=== PATIENT | female | born 1990 | race Caucasian/White ===

== ENCOUNTER 2017-08-28 15:27 | Emergency (ER) | payer OTHER ==
[~2017-08-28] VITALS: Ht 160 cm; Wt 72.6 kg
[~2017-08-28 15:27] MED LIST: ACET325 PO; ACYC400 PO; AMOX500 PO; AZIT250 PO; AZIT500 PO; Augmentin 875-1 EACH PO; CEPH500 PO; CIPR500 PO; CIPRO500 MG PO; DIPATR PO; DIPH50 PO; DOXY100; Flagyl500 MG PO; HYDACE5 PO; HYDR1TAB94 PO; Hydrocodone-Ap1 EA23 PO; IBUP600 PO; MEDR150I; MUPI2TO TOP; NITR100CA PO; Norco 5-325 Ta1 EACH PO; ONDA4ODT MM; ONDA8ODT MM; OXYACE5T PO; OXYC5; PHENA200 PO; PREN-16 PO; PROM25 PO; PSEU120ER PO; Percocet 5-3251 EACH PO; Phentermine HCl15 MG PO; Prilosec20 MG PO; Pseudoephedrine30 MG PO; RXHYDGUAS PO; SULTRIDS PO; Ultram50 MG PO; Zofran Odt4 MG PO; Zofran Odt4 MG SL; Zofran Odt8 MG SL; [UNRECOGNIZED DRUG - REMARK]
[2017-08-28 15:54] LABS: Hematocrit 40.3 % (33.0-51.0); Hemoglobin 14.4 g/dL (11.5-16.0); Mean Corpuscular HGB 37.6 pg (26.0-34.0); Mean Corpuscular HGB Conc 35.7 g/dL (31.5-36.5); Mean Corpuscular Volume 105 fL (80-100); Mean Platelet Volume 10.2 fL (9.1-12.4); Platelet Count 296 K/mm3 (150-400); RDW Coefficient Variation 12.9 % (11.7-14.2); RDW Standard Deviation 49.7 fL (35.1-46.3); Red Blood Cell Count 3.83 M/mm3 (3.80-5.20); White Blood Cell Count 4.61 K/mm3 (4.00-11.30)
[2017-08-28 16:11] LABS: Anion Gap 9 mmol/L (6-16); Blood Urea Nitrogen 7 mg/dL (8-24); Bun/Creatinine Ratio 8.7 (12.0-20.0); CO2, Blood 23 mmol/L (21-32); Calcium, Blood 8.7 mg/dL (8.5-10.1); Chloride, Blood 109 mmol/L (98-108); Glomerular Filtration Rate >60 (60-); Glucose, Blood 101 mg/dL (70-99); Potassium, Blood 3.4 mmol/L (3.5-5.5); Sodium, Blood 141 mmol/L (136-145)
[2017-08-28] MEDS ORDERED: Prilosec Otc20 MG PO (16:20)
[2017-08-28] MEDS ORDERED: Norco 5-325 Ta1 EACH PO (16:42)
== END 2017-08-28 17:07 | disposition home or self-care (01) ==
LOC: ER 15:27
PROVIDERS: Emergency Medicine
DX: S06.0X9A Concussion with loss of consciousness of unspecified duration, initial encounter (principal); S16.1XXA Strain of muscle, fascia and tendon at neck level, initial encounter; S29.012A Strain of muscle and tendon of back wall of thorax, initial encounter; S39.012A Strain of muscle, fascia and tendon of lower back, initial encounter; S60.222A Contusion of left hand, initial encounter; V49.9XXA Car occupant (driver) (passenger) injured in unspecified traffic accident, initial encounter
CPT/HCPCS: 70450; 72125; 72128; 72131; 73130; 80048; 85027; J1885; J2405; J3010

== ENCOUNTER → 2017-09-02 | Outpatient (CLI) | payer OTHER ==
[~2017-09-02] MED LIST changes: +Prilosec Otc20 MG PO
== END ==
LOC: LAB SHORT 15:30 → LAB 15:30
DX: N39.0 Urinary tract infection, site not specified (principal)
CPT/HCPCS: 87086

== ENCOUNTER 2020-06-16 12:32 | Inpatient (IN) | payer OTHER ==
[~2020-06-16] VITALS: Ht 162.6 cm; Wt 98.0 kg
[2020-06-16 13:39] LABS: BASOPHILS ABSOLUTE AUTO 0.04 K/mm3 (0.00-0.23); BASOPHILS PERCENT AUTO 0 % (0-2); EOSINOPHILS ABSOLUTE AUTO 0.02 K/mm3 (0.00-0.68); EOSINOPHILS PERCENT AUTO 0 % (0-6); Hematocrit 22.5 % (33.0-51.0); IMMATURE GRAN ABSOLUTE AUTO 0.13 K/mm3 (0.00-0.10); IMMATURE GRAN PERCENT AUTO 1 % (0-1); LYMPHOCYTES ABSOLUTE AUTO 1.05 K/mm3 (0.84-5.20); LYMPHOCYTES PERCENT AUTO 9 % (21-46); MONOCYTES ABSOLUTE AUTO 0.79 K/mm3 (0.16-1.47); MONOCYTES PERCENT AUTO 6 % (4-13); Mean Corpuscular HGB 43.5 pg (26.0-34.0); Mean Corpuscular HGB Conc 35.6 g/dL (31.5-36.5); Mean Corpuscular Volume 122 fL (80-100); Mean Platelet Volume 9.6 fL (9.1-12.4); NEUTROPHILS ABSOLUTE AUTO 10.22 K/mm3 (1.96-9.15); NEUTROPHILS PERCENT AUTO 83 % (41-73); NRBC ABSOLUTE 0.02 K/mm3 (0.00-0.02); NRBC Auto 0.2 /100 WBC (0.0-0.2); Platelet Count 199 K/mm3 (150-400); RDW Coefficient Variation 19.3 % (11.7-14.2); RDW Standard Deviation 86.7 fL (35.1-46.3); Red Blood Cell Count 1.84 M/mm3 (3.80-5.20); White Blood Cell Count 12.25 K/mm3 (4.00-11.30)
[2020-06-16 13:50] LABS: Alanine Aminotransfer (ALT/SGP 43 U/L (12-78); Albumin, Blood 2.3 g/dL (3.4-5.0); Albumin/Globulin Ratio 0.6 (0.8-1.8); Alk Phos 238 U/L (50-136); Anion Gap 10 mmol/L (6-16); Aspartate Aminotrans (AST/SGOT 175 U/L (12-37); Blood Urea Nitrogen 13 mg/dL (8-24); CO2, Blood 39 mmol/L (21-32); Calcium, Blood 8.1 mg/dL (8.5-10.1); Chloride, Blood 80 mmol/L (98-108); Creatinine, Blood 0.59 mg/dL (0.40-1.00); Ethanol (Alcohol), Blood, Med <3 mg/dL; Globulin, Blood 3.8 g/dL (2.2-4.0); Glomerular Filtration Rate >60 (60-); Glucose, Blood 125 mg/dL (70-99); Potassium, Blood 2.5 mmol/L (3.5-5.5); Sodium, Blood 129 mmol/L (136-145); Total Protein, Blood 6.1 g/dL (6.4-8.2)
[2020-06-16 14:01] LABS: International Normalized Ratio 2.17; Prothrombin Time Results 22.2 Sec (9.7-11.5)
[2020-06-16 14:11] LABS: Acetaminophen, Random <2.0 ug/mL (10.0-30.0)
[2020-06-16 16:58] LABS: BASOPHILS ABSOLUTE AUTO 0.02 K/mm3 (0.00-0.23); BASOPHILS PERCENT AUTO 0 % (0-2); EOSINOPHILS ABSOLUTE AUTO 0.01 K/mm3 (0.00-0.68); EOSINOPHILS PERCENT AUTO 0 % (0-6); Hematocrit 18.5 % (33.0-51.0); Hemoglobin 6.2 g/dL (11.5-16.0); IMMATURE GRAN ABSOLUTE AUTO 0.06 K/mm3 (0.00-0.10); IMMATURE GRAN PERCENT AUTO 1 % (0-1); LYMPHOCYTES ABSOLUTE AUTO 0.76 K/mm3 (0.84-5.20); LYMPHOCYTES PERCENT AUTO 8 % (21-46); MONOCYTES ABSOLUTE AUTO 0.63 K/mm3 (0.16-1.47); MONOCYTES PERCENT AUTO 7 % (4-13); Mean Corpuscular HGB 42.2 pg (26.0-34.0); Mean Corpuscular HGB Conc 33.5 g/dL (31.5-36.5); Mean Corpuscular Volume 126 fL (80-100); Mean Platelet Volume 9.8 fL (9.1-12.4); NEUTROPHILS ABSOLUTE AUTO 7.75 K/mm3 (1.96-9.15); NEUTROPHILS PERCENT AUTO 84 % (41-73); NRBC ABSOLUTE 0.03 K/mm3 (0.00-0.02); NRBC Auto 0.3 /100 WBC (0.0-0.2); Platelet Count 153 K/mm3 (150-400); RDW Coefficient Variation 19.9 % (11.7-14.2); RDW Standard Deviation 90.8 fL (35.1-46.3); Red Blood Cell Count 1.47 M/mm3 (3.80-5.20); White Blood Cell Count 9.23 K/mm3 (4.00-11.30)
[2020-06-16] MEDS ORDERED: OMEP20ER PO (18:35)
--- NOTE | 2020-06-16 18:55 | NUR ---
PT ARRIVES TO ICU BED 8 VIA STRETCHER, SHE HAS 6 LINES INFUSING AT THIS TIME. BLOOD @125ML/NS @125ML/HR PROTONIX @ 10ML/HR MAGNESIUM @ 25ML/HR K+ @ 50ML/HR SANDOSTATIN @ 50MCG/HR, HER EYES ARE JAUNDICES, SKIN IS SLIGHTLY JAUNDICES, ABDOMEN IS ROUND,DISTENDED AND TENDER TO PALPATION, IV SITES WNL, 18G EACH A/C AND 20G IN RIGHT WRIST. PT ANSWERING QUESTIONS APPROPRIATELY AND DENIES ANY N/V AT THIS TIME. MOUTH RINSED AND TEETH BRUSHED PER PATIENT REQUEST FOR BLOOD IN MOUTH. NO ACTIVE SIGNS OF BLEEDING AT THIS MOMENT. PT IS PLEASANT AND COOPERATIVE.
--- NOTE | 2020-06-16 19:15 | NUR ---
ASSUMED CARE OF PT, BEDSIDE REPORT RECEIVED. PT IS RESTING QUIETLY RECLINING IN BED, DENIES CURRENT N/V, DENIES CP/PRESSURE, DENIES SOB/DYSPNEA, DENIES NUMBNESS/TINGLING. GTTS VERIFIED WITH OFFGOING RN, 1ST UNIT PRBCS TRANSFUSING AT 175 ML/HR AT THIS TIME, PLAN FOR CHEM 8 AND CBC 30 MINUTES AFTER TRANSFUSION COMPLETE AND THEN TO TRANSFUSE 2 MORE UNITS PRBCS. LABS AND VITAL SIGNS REVIEWED WITH OFFGOING RN.
[2020-06-16 20:34] LABS: BASOPHILS ABSOLUTE AUTO 0.01 K/mm3 (0.00-0.23); BASOPHILS PERCENT AUTO 0 % (0-2); EOSINOPHILS ABSOLUTE AUTO 0.01 K/mm3 (0.00-0.68); EOSINOPHILS PERCENT AUTO 0 % (0-6); Hemoglobin 6.6 g/dL (11.5-16.0); IMMATURE GRAN ABSOLUTE AUTO 0.04 K/mm3 (0.00-0.10); IMMATURE GRAN PERCENT AUTO 1 % (0-1); LYMPHOCYTES ABSOLUTE AUTO 0.91 K/mm3 (0.84-5.20); LYMPHOCYTES PERCENT AUTO 11 % (21-46); MONOCYTES ABSOLUTE AUTO 0.64 K/mm3 (0.16-1.47); MONOCYTES PERCENT AUTO 7 % (4-13); Mean Platelet Volume 9.7 fL (9.1-12.4); NEUTROPHILS ABSOLUTE AUTO 7.05 K/mm3 (1.96-9.15); NEUTROPHILS PERCENT AUTO 81 % (41-73); Platelet Count 139 K/mm3 (150-400); White Blood Cell Count 8.66 K/mm3 (4.00-11.30)
[2020-06-16 20:49] LABS: Anion Gap 7 mmol/L (6-16); Blood Urea Nitrogen 15 mg/dL (8-24); Bun/Creatinine Ratio 22.3 (12.0-20.0); CO2, Blood 35 mmol/L (21-32); Calcium, Blood 6.8 mg/dL (8.5-10.1); Chloride, Blood 91 mmol/L (98-108); Creatinine, Blood 0.67 mg/dL (0.40-1.00); Glomerular Filtration Rate >60 (60-); Glucose, Blood 97 mg/dL (70-99); Potassium, Blood 3.6 mmol/L (3.5-5.5); Sodium, Blood 133 mmol/L (136-145)
[2020-06-16 20:57] LABS: Hematocrit 19.2 % (33.0-51.0); Mean Corpuscular HGB Conc 34.4 g/dL (31.5-36.5); Mean Corpuscular Volume 116 fL (80-100); Red Blood Cell Count 1.65 M/mm3 (3.80-5.20)
[2020-06-17 01:16] LABS: BASOPHILS ABSOLUTE AUTO 0.02 K/mm3 (0.00-0.23); BASOPHILS PERCENT AUTO 0 % (0-2); EOSINOPHILS ABSOLUTE AUTO 0.03 K/mm3 (0.00-0.68); EOSINOPHILS PERCENT AUTO 0 % (0-6); Hemoglobin 8.3 g/dL (11.5-16.0); IMMATURE GRAN ABSOLUTE AUTO 0.09 K/mm3 (0.00-0.10); IMMATURE GRAN PERCENT AUTO 1 % (0-1); LYMPHOCYTES ABSOLUTE AUTO 1.33 K/mm3 (0.84-5.20); LYMPHOCYTES PERCENT AUTO 14 % (21-46); MONOCYTES ABSOLUTE AUTO 0.59 K/mm3 (0.16-1.47); MONOCYTES PERCENT AUTO 6 % (4-13); Mean Platelet Volume 9.3 fL (9.1-12.4); NEUTROPHILS ABSOLUTE AUTO 7.49 K/mm3 (1.96-9.15); NEUTROPHILS PERCENT AUTO 79 % (41-73); NRBC ABSOLUTE 0.02 K/mm3 (0.00-0.02); NRBC Auto 0.2 /100 WBC (0.0-0.2); Platelet Count 143 K/mm3 (150-400); White Blood Cell Count 9.55 K/mm3 (4.00-11.30)
[2020-06-17 01:17] LABS: Hematocrit 23.9 % (33.0-51.0); Mean Corpuscular HGB 36.9 pg (26.0-34.0); Mean Corpuscular HGB Conc 34.7 g/dL (31.5-36.5); Mean Corpuscular Volume 106 fL (80-100); Red Blood Cell Count 2.25 M/mm3 (3.80-5.20)
[2020-06-17 03:25] LABS: Influenza A, PCR NEGATIVE (NEGATIVE); Influenza B, PCR NEGATIVE (NEGATIVE); Resp Syncytial Virus, PCR NEGATIVE (NEGATIVE); SARS-Cov-2 (COVID-19) PCR, MMC NEGATIVE (NEGATIVE)
[2020-06-17 05:16] LABS: BASOPHILS ABSOLUTE AUTO 0.02 K/mm3 (0.00-0.23); BASOPHILS PERCENT AUTO 0 % (0-2); EOSINOPHILS ABSOLUTE AUTO 0.09 K/mm3 (0.00-0.68); EOSINOPHILS PERCENT AUTO 1 % (0-6); IMMATURE GRAN ABSOLUTE AUTO 0.05 K/mm3 (0.00-0.10); IMMATURE GRAN PERCENT AUTO 1 % (0-1); LYMPHOCYTES PERCENT AUTO 16 % (21-46); MONOCYTES ABSOLUTE AUTO 0.64 K/mm3 (0.16-1.47); MONOCYTES PERCENT AUTO 7 % (4-13); NEUTROPHILS ABSOLUTE AUTO 6.74 K/mm3 (1.96-9.15); NEUTROPHILS PERCENT AUTO 75 % (41-73); NRBC ABSOLUTE 0.02 K/mm3 (0.00-0.02); NRBC Auto 0.2 /100 WBC (0.0-0.2); Platelet Count 135 K/mm3 (150-400); White Blood Cell Count 8.94 K/mm3 (4.00-11.30)
[2020-06-17 05:19] LABS: Mean Corpuscular HGB 37.2 pg (26.0-34.0); Mean Corpuscular HGB Conc 34.8 g/dL (31.5-36.5); Mean Corpuscular Volume 107 fL (80-100); Red Blood Cell Count 2.15 M/mm3 (3.80-5.20)
[2020-06-17 05:33] LABS: International Normalized Ratio 2.14; Prothrombin Time Results 21.9 Sec (9.7-11.5)
[2020-06-17 05:45] LABS: Alanine Aminotransfer (ALT/SGP 32 U/L (12-78); Albumin, Blood 1.7 g/dL (3.4-5.0); Albumin/Globulin Ratio 0.6 (0.8-1.8); Alk Phos 157 U/L (50-136); Anion Gap 6 mmol/L (6-16); Aspartate Aminotrans (AST/SGOT 128 U/L (12-37); Bilirubin, Total 19.3 mg/dL (0.1-1.0); Blood Urea Nitrogen 17 mg/dL (8-24); CO2, Blood 35 mmol/L (21-32); Calcium, Blood 6.6 mg/dL (8.5-10.1); Chloride, Blood 94 mmol/L (98-108); Creatinine, Blood 0.77 mg/dL (0.40-1.00); Globulin, Blood 2.9 g/dL (2.2-4.0); Glomerular Filtration Rate >60 (60-); Glucose, Blood 94 mg/dL (70-99); Potassium, Blood 3.1 mmol/L (3.5-5.5); Sodium, Blood 135 mmol/L (136-145); Total Protein, Blood 4.6 g/dL (6.4-8.2)
--- NOTE | 2020-06-17 05:46 | NUR ---
PT RESTS QUIETLY THROUGHOUT SHIFT, ADMITS TO ABD CRAMPING AT TIMES HOWEVER STATES THAT SHE FEELS MUCH IMPROVED FROM ARRIVAL TO ER. BM X 3 DARK BLACK/MAROON, MEDIUM, LOOSE BM WITH COFFEE GROUND APPEARANCE PRESENT HOWEVER NO CLOTS, PRESSURES IMPROVED FROM HS FOLLOWING TRANSFUSIONS, PT DENIES NAUSEA THROUGHOUT SHIFT. SATS ARE LOW 90S WITH OXYGEN VIA NASAL CANNULA AT 2 L/MIN OF THIS AM, RATE 20-30 THROUGHOUT NOC. PT WAS ABLE TO STAND AT BEDSIDE TO TRANSFER TO BEDSIDE COMMODE, DENIED DIZZINESS/VERTIGO AT TIME OF TRANSFER AND STATES THAT SHE CONTINUES TO FEEL MUCH IMPROVED. PT DID URINATE WHEN UP TO [facility] HOWEVER THE URINE WAS CONTAMINATED WITH BM AND UNABLE TO SEND SPECIMEN, WILL ATTEMPT WITH NEXT VOID.
--- NOTE | 2020-06-17 08:40 | NUR ---
ASSESSMENT- PT ASLEEP, AWAKENS EASILY TO NAME. ALERT, ORIENTED, COOPERATIVE. DENIES ANY PAIN RIGHT NOW. STATES FEELS MUCH BETTER, NO DIZZINESS, FEELS MORE ENERGETIC. COLOR JAUNDICED. SKIN WARM, DRY. NS AT 125 CC/HR, K REPLACEMENT INFUSING. PROTONIX GTT AT 10 CC/HR, SANDOSTATIN AT 50 MCG/HR. 3 PIV INTACT. LUNGS CLEAR, NO SOB. ABDOMEN DISTENDED, BOWEL SOUNDS PRESENT. NO N/V. SINUS TACH. BP STABLE. NO S/S BLEEDING. ABLE TO SIT UP FOR AM CARE.
--- NOTE | 2020-06-17 11:45 | NUR ---
DR. HERNANDES HERE-UPDATED. PT HAS BEEN SLEEPING WITHOUT COMPLAINTS, VSS.
--- NOTE | 2020-06-17 12:25 | NUR ---
PT UP TO VOID-SMALL AMOUNT ICTERIC URINE. ABLE TO TRANSFER WITHOUT PROBLEMS. UPDATE TO DR. HERNANDES-INCREASED IVF TO 125 CC/HR
[2020-06-17 12:56] LABS: U Amphetamine Screen Not Detected; U Barbituate Screen Not Detected; U Benzodiazapine Screen Not Detected; U Buprenorphine Screen Not Detected; U Cannabinoids Screen Not Detected; U Cocaine Screen Not Detected; U Methadone Screen Not Detected; U Methamphetamine Screen Not Detected; U Opiates Screen Not Detected; U Oxycodone Screen Not Detected; U Phencyclidine Screen Not Detected; U Propoxyphene Screen Not Detected
--- NOTE | 2020-06-17 14:29 | NUR ---
UP TO VOID-ONLY VOIDED 25 CC MEASURED BUT URINE NOW YELLOW AND CLEAR. NOTIFIED DR. HERNANDES-CONTINUE IVF AT 125 CC/HR, MONITOR. BLADDER SCAN DONE-ABOUT 100 CC IN BLADDER. DENIES DISCOMFORT, ABDOMEN IS TENDER, DISTENDED WITH BOWEL SOUNDS
[2020-06-17 15:36] LABS: Source, Urine Voided
[2020-06-17 15:38] LABS: Appearance, Urine Turbid (Clear); Blood, Urine 2+ (Neg); Color, Urine Brown (P-Yellow); Glucose Qualitative, Urine Neg (Neg); Ketones, Urine Neg (Neg); Leukocyte Esterase, Urine Neg (Neg); Nitrite, Urine Neg (Neg); Protein, Urine 2+ (Neg); Urobilinogen, Urine 2+ (Normal); pH, Urine 6.5 (5.0-8.0)
[2020-06-17 15:40] LABS: Bilirubin, Urine 3+ (Neg)
[2020-06-17 15:46] LABS: Amorphous Light (0-Heavy); Bacteria Rare /hpf; Oval Fat Bodies Few /lpf; Red Blood Cells, Urine 0-2 /hpf (0-2); Squamous Epithelial Cells Few /hpf (Few); White Blood Cells, Urine 0-2 /hpf (0-5)
--- NOTE | 2020-06-17 16:05 | NUR ---
BEDSIDE SCOPE DONE, PT TOLERATED WELL. SEE REPORT. VS STABLE, NEEDED TO INCREASE OXYGEN TO 3 L/MIN. AWAKE, ALERT, NO NAUSEA, DENIES PAIN. DR. AWAN REPORTED MURMER HEARD. LR 525 CC INFUSED FOR PROCEDURE.
--- NOTE | 2020-06-17 16:22 | NUR ---
06/17/20 1622 SOL GALEAS History, Chart, Medications and Allergies reviewed before start of procedure. 3-LEAD EKG REVIEWED WITH PHYSICIAN PRIOR TO START OF PROCEDURE. O2 VIA N/C INTACT THROUGHOUT SEDATION/PROCEDURE. MONITOR INTACT WITH CONTINUOUS PULSE OXIMETRY AND INTERMITTENT BP. MAC WITH DR. FREED.
[2020-06-17 16:58] LABS: CPK Creatine Kinase 54 U/L (26-193)
[2020-06-17 17:11] LABS: Lactate Dehydrogenase (Ld),Bld 399 U/L (100-240)
--- NOTE | 2020-06-17 17:16 | NUR ---
BLADDER SCAN FOR 325 CC, PT C/O BEING UNABLE TO VOID, C/O PRESSURE SENSATION. GANN PLACED BUT ONLY 5 CC ICTERIC URINE OBTAINED. SPECIMEN SENT. NOTIFIED DR. HERNANDES OF MURMER AND LOW UO 60 CC FOR SHIFT. HAS HAD TWO SMALL DIARRHEA STOOLS. ORDERS FOR ONE LITER BOLUS. BP STABLE. HEARTRATE SINUS TACH 100'S AT REST, UP TO 110'S WHEN UP OUT OF BED. NO S/S BLEEDING. C/O HEMORRHOIDS-LOTION APPLIED WITH RELIEF.
--- NOTE | 2020-06-17 17:56 | NUR ---
ABLE TO TAKE JUICE WITHOUT ANY N/V BUT DID C/O ABDOMINAL CRAMPING. SMALL LOOSE STOOL YELLOW/BROWN. IV FLUID BOLUS INFUSING. ACETYLCYSTEINE INFUSING. BP STABLE. CONTINUE TO MONITOR
--- NOTE | 2020-06-17 19:22 | NUR ---
PT C/O BACK AND ABDOMINAL DISCOMFORT, STATES FEELS ABDOMEN IS LARGER, STILL SOFT, NO N/V. URINE OUTPUT IMPROVING. REPOSITIONED WITH SOME IMPROVEMENT
--- NOTE | 2020-06-17 19:48 | NUR ---
ASSUMED CARE OF PT, BEDSIDE REPORT RECEIVED. PT RESTING QUIETLY, RECLINING IN BED, STATES THAT SHE DOES NOT HAVE PAIN HOWEVER SHE DOES HAVE ABD DISCOMFORT, AND STATES THAT IT'S MORE THAT SHE'S FEELING BLOATED SINCE PROCEDURE "LIKE I'M " SHE DENIES N/V, DENIES CP/PRESSURE, DENIES SOB/DYSPNEA, GTTS ARE VERIFIED WITH OFFGOING RN. PT DOES VERBALIZE FRUSTRATION WITH FEELING LIKE SHE IS TIED DOWN BY MONITORING CORDS AND LINES, IV LINES, AND GANN CATHETER WELL ONGOING ILLNESS. THIS RN LISTENED TO PT'S FRUSTRATIONS AND REASSURED HER THAT HER FEELINGS ARE VERY NORMAL, ASSISTED PT WITH ARRANGEMENT OF LINES AND CORDS TO MAXIMIZE IND MOVEMENT, ENCOURAGED PT TO CALL FOR ASSIST WITH MOVEMENT NEEDED IN BETWEEN PURPOSEFUL ROUNDS.
[2020-06-18 04:02] LABS: Hematocrit 21.9 % (33.0-51.0); Hemoglobin 7.6 g/dL (11.5-16.0); Mean Corpuscular HGB 37.4 pg (26.0-34.0); Mean Corpuscular HGB Conc 34.7 g/dL (31.5-36.5); Mean Corpuscular Volume 108 fL (80-100); Mean Platelet Volume 9.7 fL (9.1-12.4); Platelet Count 110 K/mm3 (150-400); Red Blood Cell Count 2.03 M/mm3 (3.80-5.20); White Blood Cell Count 8.79 K/mm3 (4.00-11.30)
[2020-06-18 04:09] LABS: International Normalized Ratio 2.25
[2020-06-18 04:24] LABS: Alanine Aminotransfer (ALT/SGP 31 U/L (12-78); Albumin, Blood 1.6 g/dL (3.4-5.0); Albumin/Globulin Ratio 0.6 (0.8-1.8); Alk Phos 131 U/L (50-136); Anion Gap 9 mmol/L (6-16); Aspartate Aminotrans (AST/SGOT 107 U/L (12-37); Bilirubin, Total 20.9 mg/dL (0.1-1.0); Blood Urea Nitrogen 15 mg/dL (8-24); CO2, Blood 28 mmol/L (21-32); Calcium, Blood 6.2 mg/dL (8.5-10.1); Chloride, Blood 95 mmol/L (98-108); Creatinine, Blood 0.71 mg/dL (0.40-1.00); Globulin, Blood 2.9 g/dL (2.2-4.0); Glomerular Filtration Rate >60 (60-); Glucose, Blood 153 mg/dL (70-99); Magnesium, Blood 1.6 mg/dL (1.6-2.4); Phosphorus, Blood 1.4 mg/dL (2.5-4.9); Potassium, Blood 2.8 mmol/L (3.5-5.5); Sodium, Blood 132 mmol/L (136-145); Total Protein, Blood 4.5 g/dL (6.4-8.2)
--- NOTE | 2020-06-18 05:05 | NUR ---
PT RESTS QUIETLY THROUGHOUT SHIFT, CONT TO EXPRESS FRUSTRATION WITH MONITORING AND IV LINES, SHE STATES THAT SHE JUST MISSES HER CHILDREN. URINE OUTPUT IS IMPROVED THIS SHIFT. BP MAINTAINS STABLE THROUGHOUT SHIFT. SHALLOW RESPIRATIONS CONTINUE THIS AM, WILL CONT TO ENCOURAGE IS USE, LUNGS REMAIN CLEAR WITH DIM BASES BILAT HOWEVER OXYGEN REQUIREMENTS DID INCREASE FROM 2 L/MIN TO 4 L/MIN VIA NASAL CANNULA, PT CONT TO DENY SOB/DYSPNEA. ABD REMAINS DISTENDED WITH TENDERNESS OVER RIGHT UPPER QUADRANT WITH PALPATION, OTHERWISE SOFT. GANN REMAINS IN PLACE. BOWEL MOVEMENT EARLY THIS SHIFT WAS BROWN IN COLOR, SMALL AMOUNT.
[2020-06-18 06:10] LABS: HBSAG SCREEN Negative (Negative); HEP A AB, IGM Negative (Negative); HEP B CORE AB, IGM Negative (Negative); HEP C VIRUS AB <0.1 (0.0-0.9)
--- NOTE | 2020-06-18 08:45 | NUR ---
ASSESSMENT- PT ASLEEP, AWAKENS EASILY TO NAME. ALERT, COOPERATIVE. STATES "DON'T FEEL GOOD TODAY", DENIES PAIN BUT STATES TIRED, UNABLE TO SLEEP, C/O MONITOR AND CORDS. EXPLAINED PLAN OF CARE, REASSURANCE GIVEN. SINUS RHYTHM, BP STABLE. LUNGS CLEAR, DECREASED TO 2 L/MIN NC WITH CONTINUOUS SATURATIONS MONITORED. ABDOMEN LARGE, SOFT, NONTENDER. STATES FEELS ABDOMEN IS VERY LARGE, ANASARCA PRESENT. UO VIA GANN-IMPROVED FROM YESTERDAY. IV NS AT 125 CC/HR, PROTONIX GTT, ACETYLCYSTELEINE 3RD BAG INFUSING AND KPHOS REPLACEMENT. PIV X 3 INTACT. ABLE TO SIT UP IN BED AND TURN FOR REPOSITIONING.
--- NOTE | 2020-06-18 09:05 | NUR ---
PT SCHEDULED FOR MRI. UPDATE TO DR. MOORE-ICU STATUS, MEDS, VS. OK TO HAVE MRI WITH IV'S OFF.
--- NOTE | 2020-06-18 09:51 | NUR ---
PT IN MRI, SATURATION MONITOR WITH HEART RATE ON. ABLE TO FOLLOW DIRECTIONS. DIFFICULTY WITH ANXIETY, BREATH HOLDING FOR TEST. REASSURANCE GIVEN.
--- NOTE | 2020-06-18 10:38 | NUR ---
PT RETURN TO ROOM, UP TO BEDSIDE COMMODE WITH STANDBY ASSIST. VERY TIRED TODAY. AM CARE DONE. VSS. SOME NAUSEA AFTER TAKING SIPS JUICE
--- NOTE | 2020-06-18 11:06 | NUR ---
UP TO BEDSIDE COMMODE, STATES FEELS VERY TIRED. EMESIS OF 175 CC BLOOD. BP, HR STABLE. NOTIFIED DR. MOORE-WILL BE HERE
--- NOTE | 2020-06-18 11:43 | NUR ---
DR. MOORE AT BEDSIDE, ASSESSED PT. PT TEARFUL, STATES ANXIOUS, SUPPORT GIVEN, EXPLAINED PLAN OF CARE. STATES NAUSEA RESOLVED AFTER EMESIS. C/O LOWER BACK PAIN, IMPROVED WITH REPOSITIONING.
[2020-06-18 11:48] LABS: Hemoglobin 7.9 g/dL (11.5-16.0)
[2020-06-18 11:50] LABS: Hematocrit 23.8 % (33.0-51.0)
--- NOTE | 2020-06-18 13:51 | NUR ---
NO S/S OF FURTHER BLEEDING. UP TO BEDSIDE COMMODE WITH STANDBY ASSIST. SINUS TACH. BP STABLE. NPO.
[2020-06-18 15:33] LABS: Hemoglobin 7.2 g/dL (11.5-16.0)
--- NOTE | 2020-06-18 15:56 | NUR ---
VSS. IN BETTER SPIRITS, STATES WAS ABLE TO SLEEP FOR ABOUT AN HOUR AND THAT HELPED WITH LOWER BACK DISCOMFORT-STATE PAIN GONE NOW. AT BEDSIDE. DR. BLACKWOOD HERE-DISCUSSED PLAN WITH PT AND PT'S . LABS REPEATED. NO FURTHER N/V. TAKING JUST SMALL SIPS H20
--- NOTE | 2020-06-18 16:30 | NUR ---
DR. MOORE HERE-UPDATED WITH LABS. NS TO BE D/C
--- NOTE | 2020-06-18 17:29 | NUR ---
PT SLEEPING NOW. SINUS RHYTHM, HEARTRATE IMPROVED. PIV INTACT. NO S/S BLEEDING. REMAINS JAUNDICED. IV TKO
--- NOTE | 2020-06-18 18:54 | NUR ---
PT UP TO BEDSIDE COMMODE, NO DIZZINESS, NO COMPLAINTS. INCONTINENT OF MAROON STOOL 150 CC. PERICARE DONE. H/H DUE-ORDERED EARLY. NO N/V.
[2020-06-18 19:16] LABS: Hemoglobin 7.4 g/dL (11.5-16.0)
[2020-06-18 19:18] LABS: Hematocrit 21.7 % (33.0-51.0)
--- NOTE | 2020-06-18 19:30 | NUR ---
ASSUMED CARE BEDSIDE REPORT RECEIVED FROM FREDDY Torres RN; PT A&O X 4; ANSWERING APPROPRIATELY; VSS; NSR NOTED ON MONITOR; DENIES CHEST PAIN; O2 SATS >93 ON 4L NC; PT STATES SHE IS FATIGUED AND HOPING TO GET SLEEP TONIGHT, REQUESTING MINIMAL DISTRUPTIONS; CURRENTLY RESTING IN BED W/ TV ON; NO DISTRESS NOTED; CALL LIGHT IN REACH; BED IN LOWEST POSITION.
--- NOTE | 2020-06-18 20:10 | NUR ---
SPOKE W/ CHRISTINA THOMPSON @ 1999 TO NOTIFY HER OF HGB OF 7.4; NO NEW ORDERS GIVEN
[2020-06-18 23:41] LABS: Hematocrit 20.2 % (33.0-51.0)
--- NOTE | 2020-06-18 23:43 | NUR ---
PT ALERT AFTER LAB DRAW; C/O NAUSEA; SCHEDULED REGLAN ADMINISTERED; PT UP TO BSC W/ MOD ASSIST; HAD MEDIUM DK BM; PT BACK TO BED W/ NO ISSUE
--- NOTE | 2020-06-19 00:03 | NUR ---
UPDATE LAB DRAW SHOWS HGB 7.0; NOTIFIED, HE STATES TO CONTINUE TO MONITOR IF PT BECOMES HYPOTENSIVE TO CALL BACK; WAIT FOR AM LAB DRAW TO COMPARE; PT CURRENTLY RESTING W/ NO DISTRESS NOTED.
--- NOTE | 2020-06-19 02:27 | NUR ---
UPDATE NOTIFIED OF LOW URINE OUTPUT OF 100ML THIS SHIFT THUS FAR; NEW ORDER GIVEN FOR NS @ 125 ML/HR; PT ENCOURAGED TO SIP WATER / ICE CHIPS, STATES SHE IS AFRAID SHE WILL BECOME NAUSEATED IF SHE DRINKS; SMALL SIPS ENCOURAGED; URINE IS DK. TEA COLORED
[2020-06-19 03:38] LABS: BASOPHILS ABSOLUTE AUTO 0.03 K/mm3 (0.00-0.23); BASOPHILS PERCENT AUTO 0 % (0-2); EOSINOPHILS ABSOLUTE AUTO 0.08 K/mm3 (0.00-0.68); EOSINOPHILS PERCENT AUTO 1 % (0-6); Hematocrit 20.1 % (33.0-51.0); Hemoglobin 6.9 g/dL (11.5-16.0); IMMATURE GRAN ABSOLUTE AUTO 0.09 K/mm3 (0.00-0.10); IMMATURE GRAN PERCENT AUTO 1 % (0-1); LYMPHOCYTES ABSOLUTE AUTO 1.13 K/mm3 (0.84-5.20); LYMPHOCYTES PERCENT AUTO 15 % (21-46); MONOCYTES ABSOLUTE AUTO 0.56 K/mm3 (0.16-1.47); MONOCYTES PERCENT AUTO 7 % (4-13); Mean Corpuscular HGB 37.3 pg (26.0-34.0); Mean Corpuscular HGB Conc 34.3 g/dL (31.5-36.5); Mean Corpuscular Volume 109 fL (80-100); Mean Platelet Volume 9.8 fL (9.1-12.4); NEUTROPHILS ABSOLUTE AUTO 5.66 K/mm3 (1.96-9.15); NEUTROPHILS PERCENT AUTO 75 % (41-73); NRBC ABSOLUTE 0.02 K/mm3 (0.00-0.02); NRBC Auto 0.3 /100 WBC (0.0-0.2); Platelet Count 125 K/mm3 (150-400); RDW Coefficient Variation 29.2 % (11.7-14.2); RDW Standard Deviation 101.7 fL (35.1-46.3); Red Blood Cell Count 1.85 M/mm3 (3.80-5.20); White Blood Cell Count 7.55 K/mm3 (4.00-11.30)
[2020-06-19 03:39] LABS: Base Excess Venous 7.9 mmol/L; Bicarbonate Venous 31.2 mmol/L (24.0-30.0); PCO2 Venous 36.6 mmHg (38-42); PO2 Venous 167 mmHg (38-42); pH Blood Venous 7.53 (7.34-7.37)
[2020-06-19 03:53] LABS: International Normalized Ratio 1.99; Prothrombin Time Results 20.5 Sec (9.7-11.5)
[2020-06-19 04:04] LABS: Alanine Aminotransfer (ALT/SGP 26 U/L (12-78); Albumin, Blood 1.6 g/dL (3.4-5.0); Albumin/Globulin Ratio 0.6 (0.8-1.8); Alk Phos 126 U/L (50-136); Anion Gap 6 mmol/L (6-16); Aspartate Aminotrans (AST/SGOT 114 U/L (12-37); Bilirubin, Total 22.1 mg/dL (0.1-1.0); Blood Urea Nitrogen 14 mg/dL (8-24); Bun/Creatinine Ratio 17.6 (12.0-20.0); CO2, Blood 30 mmol/L (21-32); Calcium, Blood 6.6 mg/dL (8.5-10.1); Chloride, Blood 98 mmol/L (98-108); Globulin, Blood 2.8 g/dL (2.2-4.0); Glomerular Filtration Rate >60 (60-); Glucose, Blood 89 mg/dL (70-99); Potassium, Blood 2.9 mmol/L (3.5-5.5); Sodium, Blood 134 mmol/L (136-145); Total Protein, Blood 4.4 g/dL (6.4-8.2)
--- NOTE | 2020-06-19 04:55 | NUR ---
UPDATE NOTIFIED OF AM LAB VALUES; HGB 6.9, K+2.9, N+134 AND PH 7.53; NEW ORDERS GIVEN, REFER TO EMAR; PT CURRENTLY RESTING
--- NOTE | 2020-06-19 05:55 | NUR ---
SHIFT SUMMARY PT A&O X 4; VSS; DENIES CHEST PAIN; 6 BEAT RUN OF VTACH THIS AM, PT ASSYMPTOMATIC; O2 SATS >93 ON 3L NC; PRBC INFUSING TO L AC; NS & POTASSIUM INFUSING ON R AC; PT EDUCATED ON HGB OF 6.9 AND NEED FOR TRANSFUSION, PT AGREED; GANN PATENT & DRAINING DK. TEA COLORED URINE LOW OUTPUT NOTED, DISCUSSED W/HOSPITALIST AND PREPRESS OPERATOR THIS SHIFT; PT SLEPT ON AND OFF T/O SHIFT; SBA TO BSC, PT HAD SEVERAL SM TO MED STEFANO NICHOLSON BM THIS SHIFT; CALL LIGHT IN REACH; BED IN LOWEST POSITION; WILL CONTINUE TO MONITOR CLOSELY UNTIL HAND OFF TO DAY SHIFT RN.
--- NOTE | 2020-06-19 08:25 | NUR ---
ASSESSMENT- PT AWAKE, ALERT, COOPERATIVE. STATES FEELS BETTER TODAY, SLEPT SOME LAST NIGHT. DENIES ANY PAIN OR N/V. ABDOMEN DISTENDED BUT SOFT. TAKING SIPS WATER. SINUS RHYTHM, HEARTRATE UP TO 100-110'S WITH ACTIVITY. UP TO BEDSIDE COMMODE. NO DIZZINESS OR COMPLAINTS. NS AT 125 CC/HR, BLOOD INFUSING WITHOUT ANY S/S REACTION. 3 PIV INTACT. POTASSIUM REPLACEMENT INFUSING. LUNGS CLEAR, VERY DIMINISHED BASES. OXYGEN VIA NASAL CANNULA. COLOR ICTERIC. UO LOW VIA GANN. AM CARE DONE
[2020-06-19 10:11] LABS: Hematocrit 24.9 % (33.0-51.0); Hemoglobin 8.7 g/dL (11.5-16.0)
--- NOTE | 2020-06-19 10:46 | NUR ---
DR. MOORE HERE-ASSESSED PT, UPDATED. RECEIVED ONE UNIT PACKED CELLS TODAY-CLARIFIED ORDER. VSS. AWAITING SENDOUT LABS. VITAMIN K TO BE GIVEN.
[2020-06-19 13:13] LABS: CMV QUANT DNA PCR (PLASMA) Negative (Negative)
--- NOTE | 2020-06-19 16:00 | NUR ---
CARE ASSUMED FROM SIA HAYES. PT PLEASANT, ENGAGING. PT CONTINUES WITH LARGE, SWOLLEN BELLY. STATES UNCOMFORTABLE, TENDER TO PALPATION. FACE STILL SWOLLEN, JAUNDICE CONTINUES FROM HEAD TO TOE, LEGS WITH GOOD CIRCULATION, GOOD PULSES. STATES SHE FEELS TIRED, SCARED ABOUT HER PROCEDURE TOMORROW.
--- NOTE | 2020-06-19 16:12 | NUR ---
REPORT TO AQUILES STOVALL. PLANS FOR LIVER BIOPSY IN A.M. PER ARIES PHOENIX.
[2020-06-19 16:32] LABS: Hematocrit 23.1 % (33.0-51.0); Hemoglobin 8.1 g/dL (11.5-16.0)
--- NOTE | 2020-06-19 18:31 | NUR ---
JANIS HAD FELT A BIT HUNGRY, DRANK SOME OF HER PEA SOUP,PEACH SAUCE AND SOME MILK, GOT UP TO THE BSC, WAS INCONTINENT OF SOME YELLOW LIQUID, HAD AN ADDITIONAL 50ML IN THE BSC THEN AFTER RETURNING TO BED FELT VERY NAUSEOUS. I GAVE HER SOME ZOFRAN PER JUL. STATES IT IS HELPING.
[2020-06-19 21:08] LABS: BASOPHILS ABSOLUTE AUTO 0.06 K/mm3 (0.00-0.23); BASOPHILS PERCENT AUTO 0 % (0-2); EOSINOPHILS ABSOLUTE AUTO 0.26 K/mm3 (0.00-0.68); EOSINOPHILS PERCENT AUTO 1 % (0-6); IMMATURE GRAN ABSOLUTE AUTO 0.84 K/mm3 (0.00-0.10); IMMATURE GRAN PERCENT AUTO 4 % (0-1); LYMPHOCYTES ABSOLUTE AUTO 3.33 K/mm3 (0.84-5.20); LYMPHOCYTES PERCENT AUTO 17 % (21-46); MONOCYTES PERCENT AUTO 8 % (4-13); Mean Corpuscular HGB 36.1 pg (26.0-34.0); Mean Corpuscular HGB Conc 33.5 g/dL (31.5-36.5); Mean Corpuscular Volume 108 fL (80-100); Mean Platelet Volume 9.6 fL (9.1-12.4); NEUTROPHILS ABSOLUTE AUTO 13.22 K/mm3 (1.96-9.15); NEUTROPHILS PERCENT AUTO 69 % (41-73); NRBC ABSOLUTE 0.06 K/mm3 (0.00-0.02); NRBC Auto 0.3 /100 WBC (0.0-0.2); Platelet Count 224 K/mm3 (150-400); RDW Coefficient Variation 30.1 % (11.7-14.2); Red Blood Cell Count 1.66 M/mm3 (3.80-5.20); White Blood Cell Count 19.31 K/mm3 (4.00-11.30)
[2020-06-19 21:14] LABS: Hematocrit 17.9 % (33.0-51.0)
--- NOTE | 2020-06-19 22:54 | NUR ---
BLEED / UPDATE / SCOPE PT A&O X4 UPON CARE ASSUMPTION @ APPROX 1900. VSS. SPO2 > 92% ON 2L NC. MONITOR SHOWING ST, HR 100-110's. PT REPORT OF MILD NAUSEA & ABD TENDERNESS. AT APPROX 2009 PT W/ 900 MLS LIQUID DARK MAROON EMESIS W/ CLOTS MEASURED, AND SOME UNMEASURED AMOUNT ON GOWN. PT LAYING IN BED W/ REPORT OF "I DON'T FEEL SO GOOD. I FEEL LIGHT HEADED. I FEEL LIKE I'M GOING TO PASS OUT." BP LOW, FRONT END SOFTWARE DEVELOPER LEANA TO BEDSIDE W/ ORDER FOR NS BOLUS. BOLUS INITIATED W/ NO IMPROVEMENT IN BP PT ALSO CONTINUED TO HAVE FURTHER LIQUID DARK MAROON EMESIS. FRONT END SOFTWARE DEVELOPER W/ INSTRUCTION TO INITIATE 2ND BOLUS NS IN 2ND IV SITE & TRANSFUSE 2 UNITS PRBC's. PT THEN W/ APPROX 250 MLS DARK MAROON LIQUID PER RECTUM WELL. FRONT END SOFTWARE DEVELOPER LEANA W/ NOTIFICATION TO MD BLACK ON PT STATUS. MD GALLEGOS TO PT BEDSIDE FOR PT ASSESSMENT & PLAN FOR INTUBATION. PT W/ CONTINUED BLEEDING. 2 ADDITIONAL UNITS PRBC's ORDERED & GIVEN TO PT VIA FAST FLOW INFUSION. PT INTUBATED @ APPROX 2145. MD BLACK TO PT BEDSIDE FOR SCOPE. THIS RN GAVE REPORT TO ICU NURSE ASSUMING CARE OF PT POST INTUBATION/SCOPE.
--- NOTE | 2020-06-19 23:39 | NUR ---
06/19/20 2918 Neftaly Rahman History, Chart, Medications and Allergies reviewed before start of procedure.MONITOR INTACT WITH CONTINUOUS PULSE OXIMETRY AND INTERMITTENT BP.3-LEAD EKG REVIEWED WITH PHYSICIAN PRIOR TO START OF PROCEDURE.See Anesthesia record.
[2020-06-19 23:40] LABS: Alanine Aminotransfer (ALT/SGP 21 U/L (12-78); Albumin, Blood 2.1 g/dL (3.4-5.0); Albumin/Globulin Ratio 1.2 (0.8-1.8); Alk Phos 69 U/L (50-136); Anion Gap 10 mmol/L (6-16); Aspartate Aminotrans (AST/SGOT 51 U/L (12-37); Bilirubin, Total 13.7 mg/dL (0.1-1.0); Blood Urea Nitrogen 15 mg/dL (8-24); Bun/Creatinine Ratio 15.5 (12.0-20.0); CO2, Blood 23 mmol/L (21-32); Chloride, Blood 105 mmol/L (98-108); Creatinine, Blood 0.97 mg/dL (0.40-1.00); Globulin, Blood 1.8 g/dL (2.2-4.0); Glomerular Filtration Rate >60 (60-); Glucose, Blood 160 mg/dL (70-99); Magnesium, Blood 1.3 mg/dL (1.6-2.4); Phosphorus, Blood 3.3 mg/dL (2.5-4.9); Sodium, Blood 138 mmol/L (136-145); Total Protein, Blood 3.9 g/dL (6.4-8.2)
[2020-06-19 23:49] LABS: Mean Platelet Volume 9.6 fL (9.1-12.4); Platelet Count 152 K/mm3 (150-400)
[2020-06-19 23:51] LABS: Mean Corpuscular HGB 31.2 pg (26.0-34.0); Mean Corpuscular HGB Conc 33.7 g/dL (31.5-36.5); Mean Platelet Volume 9.5 fL (9.1-12.4); NRBC ABSOLUTE 0.11 K/mm3 (0.00-0.02); NRBC Auto 0.6 /100 WBC (0.0-0.2); Platelet Count 133 K/mm3 (150-400); RDW Coefficient Variation 17.6 % (11.7-14.2); RDW Standard Deviation 42.5 fL (35.1-46.3); Red Blood Cell Count 1.86 M/mm3 (3.80-5.20); White Blood Cell Count 18.77 K/mm3 (4.00-11.30)
[2020-06-19 23:56] LABS: Mean Corpuscular Volume 93 fL (80-100)
[2020-06-19 23:57] LABS: Hematocrit 17.2 % (33.0-51.0); Hemoglobin 5.8 g/dL (11.5-16.0)
[2020-06-19 23:58] LABS: Hematocrit 16.9 % (33.0-51.0); Hemoglobin 5.8 g/dL (11.5-16.0)
[2020-06-20] LABS: D-Dimer, Quantitative 3.08 mg/L FEU (0.00-0.52); International Normalized Ratio 1.48; Prothrombin Time Results 15.5 Sec (9.7-11.5)
--- NOTE | 2020-06-20 00:05 | NUR ---
PROPOFOL WASTE PROPOFOL BOTTLE AND SYRINGE WITH PROPOFOL FOUND IN ROOM AFTER EGD PROCEDURE. 150MG PROPOFOL (15CC TOTAL) WASTED AT THIS TIME WITH AXEL KUMARI RN.
[2020-06-20 00:12] LABS: PCO2 Arterial 37.6 mmHg (35-45); PO2 Arterial 69.8 mmHg (80-100)
[2020-06-20 00:17] LABS: BAND PERCENT MAN 5 % (0-8); BASOPHILS PERCENT MAN 0 % (0-2); EOSINOPHILS ABSOLUTE MAN 0.37 K/mm3 (0.00-0.68); EOSINOPHILS PERCENT MAN 2 % (0-6); LYMPHOCYTES ABSOLUTE MAN 2.25 K/mm3 (0.84-5.20); LYMPHOCYTES PERCENT MAN 12 % (21-46); METAMYELOCYTE ABSOLUTE MAN 0.18 K/mm3 (0.00-0.00); METAMYELOCYTE PERCENT MAN 1 % (0-0); MONOCYTES ABSOLUTE MAN 0.93 K/mm3 (0.16-1.47); MONOCYTES PERCENT MAN 5 % (4-13); NEUTROPHILS ABSOLUTE MAN 15.01 K/mm3 (1.96-9.15); SEG NEUTROPHILS PERCENT MAN 75 % (41-73); TOTAL CELLS COUNTED 100
--- NOTE | 2020-06-20 00:35 | NUR ---
CHANGE IN CONDITION ASSUMED CARE OF PATIENT AT 2230. EGD BEING PERFORMED AT BEDSIDE. BLOOD PRODUCTS TRANSFUSING CHARTED. PATIENT INTUBATED 7.5 SIZE ETT 20 CM AT THE TEETH. VENT SETTINGS AC 16, VT 380, PEEP 5, FIO2 45%. SATS ABOVE 95%. PATIENT CONTINUES TO BLEED ORALLY AND RECTALLY, TISH RED BLOOD. WAKING UP ON 70MCG OF PROPOFOL, SHAKING HEAD NO AND TEARFUL. CONTINUING TO MEDICATE FOR COMFORT AND VERBALLY REASSURING PATIENT AND EDUCATING REGARDING CONDITION.
[2020-06-20 03:40] LABS: Hematocrit 23.7 % (33.0-51.0); Hemoglobin 8.5 g/dL (11.5-16.0); Mean Corpuscular HGB 31.6 pg (26.0-34.0); Mean Corpuscular HGB Conc 35.9 g/dL (31.5-36.5); Mean Platelet Volume 9.4 fL (9.1-12.4); NRBC ABSOLUTE 0.03 K/mm3 (0.00-0.02); NRBC Auto 0.6 /100 WBC (0.0-0.2); Platelet Count 63 K/mm3 (150-400); RDW Coefficient Variation 14.3 % (11.7-14.2); RDW Standard Deviation 43.4 fL (35.1-46.3); Red Blood Cell Count 2.69 M/mm3 (3.80-5.20); White Blood Cell Count 4.81 K/mm3 (4.00-11.30)
[2020-06-20 03:43] LABS: Mean Corpuscular Volume 88 fL (80-100)
[2020-06-20 03:52] LABS: International Normalized Ratio 1.66; Prothrombin Time Results 17.3 Sec (9.7-11.5)
--- NOTE | 2020-06-20 04:00 | NUR ---
REASSESSMENT NO ACUTE CHANGES FROM PREVIOUS ASSESSMENT. VENT SETTINGS REMAIN UNCHANGED. LABS AND URINE OUTPUT REVIEWED WITH DR. MCFADDEN, POTASSIUM ORDERED. WILL GIVE LASIX AFTER POTASSIUM INFUSION IS COMPLETE. VITALS STABLE. WILL CONTINUE TO MONITOR.
[2020-06-20 04:12] LABS: BASOPHILS ABSOLUTE MAN 0.04 K/mm3 (0.00-0.23); BASOPHILS PERCENT MAN 1 % (0-2); EOSINOPHILS PERCENT MAN 0 % (0-6); LYMPHOCYTES ABSOLUTE MAN 0.91 K/mm3 (0.84-5.20); LYMPHOCYTES PERCENT MAN 19 % (21-46); METAMYELOCYTE ABSOLUTE MAN 0.09 K/mm3 (0.00-0.00); METAMYELOCYTE PERCENT MAN 2 % (0-0); MONOCYTES ABSOLUTE MAN 0.14 K/mm3 (0.16-1.47); MONOCYTES PERCENT MAN 3 % (4-13); SEG NEUTROPHILS PERCENT MAN 75 % (41-73); TOTAL CELLS COUNTED 100
[2020-06-20 04:15] LABS: Alanine Aminotransfer (ALT/SGP 19 U/L (12-78); Albumin, Blood 1.9 g/dL (3.4-5.0); Albumin/Globulin Ratio 1.2 (0.8-1.8); Alk Phos 59 U/L (50-136); Anion Gap 8 mmol/L (6-16); Aspartate Aminotrans (AST/SGOT 56 U/L (12-37); Bilirubin, Total 17.7 mg/dL (0.1-1.0); Blood Urea Nitrogen 15 mg/dL (8-24); Bun/Creatinine Ratio 14.4 (12.0-20.0); CO2, Blood 25 mmol/L (21-32); Calcium, Blood 5.8 mg/dL (8.5-10.1); Chloride, Blood 106 mmol/L (98-108); Creatinine, Blood 1.04 mg/dL (0.40-1.00); Globulin, Blood 1.6 g/dL (2.2-4.0); Glomerular Filtration Rate >60 (60-); Glucose, Blood 111 mg/dL (70-99); Potassium, Blood 2.7 mmol/L (3.5-5.5); Sodium, Blood 139 mmol/L (136-145); Total Protein, Blood 3.5 g/dL (6.4-8.2)
--- NOTE | 2020-06-20 06:20 | NUR ---
SHIFT SUMMARY PATIENT WITH ACUTE EVENTS OF BLEEDING, REQUIRING INTUBATION FOR AIRWAY MANAGEMENT, AND AN EGD WITH INTERVENTIONS WAS PERFORMED AT BEDSIDE. MULTIPLE UNITS OF BLOOD PRODUCTS WERE GIVEN. PATIENT CURRENTLY REMAINS UNTIBATED VENT SETTINGS AC 16, VT 380, PEEP 5, FIO2 35%, SATS REMAINS ABOVE 95%. PATIENT AWAKENS EASILY, TEARFUL AND ANXIOUS WHEN AWAKE. PROPOFOL TITREATED FOR SEDATION AND COMFORT. LABS REVIEWED WITH DR. MCFADDEN. AND TREATED APPROPRAITE. WILL CONTINUE TO MONITOR ADN REPORT TO ONCOMING RN.
--- NOTE | 2020-06-20 07:15 | NUR ---
BEGINNING OF SHIFT Assumed care of pt at 0700. Bedside report received from Clara STOVALL. Pt sedated with propofol at 80 mcg/kg/min. Pt also recently received fentanyl due to persistent agitation. Per offgoing RN, Dr Obregon aware of high propofol rate. BP low, which is new after receiving fentayl per offgoing RN. Plan to titrate propofol down as pt tolerates. Neosynephrine available for BP support. Pt has 7.5 cm ETT, 20 cm ATT. Ventilator settings AC 14/380/5/35%. SpO2 90% or greater. Lungs clear with diminished bases. At this time, pt has productive cough with a small amount of clear but yellow-tinted thin secretions. Pt has hernandez catheter with a small amount of dark brown urine in tubing but none in collection bag. Plan to give IV lasix when potassium is done, if pt's BP tolerates. SR per monitor. Pt does not have OG tube due to esophageal bleed with recent intervention. Pt in bilat wrist restraints to prevent self-extubation.
[2020-06-20 08:09] LABS: HBV IU/ML HBV DNA not detected IU/mL (.); HEPATITIS C QUANTITATION HCV Not Detected IU/mL (.)
[2020-06-20 09:33] LABS: Hematocrit 23.9 % (33.0-51.0); Hemoglobin 8.6 g/dL (11.5-16.0)
--- NOTE | 2020-06-20 10:30 | NUR ---
Pt awoke with propofol at 60 mcg/kg/min. Mild agitation, hitting hand gently against side rail. Tracks this RN's movement across room. Nods "yes" when asked if she is in pain.
--- NOTE | 2020-06-20 11:00 | NUR ---
PLAN OF CARE DISCUSSED WITH DR MCFADDEN Notified provider that furosemide was given and there was no increase in urine output. Notified provider about difficulty with sedation and that pt was briefly on neosynephrine. Discussed potassium replacement with provider. Plan for PICC line placement.
--- NOTE | 2020-06-20 12:00 | NUR ---
DR ROMERO IN TO SEE PATIENT Provider states no additional endoscopy plans.
[2020-06-20 15:17] LABS: Hematocrit 26.4 % (33.0-51.0); Hemoglobin 9.4 g/dL (11.5-16.0)
[2020-06-20 15:31] LABS: International Normalized Ratio 1.74
--- NOTE | 2020-06-20 16:00 | NUR ---
Discussed [address] Obregon. Plan to give more IV potassium. Provider aware of increased PT/INR. Plan to notify Dr Valladares and inquire if he wants blood products given.
--- NOTE | 2020-06-20 17:00 | NUR ---
Pt has not yet gone to optical laboratory manager. Provider aware of PT/INR and platelet count. Provider does not want FFP or platelets administered pre procedure.
--- NOTE | 2020-06-20 17:58 | NUR ---
SUMMARY At this time, pt is sedated with 60 mcg/kg/min propofol. Pt is awake, pulling on restraints and moving legs to edge of bed if she does not get IV push ativan/fentanyl. At this time, pt opens eyes to verbal stimlus but appears comfortable and closes eyes after a few seconds. 7.5 cm ETT remains 20 cm ATT. Ventilator settings AC 16/380/5/35%. SpO2 90% or greater. SR per monitor. Requiring 120 mcg/min neosynephrine to maintain adequate BP- Dr Obregon aware. 53 mL of coffee-colored, yellow-staining urine output to hernandez catheter. Rectal tube placed for management of dark watery stool. 400 mL of bowel output since tube was placed. New PICC line to [id number] with 5 cm exposed. Dressing C/D/I. Plans for pt to go to chemical lab technician for liver biopsy. Will continue to closely monitor until care handoff and bedside report with oncoming RN.
[2020-06-20 21:24] LABS: Hematocrit 27.7 % (33.0-51.0); Hemoglobin 9.8 g/dL (11.5-16.0)
[2020-06-21 02:58] LABS: Hematocrit 28.2 % (33.0-51.0); Mean Corpuscular HGB 31.5 pg (26.0-34.0); Mean Corpuscular HGB Conc 35.5 g/dL (31.5-36.5); Mean Corpuscular Volume 89 fL (80-100); Mean Platelet Volume 9.2 fL (9.1-12.4); NRBC ABSOLUTE 0.03 K/mm3 (0.00-0.02); NRBC Auto 0.2 /100 WBC (0.0-0.2); Platelet Count 153 K/mm3 (150-400); RDW Coefficient Variation 18.8 % (11.7-14.2); RDW Standard Deviation 48.5 fL (35.1-46.3); Red Blood Cell Count 3.17 M/mm3 (3.80-5.20); White Blood Cell Count 16.05 K/mm3 (4.00-11.30)
[2020-06-21 03:13] LABS: International Normalized Ratio 1.7; Prothrombin Time Results 17.7 Sec (9.7-11.5)
[2020-06-21 03:16] LABS: Albumin, Blood 1.9 g/dL (3.4-5.0); Albumin/Globulin Ratio 0.9 (0.8-1.8); BAND PERCENT MAN 7 % (0-8); BASOPHILS PERCENT MAN 0 % (0-2); Bilirubin, Total 17.9 mg/dL (0.1-1.0); Bun/Creatinine Ratio 10.2 (12.0-20.0); Calcium, Blood 7.4 mg/dL (8.5-10.1); Creatinine, Blood 1.57 mg/dL (0.40-1.00); EOSINOPHILS ABSOLUTE MAN 0.16 K/mm3 (0.00-0.68); EOSINOPHILS PERCENT MAN 1 % (0-6); Globulin, Blood 2.2 g/dL (2.2-4.0); LYMPHOCYTES ABSOLUTE MAN 1.44 K/mm3 (0.84-5.20); LYMPHOCYTES PERCENT MAN 9 % (21-46); METAMYELOCYTE ABSOLUTE MAN 0.48 K/mm3 (0.00-0.00); METAMYELOCYTE PERCENT MAN 3 % (0-0); MONOCYTES PERCENT MAN 10 % (4-13); MYELOCYTE ABSOLUTE MAN 0.32 K/mm3 (0.00-0.00); MYELOCYTE PERCENT MAN 2 % (0-0); Magnesium, Blood 1.2 mg/dL (1.6-2.4); NEUTROPHILS ABSOLUTE MAN 12.03 K/mm3 (1.96-9.15); Phosphorus, Blood 3.3 mg/dL (2.5-4.9); Potassium, Blood 3.4 mmol/L (3.5-5.5); SEG NEUTROPHILS PERCENT MAN 68 % (41-73); TOTAL CELLS COUNTED 100; Total Protein, Blood 4.1 g/dL (6.4-8.2)
[2020-06-21 06:08] LABS: HSV-1 DNA Negative (Negative); HSV-2 DNA Negative (Negative)
--- NOTE | 2020-06-21 07:15 | NUR ---
Assumed care of pt at 0700. Bedside report recevied from Rna STOVALL. Pt sedated with propofol at 65 mcg/kg/min. Responsive to painful stimulus. Pt appers comfortable at this time. Phenylephrine at 200 mcg/min. BP stable. SR per monitor. Pt has two dressed venous sites - right IJ and right femoral. Dressings C/D/I. Scant dried drainage to each site. No hematoma. Banks catheter draining coffee-colored urine. Urine output improved in comparison to previous day shift. Rectal tube draining brown liquid.
--- NOTE | 2020-06-21 07:21 | NUR ---
SHIFT SUMMARY PATIENT STARTED OFF THE FLOOR FROM 18:55 - 20:40, MONITORED BY MYSELF AND BACK TENDER PERSONAL, NO ABNORMAL VITALS TO NOTE. PT. TOLERATED PROCEDURE QUITE WELL, DID HAVE TO INCREASE PROPOFOL WHILE LAYING FLAT. AFTER RETURNING TO UNIT HAD RATHER UNEVENTFUL NIGHT, MADE SURE TO TURN FREQUENTLY . ELECTROLYTE REPLACEMENT ORDERED AND HANGING. ASSESSMENT IS CHARTED. VSS. WILL CONTINUE TO MONITOR.
--- NOTE | 2020-06-21 08:18 | NUR ---
Dr Lyles placed call to unit. Discussed pt's blood pressure. Discussed quality of rectal output and absence of vomiting. Provider states he will be doing an endoscopy around [id number] and would like for pt to remain intubated until after this time.
--- NOTE | 2020-06-21 11:13 | NUR ---
in icu 8 preparing room and patient for endo procedure with dr garcia
--- NOTE | 2020-06-21 11:45 | NUR ---
Fentanyl and ativan given as pt is agitated and currently being prepared for in-room EGD to assess Sia-Hyde tear. High peak pressures on ventilator and RR 36.
--- NOTE | 2020-06-21 11:58 | NUR ---
EGD COMPLETE Provider states to continue protonix drip. Provider states still no NG/OG tube permitted.
--- NOTE | 2020-06-21 12:01 | NUR ---
06/21/20 1201 Jv Burr IN ICU 8 FOR PROCEDURE PATIENT ON PROPAFOL GTT MONITORED BY COMMERCIAL DEVELOPMENT MANAGER DURING PROCEDURE.Bite Block Placed History, Chart, Medications and Allergies reviewed before start of procedure. MONITOR INTACT WITH CONTINUOUS PULSE OXIMETRY AND INTERMITTENT BP. O2 VIA N/C INTACT THROUGHOUT SEDATION/PROCEDURE. PATIENT INTUBATED THROUGHOUT PROCEDURE NO ISSUES
--- NOTE | 2020-06-21 13:00 | NUR ---
Having difficulty ventilating patient. High peak pressures and SpO2 low 80s with previous setting. 4 mg IV push versed given per VO from Dr Wagner to assess if sedation is causing this problem. This did not work. Stat chest xray obtained. Per orders from Dr Lyles and Dr Wagner, OG tube inserted to help decompress stomach as ventilation issues began after EGD. OG tube inserted by chargeback analyst w/o difficulty. Placement verified with ausculation of air and return of gastric contents. Placed to LIS. Drainage is clear with yellow-staining.
[2020-06-21 13:10] LABS: Hematocrit 28.6 % (33.0-51.0)
[2020-06-21 13:33] LABS: Creatinine, Blood 1.6 mg/dL (0.40-1.00); Potassium, Blood 3.9 mmol/L (3.5-5.5)
[2020-06-21 17:46] LABS: Hematocrit 23.6 % (33.0-51.0); Hemoglobin 8.4 g/dL (11.5-16.0)
--- NOTE | 2020-06-21 18:45 | NUR ---
Summary At this time, pt is sedated with propofol at 50 mcg/kg/min. Versed at 1 mg/hr. Levophed at 6 mcg/min. Vasopressin on. Protonix drip and vasopressin drip per orders. BP stable. SR per monitor. Ventilator settings AC 16/380/12/50%. SpO2 90% or greater. OG tube in place- low intermittent suction with Bile-colored drainage. Pt had bloody secretions suctioned from mouth at time of last reposition, Dr Wagner aware. Will continue to monitor H&H. Improved urine output compared with previous day shift. Excellent urine output after lasix given. Output per rectal tube is yellow/brown and watery. Will continue to closely monitor until care handoff and bedside report with oncoming RN.
[2020-06-21 20:52] LABS: Hematocrit 22.1 % (33.0-51.0)
[2020-06-22 00:47] LABS: Hematocrit 21.4 % (33.0-51.0); Hemoglobin 7.5 g/dL (11.5-16.0)
[2020-06-22 04:57] LABS: BASOPHILS ABSOLUTE AUTO 0.03 K/mm3 (0.00-0.23); BASOPHILS PERCENT AUTO 1 % (0-2); EOSINOPHILS ABSOLUTE AUTO 0.04 K/mm3 (0.00-0.68); EOSINOPHILS PERCENT AUTO 1 % (0-6); Hematocrit 21.9 % (33.0-51.0); Hemoglobin 7.7 g/dL (11.5-16.0); Mean Corpuscular HGB 32.4 pg (26.0-34.0); Mean Corpuscular HGB Conc 35.2 g/dL (31.5-36.5); Mean Corpuscular Volume 92 fL (80-100); Mean Platelet Volume 9.6 fL (9.1-12.4); Platelet Count 98 K/mm3 (150-400); RDW Coefficient Variation 19.9 % (11.7-14.2); RDW Standard Deviation 52.5 fL (35.1-46.3); Red Blood Cell Count 2.38 M/mm3 (3.80-5.20); White Blood Cell Count 5.46 K/mm3 (4.00-11.30)
[2020-06-22 05:06] LABS: IMMATURE GRAN PERCENT AUTO 2 % (0-1); LYMPHOCYTES PERCENT AUTO 24 % (21-46); MONOCYTES ABSOLUTE AUTO 0.46 K/mm3 (0.16-1.47); MONOCYTES PERCENT AUTO 8 % (4-13); NEUTROPHILS ABSOLUTE AUTO 3.53 K/mm3 (1.96-9.15); NEUTROPHILS PERCENT AUTO 65 % (41-73)
[2020-06-22 05:13] LABS: International Normalized Ratio 1.76; Prothrombin Time Results 18.2 Sec (9.7-11.5)
[2020-06-22 05:15] LABS: Albumin, Blood 2.5 g/dL (3.4-5.0); Anion Gap 11 mmol/L (6-16); Blood Urea Nitrogen 16 mg/dL (8-24); Bun/Creatinine Ratio 10.1 (12.0-20.0); CO2, Blood 18 mmol/L (21-32); Calcium, Blood 7.6 mg/dL (8.5-10.1); Chloride, Blood 111 mmol/L (98-108); Creatinine, Blood 1.59 mg/dL (0.40-1.00); Glomerular Filtration Rate 40 (60-); Glucose, Blood 108 mg/dL (70-99); Phosphorus, Blood 4.4 mg/dL (2.5-4.9); Potassium, Blood 3.6 mmol/L (3.5-5.5); Sodium, Blood 140 mmol/L (136-145)
--- NOTE | 2020-06-22 05:57 | NUR ---
SHIFT SUMMARY PATIENT SLEPT WELL THRU NIGHT. FOR SPONTANEOUS BREATHING TRIAL PLACED PROPOFOL ON STAND-BY, IS STILL OFF AT THIS TIME. NO ACUTE CHANGES OVERNIGHT. ASSESSMENT IS CHARTED. VSS. WILL CONTINUE TO MONITOR.
--- NOTE | 2020-06-22 07:15 | NUR ---
Assumed care of pt at 0700. Bedside report received from Ran STOVALL. At time of report, propofol was off and versed was at 1 mg/hr. Pt began to awake, moving all extremities. Pt began coughing and fighting vent. This RN asked "Can you open your eyes?" and pt nodded head to indicate no. She also did this when asked to recording studio set up worker this RN's fingers. Propofol restarted at 50 mcg/kg/min. Versed increased to 2 mg/hr. Ventilator settings AC 14/380/12/40%. SpO2 90% or greater. Moderate amount of clear secretions suctioned from ETT. OG tube to LIS with bile drainage. Rectal tube in place with clear, yellow output. Levophed at 6 mcg/min. Vasopressin off.
[2020-06-22 09:28] LABS: Hematocrit 22.9 % (33.0-51.0); Hemoglobin 7.7 g/dL (11.5-16.0)
--- NOTE | 2020-06-22 12:05 | NUR ---
Telphone given to pt's spouse, Jones. States he is unsure if he will be able to visit today.
[2020-06-22 16:34] LABS: Hematocrit 20.6 % (33.0-51.0)
--- NOTE | 2020-06-22 16:39 | NUR ---
FUROSEMIDE DRIP Dr Wagner ordered furosemide drip for patient with order to titrate for urine output greater than 125 mL per hour, maximum rate of 80 mg/hr. Provider stated he did not want a bolus dose of furosemide prior to starting drip. This RN reported hourly urine output and titration to Dr Wagner. At 1546, furosemide drip turned off per order from Dr Wagner due to failure to achieve goal urine output (maximum output achieved was 40 mL in an hour). Drip remains on JUL as provider plans to try furosemide drip again tomorrow.
[2020-06-22 16:50] LABS: Bun/Creatinine Ratio 9.6 (12.0-20.0); Calcium, Blood 8.1 mg/dL (8.5-10.1); Creatinine, Blood 1.67 mg/dL (0.40-1.00); Potassium, Blood 3.4 mmol/L (3.5-5.5)
--- NOTE | 2020-06-22 17:30 | NUR ---
Discussed lab results with provider. Provider to enter orders. Plan to transfuse 1 unit PRBCs. No signs of bleeding from OG tube or rectal tube. Provider states to recheck potassium in AM, no replacement at this time.
--- NOTE | 2020-06-22 18:34 | NUR ---
SUMMARY Pt is receiving propofol at 40 mcg/kg/min and versed at 2 mg/hr. Vasopressin discontinued. Levophed off. Midodrine as ordered per OG tube. OG tube clamped immediately following med administration. SR per monitor. BP stable. Ventilator settings AC 16/380/8/30%. SpO2 90% or greater. Furosemide drip off. Will continue to closely monitor until care handoff and bedside report with oncoming RN.
[2020-06-23 00:44] LABS: Hematocrit 22.7 % (33.0-51.0); Hemoglobin 7.7 g/dL (11.5-16.0)
--- NOTE | 2020-06-23 06:17 | NUR ---
SHIFT SUMMARY PATIENT SLEPT WELL THROOUGH NIGHT. HAVE DECREASED PROPOFOL TO 10 MCG/KG/HR, DOES OCASSIONALLY HAVE MOMENTS WHERE SHE WILL LIGHTLY SHUFFLE HIPS IN BED. HAS HAD 900 ML OUTPUT VIA OG TUBE. DID HAVE A SCANT BLEED FROM A HEMORRHOID DURING BED BATH, AM AWAITING LAB RESULTS AT THIS TIME. ASSESSMENT IS CHARTED. VSS. WILL CONTINUE TO MONITOR.
[2020-06-23 06:21] LABS: BASOPHILS ABSOLUTE AUTO 0.04 K/mm3 (0.00-0.23); BASOPHILS PERCENT AUTO 1 % (0-2); EOSINOPHILS ABSOLUTE AUTO 0.04 K/mm3 (0.00-0.68); EOSINOPHILS PERCENT AUTO 1 % (0-6); Hematocrit 23.7 % (33.0-51.0); Hemoglobin 8.2 g/dL (11.5-16.0); IMMATURE GRAN ABSOLUTE AUTO 0.07 K/mm3 (0.00-0.10); IMMATURE GRAN PERCENT AUTO 1 % (0-1); LYMPHOCYTES ABSOLUTE AUTO 0.78 K/mm3 (0.84-5.20); LYMPHOCYTES PERCENT AUTO 13 % (21-46); MONOCYTES ABSOLUTE AUTO 0.47 K/mm3 (0.16-1.47); MONOCYTES PERCENT AUTO 8 % (4-13); Mean Corpuscular HGB Conc 34.6 g/dL (31.5-36.5); Mean Corpuscular Volume 93 fL (80-100); Mean Platelet Volume 9.4 fL (9.1-12.4); NEUTROPHILS ABSOLUTE AUTO 4.48 K/mm3 (1.96-9.15); NEUTROPHILS PERCENT AUTO 76 % (41-73); Platelet Count 111 K/mm3 (150-400); RDW Coefficient Variation 19.8 % (11.7-14.2); RDW Standard Deviation 51.3 fL (35.1-46.3); Red Blood Cell Count 2.56 M/mm3 (3.80-5.20); White Blood Cell Count 5.88 K/mm3 (4.00-11.30)
[2020-06-23 06:33] LABS: International Normalized Ratio 1.81; Prothrombin Time Results 18.7 Sec (9.7-11.5)
[2020-06-23 06:34] LABS: Albumin, Blood 3.1 g/dL (3.4-5.0); Anion Gap 11 mmol/L (6-16); Blood Urea Nitrogen 16 mg/dL (8-24); Bun/Creatinine Ratio 9.5 (12.0-20.0); CO2, Blood 19 mmol/L (21-32); Calcium, Blood 8.1 mg/dL (8.5-10.1); Chloride, Blood 111 mmol/L (98-108); Creatinine, Blood 1.69 mg/dL (0.40-1.00); Glomerular Filtration Rate 37 (60-); Glucose, Blood 84 mg/dL (70-99); Phosphorus, Blood 4.6 mg/dL (2.5-4.9); Potassium, Blood 3.3 mmol/L (3.5-5.5); Sodium, Blood 141 mmol/L (136-145)
--- NOTE | 2020-06-23 08:30 | NUR ---
ASSESSMENT- PT SEDATED WITH PROPOFOL AT 10 MCG/KG/MIN AND VERSED GTT AT 2 MG/MIN. NO RESPONSE TO VERBAL OR PAINFUL STIMULUS. PERRL, SCLERAL EDEMA PRESENT, EYES ICTERIC AND TISSUE RED. ORALLY INTUBATED, TUBE SECURE, TOLERATING VENT SETTINGS. LUNGS CLEAR, DIMINISHED BILATERALLY, ESPECIALLY RIGHT LOWER BASE. APICAL REGULAR, NSR. BP STABLE 90-100'S. OGT TO LIS WITH YELLOW CLEAR DRAINAGE, 400 CC ALREADY SINCE 0600. ABDOMEN LARGE BUT SOFT. UO LOW VIA GANN, ICTERIC COLOR. ANASARCA PRESENT 3+. RECTAL TUBE WITH CLEAR BROWN DRAINAGE. LEFT ARM PICC LINE WITH NS TKO, PROTONIX GTT, SANDOSTATIN AT 50 MCG/HR. POTASSIUM 3.3, REPLACEMENT STARTED. RAC IV INTACT. BILATERAL WRIST RESTRAINTS FOR PREVENTION OF SELF-EXTUBATION. REPOSITIONED.
--- NOTE | 2020-06-23 08:59 | NUR ---
DR. BARTON HERE-UPDATED AND ASSESSED PT. ORDERS FOR CPAP TRIAL. VERSED OFF, PROPOFOL ON HOLD
--- NOTE | 2020-06-23 10:27 | NUR ---
REPOSITIONED. TOLERATING CPAP, TIDAL VOLUMES 250-275. REMAINS SEDATED-VERSED AND PROPOFOL OFF.
[2020-06-23 12:05] LABS: Hematocrit 24.4 % (33.0-51.0); Hemoglobin 8.2 g/dL (11.5-16.0)
--- NOTE | 2020-06-23 12:13 | NUR ---
REMAINS SEDATED, ABLE TO MOVE HEAD. TOLERATING PRESSURE SUPPORT. REPOSITIONED. K REPLACEMENT INFUSING. LABS SENT
--- NOTE | 2020-06-23 14:30 | NUR ---
VSS. REPOSITIONED. PT'S BROTHER HERE-UPDATED. PT'S CALLED-UPDATED.
--- NOTE | 2020-06-23 16:10 | NUR ---
SEE ASSESSMENT. MOVING HEAD, UNCOMFORTABLE, COUGHING. PROPOFOL RESTARTED.
--- NOTE | 2020-06-23 18:00 | NUR ---
DR. BARTON HERE-UPDATED. UO LOW, CONTINUE TO MONITOR. NSR. SBP 90-100'S. LABS DRAWN. LINES INTACT. NS TKO. PROPOFOL AT 10 MCG/KG/MIN FOR SEDATION. TIDAL VOLUMES 250-300'S. PROTONIX AND SANDOSTATIN GTTS.
[2020-06-23 18:11] LABS: Hematocrit 24.2 % (33.0-51.0); Hemoglobin 8.2 g/dL (11.5-16.0)
[2020-06-23 18:38] LABS: Albumin, Blood 2.9 g/dL (3.4-5.0); Anion Gap 9 mmol/L (6-16); Blood Urea Nitrogen 17 mg/dL (8-24); Bun/Creatinine Ratio 10.1 (12.0-20.0); CO2, Blood 17 mmol/L (21-32); Calcium, Blood 8.1 mg/dL (8.5-10.1); Chloride, Blood 113 mmol/L (98-108); Creatinine, Blood 1.68 mg/dL (0.40-1.00); Glomerular Filtration Rate 38 (60-); Glucose, Blood 85 mg/dL (70-99); Phosphorus, Blood 4.6 mg/dL (2.5-4.9); Potassium, Blood 3.6 mmol/L (3.5-5.5); Sodium, Blood 139 mmol/L (136-145)
--- NOTE | 2020-06-23 18:52 | NUR ---
H/H STABLE. NO S/S BLEEDING.
[2020-06-24 00:30] LABS: Hematocrit 23.8 % (33.0-51.0); Hemoglobin 8.2 g/dL (11.5-16.0)
[2020-06-24 06:34] LABS: BASOPHILS ABSOLUTE AUTO 0.05 K/mm3 (0.00-0.23); BASOPHILS PERCENT AUTO 1 % (0-2); EOSINOPHILS ABSOLUTE AUTO 0.04 K/mm3 (0.00-0.68); EOSINOPHILS PERCENT AUTO 1 % (0-6); Hematocrit 23.9 % (33.0-51.0); Hemoglobin 8.4 g/dL (11.5-16.0); IMMATURE GRAN ABSOLUTE AUTO 0.04 K/mm3 (0.00-0.10); IMMATURE GRAN PERCENT AUTO 1 % (0-1); LYMPHOCYTES ABSOLUTE AUTO 0.63 K/mm3 (0.84-5.20); LYMPHOCYTES PERCENT AUTO 10 % (21-46); MONOCYTES ABSOLUTE AUTO 0.56 K/mm3 (0.16-1.47); MONOCYTES PERCENT AUTO 9 % (4-13); Mean Corpuscular HGB 32.6 pg (26.0-34.0); Mean Corpuscular HGB Conc 35.1 g/dL (31.5-36.5); Mean Corpuscular Volume 93 fL (80-100); Mean Platelet Volume 9.6 fL (9.1-12.4); NEUTROPHILS ABSOLUTE AUTO 4.84 K/mm3 (1.96-9.15); NEUTROPHILS PERCENT AUTO 79 % (41-73); Platelet Count 127 K/mm3 (150-400); RDW Coefficient Variation 20.7 % (11.7-14.2); RDW Standard Deviation 50.4 fL (35.1-46.3); Red Blood Cell Count 2.58 M/mm3 (3.80-5.20); White Blood Cell Count 6.16 K/mm3 (4.00-11.30)
[2020-06-24 06:39] LABS: Albumin, Blood 2.7 g/dL (3.4-5.0); Anion Gap 12 mmol/L (6-16); Blood Urea Nitrogen 17 mg/dL (8-24); Bun/Creatinine Ratio 11.4 (12.0-20.0); CO2, Blood 19 mmol/L (21-32); Calcium, Blood 8.4 mg/dL (8.5-10.1); Chloride, Blood 112 mmol/L (98-108); Creatinine, Blood 1.49 mg/dL (0.40-1.00); Glomerular Filtration Rate 43 (60-); Glucose, Blood 82 mg/dL (70-99); Phosphorus, Blood 4.1 mg/dL (2.5-4.9); Potassium, Blood 3.4 mmol/L (3.5-5.5); Sodium, Blood 143 mmol/L (136-145)
--- NOTE | 2020-06-24 06:47 | NUR ---
SHIFT SUMMARY PT. SLEPT WELL THROUGH NIGHT. PERFORMED SPONTANEOUS BREATHING TRIAL THIS AM, PT. TOLERATED FOR AN HOUR. WHILE SEDATION WAS OFF, PT. NOT FOLLOWING DIRECTIONS, HOWEVER GRIMACING, WITHDRAWING EXTREMETIES, SEEMINGLY ATTEMPTING TO REACH AT ETT. NO ACUTE CHANGES OVERNIGHT. ASSESSMENT IS CHARTED. VSS. WILL CONTINUE TO MONITOR.
[2020-06-24 06:54] LABS: International Normalized Ratio 1.96; Prothrombin Time Results 20.2 Sec (9.7-11.5)
--- NOTE | 2020-06-24 08:15 | NUR ---
ASSESSMENT- PT RESTLESS IN BED, PROPOFOLAT 10 MCG/KG/MIN INCREASED TO 20 WITH IMPROVEMENT. HARTMAN WEAKLY. NO RESPONSE TO COMMANDS. PERRL. ICTERIC. ORALLY INTUBATED, TOLERATING VENT SETTINGS. LUNGS CLEAR, DIMINISHED BASES, BRONCHIAL SOUNDS LEFT BASE. APICAL REGULAR, SBP 90-100'S. ABDOMEN DISTENDED, FIRM, LARGE, ABSENT BOWEL SOUNDS. OGT WITH LARGE AMOUNT CLEAR YELLOW DRAINAGE TO LIS. UO LOW VIA GANN. ANASARCA. RECTAL TUBE INTACT WITH SCANT CLEAR BROWN DRAINAGE. NO S/S BLEEDING. LEFT ARM PICC DI WITH NS TKO, POTASSIUM REPLACEMENT STARTED, PROTONIX GTT AT 10 CC/HR AND SANDOSTATIN AT 50 MCG/HR. RIGHT AC PIV INTACT. BILATERAL WRIST RESTRAINTS FOR SAFETY. REPOSITIONED
--- NOTE | 2020-06-24 10:44 | NUR ---
PT'S CALLED-UPDATED. DR. LACEY AND DR. JOHNSON HERE-SEE ORDERS. UPDATED WITH OGT DRAINAGE, LOW UO. PLANS FOR CLINIMIX
[2020-06-24 12:19] LABS: Hematocrit 24.6 % (33.0-51.0); Hemoglobin 8.2 g/dL (11.5-16.0)
--- NOTE | 2020-06-24 12:25 | NUR ---
PROPOFOL OFF. SEE ASSESSMENT. PLANS FOR WEAN TRIAL WHEN PT AWAKE AND ABLE TO FOLLOW DIRECTIONS.
[2020-06-24 12:46] LABS: Albumin, Blood 2.6 g/dL (3.4-5.0); Albumin/Globulin Ratio 1.4 (0.8-1.8); Bilirubin, Direct 14.5 mg/dL (0.0-0.3); Bilirubin, Indirect 4.5 mg/dL (0.1-0.7); Globulin, Blood 1.9 g/dL (2.2-4.0); Total Protein, Blood 4.5 g/dL (6.4-8.2)
--- NOTE | 2020-06-24 14:21 | NUR ---
VALUABLES- PT'S HERE-UPDATED, QUESTIONS ANSWERED. GIVEN [place]ED[place] RING.
--- NOTE | 2020-06-24 15:05 | NUR ---
PT'S HERE-SPOKE WITH DR. JOHNSON ON PHONE. DENIES FUTHER QUESTIONS
[2020-06-24 18:13] LABS: Hemoglobin 8.5 g/dL (11.5-16.0)
--- NOTE | 2020-06-24 18:34 | NUR ---
PT REMAINS SEDATED, NO RESPONSE TO VERBAL COMMANDS. DOES MOVE TO NOXIOUS STIMULUS-SUCTIONING. DOES GRIMACE, MOVES HEAD. TOLERATING CPAP WITH TIDAL VOLUMES 250-325. BP STABLE. OGT STILL WITH LARGE AMOUNT OUTPUT. DID GIVE MIDIDRINE PER ORDERS AND TUBE CLAMPLED FOR HOUR AFTER. UO STABLE. REMAINS EDEMATOUS. ABDOMEN LARGE, FIRM, ABSENT BOWEL SOUNDS. LAB SENT. NO S/S BLEEDING. PICC INTACT.
[2020-06-25 04:15] LABS: PCO2 Arterial 27.5 mmHg (35-45); PO2 Arterial 88.2 mmHg (80-100); pH Blood Arterial 7.42 (7.35-7.45)
[2020-06-25 04:31] LABS: BASOPHILS ABSOLUTE AUTO 0.04 K/mm3 (0.00-0.23); BASOPHILS PERCENT AUTO 1 % (0-2); EOSINOPHILS ABSOLUTE AUTO 0.06 K/mm3 (0.00-0.68); EOSINOPHILS PERCENT AUTO 1 % (0-6); Hematocrit 23.3 % (33.0-51.0); IMMATURE GRAN ABSOLUTE AUTO 0.09 K/mm3 (0.00-0.10); IMMATURE GRAN PERCENT AUTO 1 % (0-1); LYMPHOCYTES ABSOLUTE AUTO 0.72 K/mm3 (0.84-5.20); LYMPHOCYTES PERCENT AUTO 10 % (21-46); MONOCYTES ABSOLUTE AUTO 0.57 K/mm3 (0.16-1.47); MONOCYTES PERCENT AUTO 8 % (4-13); Mean Corpuscular HGB 32.1 pg (26.0-34.0); Mean Corpuscular HGB Conc 34.3 g/dL (31.5-36.5); Mean Corpuscular Volume 94 fL (80-100); Mean Platelet Volume 9.2 fL (9.1-12.4); NEUTROPHILS ABSOLUTE AUTO 5.89 K/mm3 (1.96-9.15); NEUTROPHILS PERCENT AUTO 80 % (41-73); Platelet Count 120 K/mm3 (150-400); RDW Coefficient Variation 21.4 % (11.7-14.2); RDW Standard Deviation 53.4 fL (35.1-46.3); Red Blood Cell Count 2.49 M/mm3 (3.80-5.20); White Blood Cell Count 7.37 K/mm3 (4.00-11.30)
[2020-06-25 05:00] LABS: Alanine Aminotransfer (ALT/SGP 17 U/L (12-78); Albumin, Blood 2.5 g/dL (3.4-5.0); Albumin/Globulin Ratio 1.2 (0.8-1.8); Alk Phos 63 U/L (50-136); Anion Gap 11 mmol/L (6-16); Aspartate Aminotrans (AST/SGOT 59 U/L (12-37); Bilirubin, Total 21.7 mg/dL (0.1-1.0); Blood Urea Nitrogen 21 mg/dL (8-24); Bun/Creatinine Ratio 17.8 (12.0-20.0); CO2, Blood 19 mmol/L (21-32); Calcium, Blood 8.5 mg/dL (8.5-10.1); Chloride, Blood 113 mmol/L (98-108); Creatinine, Blood 1.18 mg/dL (0.40-1.00); Glomerular Filtration Rate 57 (60-); Glucose, Blood 121 mg/dL (70-99); Magnesium, Blood 1.7 mg/dL (1.6-2.4); Phosphorus, Blood 3.1 mg/dL (2.5-4.9); Potassium, Blood 3.7 mmol/L (3.5-5.5); Sodium, Blood 143 mmol/L (136-145); Total Protein, Blood 4.5 g/dL (6.4-8.2); Triglycerides 232 mg/dL (30-140)
--- NOTE | 2020-06-25 06:41 | NUR ---
SHIFT SUMMARY PATIENT SLEPT WELL THROUGH NIGHT. EVENTUALLY TURNED PROPOFOL BACK ON FOR VENTILATOR TOLERANCE, WAS COUGHING/GAGGING ON ETT, HR UP IN 120s, BETTER ON 10 OF PROPOFOL. HAD LOTS MORE STOOL THAN PREVIOUS NIGHTS. ASSESSMENT IS CHARTED. VSS. WILL CONTINUE TO MONITOR.
--- NOTE | 2020-06-25 11:56 | NUR ---
AM NOTE... ASSUMED CARE OF PT AT 0715. PT IS INTUBATED AND SEDATED. PT IS ON THE VENT WITH PRESSURE SUPPORT OF 10/8 AND 45%, PT'S O2 SATS >95%. RR 14-18 EVEN AND UNLABORED. L/S COARSE T/O, PT'S ET TUBE IS 7.5 AND 19.0 AT THE TEETH. PT IS IN NSR IN THE 70'S-90'S. BP STABLE WITH MAPS>65. PT HAS ANASCARA, 2+ PITTING EDEMA TO HER BLE AND 2+ TO HER BUE. PT'S SKIN IS VERY JAUNDICED WELL HER SCLERA. PT WAS ON PROPOFOL AT 10MCG, THIS WAS PUT ON STANDBY AT 0818 BY THIS RN. PT WAS GRIMACING AND TURNING HER HEAD WITH ORAL CARE AND REPOSITIONING BUT NOT FOLLOWING COMMANDS. BT PRESENT BUT VERY HYPOACTIVE, ABD HAS SEVERE DISTENTION IS FIRM TO PALP. RECTAL TUBE IS PATENT AND DRAINING CLEAR [place] BROWN LIQUID STOOLS TO GRAVITY. PT HAS OG TUBE IN PLACE THAT IS RUNNING TO SUCTION AND IS DRAINING COPIOUS AMOUNTS OF CLEAR YELLOW/GREENISH BILE LIKE LIQUID. PT'S GANN IS PATENT AND DRAINING DARK BROWN URINE TO GRAVITY. ET SUCTION THIS AM HAD MODERATE AMOUNTS OF BRIGHT YELLOW SECRETIONS, RT REPORTED THIS FINDING WELL. THIS WAS REPORTED TO DR. LACEY. PER DR. LACEY THE ET TUBE NEEDED TO GO DOWN, RT WAS IN THE ROOM AND MOVED THE ET TUBE FROM 19.0 TO 24.0 AT THE TEETH. CHEST XRAY CONFIRMED GOOD PLACEMENT PER DR. LACEY, PT'S SATS >90% ON PREVIOUS SETTINGS OF PS: 10/8 AND 45%. PT'S CALLED AND WAS UPDATED ON PT'S CURRENT CONDITION AND THE PLAN OF CARE. WILL CONTINUE TO MONITOR.
[2020-06-25 13:09] LABS: ANA DIRECT Negative (Negative); ANTIMYELOPEROXIDASE (MPO) ABS <9.0 U/mL (0.0-9.0); ANTIPROTEINASE 3 (PR-3) ABS <3.5 U/mL (0.0-3.5); ATYPICAL PANCA <1:20 titer (Neg:<1:20); CYTOPLASMIC (C-ANCA) <1:20 titer (Neg:<1:20); PERINUCLEAR (P-ANCA) <1:20 titer (Neg:<1:20)
[2020-06-25 15:49] LABS: Automated BF RBC Count 0.006 M/mm3 (0-0); Automated BF WBC Count 0.058 K/mm3 (0-999); Body Fluid WBC Count 58 /mm3 (0-999); RBC Count, Body Fluid 6000 /mm3 (0-0)
[2020-06-25 16:13] LABS: Appearance, Body Fluid Hazy (Clear); Color, Body Fluid Amber (None-Yellow); Total Cell Count, Body Fluid 100
[2020-06-25 17:33] LABS: Albumin, Body Fluid 0.8 g/dL; Glucose, Body Fluid 116 mg/dL; Lactate Dehydrogenase, Body Fl 55 U/L; Protein, Body Fluid 1.3 g/dL
--- NOTE | 2020-06-25 18:39 | NUR ---
SHIFT SUMMARY... NO ACUTE NEGATIVE CHANGES NOTED THIS SHIFT. PT'S VS HAVE BEEN STABLE T/O SHIFT. PT CONTINUES TO BE SEDATED AND INTUBATED ON PRESSURE SUPPORT WITH NO CHANGES TO THE SETTINGS. PT HAD A PERACENTISIS TODAY THAT TOOK OFF 1.6L OF DARK BROWN FLUID THAT WAS SENT TO THE LAB. PT'S ET TUBE WAS DEFLATED AND REPOSITIONED BY RT JERRI PER DR. LACEY'S ORDERS, PT TOLERATED THIS WELL. PT'S RECTAL TUBE CONTINUES TO BE PATENT AND DRAIN CLEAR BROWN LIQUID STOOLS TO GRAVITY. GANN CONTINUES TO DRAIN DARK BROWN URINE TO GRAVITY. PT'S OG TUBE CONTINUES TO RUN TO SUCTION PER ORDERS, THERE WAS 2100MLS OF GASTRIC FLUID REMOVED VIA THE OG TUBE THIS SHIFT. PICC LINE DRESSING WAS CHANGED D/T BLOOD COMING FROM THE INSERTION SITE. THE PT HAS NOT BEEN ON PROPOFOL SINCE 0818 THIS AM, PT STILL DOES NOT FOLLOW COMMANDS OR DIRECTIONS, SHE IS STARTING TO PULL MORE AGAINST HER RESTRAINTS AND FLUTTER HER EYELIDS AND PULL AWAY FROM PAIN. PT'S HAS BEEN UPDATED SEVERAL TIMES T/O THIS SHIFT, HE CONTINUES TO ASK "IS SHE AWAKE YET?" HE WAS EDUCATED ON HER CONDITION AND POSSIBLE REASONS FOR HER NOT BEING FULLY AWAKE AT THIS TIME. PT THEN CALLED THE MOTOR INSPECTION MECHANIC DEMANDING THAT SHE BE TRANSFERRED UP TO [facility]. THIS TRANSFER WAS ATTEMPTED BY DR. LACEY BUT THE TRANSFER WAS NOT ACCEPTED BY [facility]. PT'S WAS NOTIFIED OF THIS. HE VERBALIZED HIS UNDERSTANDING PER DR. LACEY. CALL LIGHT IN REACH WILL CONTINUE TO MONITOR UNTIL REPORT IS GIVEN TO ONCOMING RN.
--- NOTE | 2020-06-25 20:00 | NUR ---
ASSUMED CARE OF PT AT 1915. REPORT RECEIVED AT BEDSIDE. PT PRESENTS IN BED. INTUBATED - PS 10, FIO2 40%, PEEP 8. PT DOES NOT RESPOND TO ANY COMMANDS AT THIS TIME. EYELIDS FLUTTER AT TIMES. WHEN OPENING HER EYELIDS TO CHECK PUPILS, PT DOES NOT PURPOSEFULY TRACK. EYES PERRLA. WILL REVIEW CHART AND PLAN OF CARE FOR THIS PT.
--- NOTE | 2020-06-25 21:56 | NUR ---
PT'S '' HUGO CALLS TO CHECK ON PT. UPDATE GIVEN. HE QUESTIONS IF PT IS AWAKE YET. TEACHING DONE WITH ON ASSESSMENT. ANSWERED ALL QUESTIONS FOR HIM. HE DOES STATE HE IS HAVING DIFFICULTIES WITH HIS BEING SICK AND BEING INTUBATED. ALLOWED FOR HIM TO EXPRESS HIS FEELINGS AND FRUSTRATIONS. VALIDATED THOSE WHERE APPROPRIATE. PT HAS HAD COMPLETE BEDBATH DONE THIS EVENING. WAS ABLE TO SUCTION MODERATE AMOUNT OF CLEAR/YELLOW TINTED SECRETIONS ESPECIALLY WITH TURNS. PERCY/DARK URINE OUTPUT FROM GANN, DARK/BROWN LIQUID STOOL PER DIGNISHIELD. YELLOW CLEAR GASTRIC FLUID PER OGT SUCTIONING. HOLLOW SOUNDS RETURNED FROM ABDOMINAL PERCUSSION ASSESSMENT ALL FOUR QUADRANTS. WILL CONTINUE TO MONITOR PT.
[2020-06-26 04:52] LABS: International Normalized Ratio 1.93; Prothrombin Time Results 19.9 Sec (9.7-11.5)
[2020-06-26 05:22] LABS: BASOPHILS ABSOLUTE AUTO 0.06 K/mm3 (0.00-0.23); BASOPHILS PERCENT AUTO 1 % (0-2); EOSINOPHILS PERCENT AUTO 1 % (0-6); Hematocrit 22.3 % (33.0-51.0); Hemoglobin 7.6 g/dL (11.5-16.0); IMMATURE GRAN ABSOLUTE AUTO 0.09 K/mm3 (0.00-0.10); IMMATURE GRAN PERCENT AUTO 1 % (0-1); LYMPHOCYTES PERCENT AUTO 12 % (21-46); MONOCYTES ABSOLUTE AUTO 0.63 K/mm3 (0.16-1.47); MONOCYTES PERCENT AUTO 7 % (4-13); Mean Corpuscular HGB 32.3 pg (26.0-34.0); Mean Corpuscular HGB Conc 34.1 g/dL (31.5-36.5); Mean Corpuscular Volume 95 fL (80-100); NEUTROPHILS ABSOLUTE AUTO 6.74 K/mm3 (1.96-9.15); NEUTROPHILS PERCENT AUTO 78 % (41-73); Platelet Count 143 K/mm3 (150-400); RDW Coefficient Variation 21.7 % (11.7-14.2); RDW Standard Deviation 59.4 fL (35.1-46.3); Red Blood Cell Count 2.35 M/mm3 (3.80-5.20); White Blood Cell Count 8.62 K/mm3 (4.00-11.30)
--- NOTE | 2020-06-26 05:44 | NUR ---
PT CONTINUES TO HAVE LARGE AMOUNT OF WATERY OUTPUT PER OGT SUCTIONING. 900 ML OUTPUT FROM DIGNISHIELD. PT REMAINS ON PRESSURE SUPPORT. DOES NOT FOLLOW COMMANDS. NO SEDATION. TOLERATES Q 2 HOUR TURNS. HAS MAINTAINED > 90 PERCENT SATURATIONS. WILL CONTINUE TO MONITOR PT, AND WILL REPORT OFF TO ONCOMING RN.
[2020-06-26 06:06] LABS: Alanine Aminotransfer (ALT/SGP 18 U/L (12-78); Albumin, Blood 2.5 g/dL (3.4-5.0); Albumin/Globulin Ratio 1.2 (0.8-1.8); Alk Phos 59 U/L (50-136); Anion Gap 7 mmol/L (6-16); Aspartate Aminotrans (AST/SGOT 50 U/L (12-37); Bilirubin, Total 23.3 mg/dL (0.1-1.0); Blood Urea Nitrogen 26 mg/dL (8-24); Bun/Creatinine Ratio 29.3 (12.0-20.0); CO2, Blood 21 mmol/L (21-32); Calcium, Blood 8.7 mg/dL (8.5-10.1); Chloride, Blood 112 mmol/L (98-108); Creatinine, Blood 0.89 mg/dL (0.40-1.00); Globulin, Blood 2.1 g/dL (2.2-4.0); Glomerular Filtration Rate >60 (60-); Glucose, Blood 103 mg/dL (70-99); Magnesium, Blood 1.8 mg/dL (1.6-2.4); Phosphorus, Blood 2.5 mg/dL (2.5-4.9); Potassium, Blood 4.2 mmol/L (3.5-5.5); Sodium, Blood 140 mmol/L (136-145); Total Protein, Blood 4.6 g/dL (6.4-8.2)
--- NOTE | 2020-06-26 10:58 | NUR ---
AM NOTE... ASSUMED CARE OF PT AT 0715, PT IS INTUBATED AND OFF SEDATION SINCE YESTERDAY AT 0818. PT IS STILL NOT RESPONDING WITH PURPOSEFUL MOVEMENTS, BUT SHE WILL PULL AWAY WITH ORAL CARE, SHE STILL WILL NOT FOLLOW DIRECTIONS. PT'S VS HAVE BEEN STABLE BP IMPROVED FROM YESTERDAY, THE MIDODRENE WAS D/C'D BY DR. LACEY THIS AM FOR SBP >120'S. PT HAS BEEN IS SR/ST 80'S-110'S. PT HAS 2+ PITTING EDEMA TO HER BUE, BLE AND GENERALIZED. PT HAD PARACENTISIS YESTERDAY THAT DRAINED 1.6L OF DARK BROWN FLUID, FLUID SENT TO THE LAB FOR REVIEW. GANN IS PATENT AND DRAINING DARK BROWN URINE, RECTAL TUBE IN PLACE AND PATENT DRAINING [place] BROWN CLEAR LIQUID STOOLS TO GRAVITY, RECTAL TUBE CARE WAS DONE THIS AM. PT'S CALLED AND UPDATED ON PT'S CONDITION AND PLAN OF CARE. WILL CONTINUE TO MONITOR.
--- NOTE | 2020-06-26 14:44 | NUR ---
PT UPDATE... PT CONTINUES TO BECOME MORE AGITATED AND HAS BEEN CRYING MORE, SHE HAS ALSO BEEN KICKING HER LEGS AND ATTEMPTING TO PULL THE ET TUBE OUT MORE FRANTICALLY. PT'S HR HAS ALSO INCREASED FROM THE 90'S-110'S TO 120'S-130'S. DR. LACEY WAS NOTIFIED AND PER DR. LACEY'S VERBAL ORDER PROPOFOL WAS STARTED AGAIN. PT'S WAS CALLED AND UPDATED. WILL CONTINUE TO MONITOR.
--- NOTE | 2020-06-26 15:19 | NUR ---
PT UPDATE... AT 1410 PT WAS PUT BACK ON PROPOFOL DUE TO AGITATION. AT 1505 DR. LACEY WAS AT THE BEDSIDE TO ASSESS THE PT. AND RT MIAN DECIDED THAT IT WOULD BE BEST TO PUT THE PT BACK ON AC MODE ON THE VENT. PT'S VENT SETTINGS WERE THEN CHANGED TO AC: 16/380/PEEP8/45%. PT'S PROPOFOL WAS INCREASED TO 30MCG/KG. WILL CONTINUE TO MONITOR.
--- NOTE | 2020-06-26 18:20 | NUR ---
SHIFT SUMMARY.... NO ACUTE NEGATIVE CHANGES NOTED SINCE PREVIOUS NOTES. PT'S VS HAVE BEEN STABLE. PT'S RECTAL TUBE BAG WAS CHANGED OUT, PT'S GANN IS PATENT AND DRAINED 425MLS OF BROWN URINE TO GRAVITY. PT'S OG TUBE HAS BEEN OFF SUCTION SINCE APROX 0930 THIS AM PT HAS BEEN TOLERATING THIS WELL. WILL CONTINUE TO MONITOR UNTIL REPORT IS GIVEN TO ONCOMING RN.
--- NOTE | 2020-06-26 20:00 | NUR ---
ASSUMED CARE OF PT AT 1915. REPORT RECEIVED AT BEDSIDE. PT PRESENTS IN BED. VENTED - SETTING CHECKED AND VERIFIED. AC 16, Tv 380, FIO2 45% PEEP 8. PT TOLERATING THIS WELL WITH INCREASE OF PROPOFOL TO 35 MCG'S/KG/MIN. MAINTAINS > 90 PERCENT SATURATIONS. WILL REVIEW CHART AND PLAN OF CARE FOR THIS PT.
--- NOTE | 2020-06-26 23:23 | NUR ---
PT'S CALLS THIS EVENING FOR UPDATE. THIS DONE FOR HIM. ALLOWED FOR QUESTIONS. PT HAS BEEN TOLERATING Q 2 HOUR TURNS IN BED. HAVE SUCTIONED PT PER ETT WITH RETURN OF LIGHT YELLOW SECRETIONS. PT MAINTAINS > 90 PERCENT SATURATIONS WITH CURRENT VENT SETTINGS. WILL CONTINUE TO MONITOR. OF NOTE: EMR SYSTEM WILL BE DOWN AT APPROX 2345 THIS NIGHT. WILL NEED TO REFER TO DOWNTIME [facility] ICU CHARTING FOR CONTINUED.
[2020-06-27 05:15] LABS: BASOPHILS ABSOLUTE AUTO 0.03 K/mm3 (0.00-0.23); BASOPHILS PERCENT AUTO 0 % (0-2); EOSINOPHILS ABSOLUTE AUTO 0.03 K/mm3 (0.00-0.68); EOSINOPHILS PERCENT AUTO 0 % (0-6); Hematocrit 21.6 % (33.0-51.0); Hemoglobin 7.3 g/dL (11.5-16.0); IMMATURE GRAN ABSOLUTE AUTO 0.07 K/mm3 (0.00-0.10); IMMATURE GRAN PERCENT AUTO 1 % (0-1); LYMPHOCYTES PERCENT AUTO 9 % (21-46); MONOCYTES ABSOLUTE AUTO 0.46 K/mm3 (0.16-1.47); MONOCYTES PERCENT AUTO 5 % (4-13); Mean Corpuscular HGB 32.3 pg (26.0-34.0); Mean Corpuscular HGB Conc 33.8 g/dL (31.5-36.5); Mean Corpuscular Volume 96 fL (80-100); Mean Platelet Volume 10.1 fL (9.1-12.4); NEUTROPHILS ABSOLUTE AUTO 7.75 K/mm3 (1.96-9.15); NEUTROPHILS PERCENT AUTO 85 % (41-73); Platelet Count 149 K/mm3 (150-400); RDW Coefficient Variation 22.2 % (11.7-14.2); Red Blood Cell Count 2.26 M/mm3 (3.80-5.20); White Blood Cell Count 9.14 K/mm3 (4.00-11.30)
[2020-06-27 05:47] LABS: International Normalized Ratio 1.7; Prothrombin Time Results 17.7 Sec (9.7-11.5)
[2020-06-27 06:03] LABS: Alanine Aminotransfer (ALT/SGP 26 U/L (12-78); Albumin, Blood 2.4 g/dL (3.4-5.0); Albumin/Globulin Ratio 0.9 (0.8-1.8); Alk Phos 61 U/L (50-136); Anion Gap 9 mmol/L (6-16); Aspartate Aminotrans (AST/SGOT 72 U/L (12-37); Bilirubin, Total 21.2 mg/dL (0.1-1.0); Blood Urea Nitrogen 32 mg/dL (8-24); Bun/Creatinine Ratio 43.1 (12.0-20.0); CO2, Blood 19 mmol/L (21-32); Calcium, Blood 8.7 mg/dL (8.5-10.1); Chloride, Blood 111 mmol/L (98-108); Creatinine, Blood 0.74 mg/dL (0.40-1.00); Globulin, Blood 2.7 g/dL (2.2-4.0); Glomerular Filtration Rate >60 (60-); Glucose, Blood 117 mg/dL (70-99); Magnesium, Blood 1.8 mg/dL (1.6-2.4); Phosphorus, Blood 2.2 mg/dL (2.5-4.9); Potassium, Blood 4.4 mmol/L (3.5-5.5); Sodium, Blood 139 mmol/L (136-145); Total Protein, Blood 5.1 g/dL (6.4-8.2)
--- NOTE | 2020-06-27 07:30 | NUR ---
PT RECEIVED FROM SIA LLANOS. PT ON VENTILATOR A/C 16/380/8/45%. SANDOSTATIN INF @50ML/HR, CLINIMIX @75ML/HR. PROPOFOL @40 MCG/KG/. ETT NOTED TO BE AT 21 @ THE TEETH, WILL ALERT . COLOR REMAINS JAUNDICED, EYES WATERING AND SWOLLEN, ABDOMEN SWOLLEN, ARMS AND LEGS SWOLLEN, EDEMATOUS. GANN DRAINING DARK RETURN, RECTAL TUBE DRAINING DARK RETURN. IV'S IN KRZYSZTOF, PICC. PT NOT RESPONDING TO VERBAL CUES AT THIS TIME.
--- NOTE | 2020-06-27 09:00 | NUR ---
PROPOFOL PLACED ON STANDBY PER 'S INSTRUCTIONS, ALSO INSTRUCTED TO ADVANCE ETT 3CM. PT TEARFUL, COUGHING, YELLOW THICK RETURN. PAS IN PLACE.
--- NOTE | 2020-06-27 11:10 | NUR ---
PT'S RESPIRATORY RATE INCREASING AND VERY TEARFUL, ANSWERING SOME QUESTIONS, FOLLOWING SOME COMMANDS, MEDICATED WITH 0.5MG ATIVAN PER . PT RELAXES SOME, SATS DROPPING TO HIGH 80'S. ENCOURAGED TO DEEP BREATHE, SATS IMPROVE.
--- NOTE | 2020-06-27 13:58 | NUR ---
PT UP IN RECLINER CHAIR, MOVED WITH R/T/RN/PCT VIA LIFT. SATS [id number] TO HI 90'S.
--- NOTE | 2020-06-27 14:32 | NUR ---
PT WITH RESPIRATORY RATE IN THE HI 30'S/SATS DROPPING TO THE 80'S, 25MCG OF FENTANYL GIVEN FOR COMFORT.
--- NOTE | 2020-06-27 18:34 | NUR ---
JANIS HAS HAD HER PROPOFOL OFF SINCE 0900. SHE HAS BEEN TACHYPNIC, TACHYCARDIC AND COUGHING THE ENTIRE SHIFT. SHE DROPS HER SATS TO THE LOW 80'S WITH COUGHING. SHE RECOVERS WITH SUCTIONING AND ADDITIONAL OXYGEN. SHE OPENS HER EYES OCCAISIONALLY, SHE WIGGLED HER TOES AND SQUEEZED MY HAND ONCE DURING THIS SHIFT, SHE HAS SHOOK HER HEAD "NO" WHEN ASKED TO OPEN HER EYES AND LOOK AT ME. SHE WAS UP IN THE RECLINER FOR ABOUT HALF THE DAY. SHE TOLERATED WELL. HER GANN HAD GOOD OUTPUT-500ML, HER RECTAL TUBE HAD 100ML COUNTED, AND WAS INCONT OF LIQUID AROUND HER RECTAL TUBE X3. HER EXTREMITIES CONTINUE TO BE EDEMATOUS WITH HER THIGH ON THE RIGHT SIDE WEEPING FROM THE SKIN. SCD'S IN PLACE WHILE IN BED, NOT ON WHILE IN THE CHAIR. HER ABDOMEN CONTINUES TO BE DISTENDED, HER MEDICATION GIVE VIA OG SEEN PASS AT THE RECTUM. OG CLAMPED. ,DR.GOSMAN DAVIDSON ALL IN TO SEE PATIENT TODAY. SHE WAS MEDICATED WITH 0.5MG ATIVAN EARLY IN THE SHIFT, SHE WAS MEDICATED WITH 25MCG OF FENTANYL IN THE AFTERNOON. SHE SEEMED TO RESPOND QUICKLY AND DROP HER SATS. HAS ASKED THAT I GIVE HER NO MORE SEDATION/SEDATIVES. VERBALLY ENCOURAGING HER AND TRYING TO GET HER MOTIVATED TO GET BETTER. WILL REPORT OFF TO NEXT SHIFT.
--- NOTE | 2020-06-27 20:00 | NUR ---
ASSUMED CARE OF PT AT 1915. REPORT RECEIVED AT BEDSIDE. PT PRESENTS IN BED. INTUBATED. AC 16, Tv 380, FIO2 40 % PEEP 8.0 PT NOTED TO BE VERY TACHYPNEIC WITH RR IN 40'S. OXYGEN SATURATION MID TO LOWER 80 PERCENTS. INCREASED FIO2 TO 70 PERCENT WHICH BRINGS SATURATION 90-92% DISCUSSED THIS WITH RESPIRATORY THERAPY. CALL MADE TO DR LCAEY TO DISCUSS PLAN OF CARE. UPDATE GIVEN. DR LACEY SAYS TO RESTART PT ON PROPFOL FOR THE NIGHT. DURING THIS TIME, PT WOULD SQUEEZE FINGERS WHEN ASKED. DOES NOT OPEN HER EYES. WILL SLOW RESPIRATORY RATE WHEN PROMPTED MOMENTARILY. WILL REVIEW CHART AND PLAN OF CARE FOR THIS PT.
--- NOTE | 2020-06-27 22:52 | NUR ---
PT CURRENTLY ON PROPOFOL AT 30 MCG'S/KG/MIN. PT ABLE TO CALM. RESPIRATORY RATE 20-30. HAVE BEEN ABLE TO TITRATE OXYGEN BACK TO 60 PERCENT. PT MAINTAINS > 92 PERCENT SATURATIONS. CHANGED OUT DIGNISHIELD SECONDARY TO LEAKAGE. WILL CONTINUE TO MONITOR PT.
--- NOTE | 2020-06-28 03:40 | NUR ---
PT NOTED TO BE VERY AGITATED/ANXIOUS THIS NIGHT. HAVE NEEDED TO INCREASE PROPOFOL TO 45 MCG'S/KG/MIN. PT FREQUENTLY MOVING ABOUT IN BED. HAS ONLY SMALL AMOUNT OF SECRETIONS RETURNED FROM ETT. MAINTAINING > 90 PERCENT SATURATIONS WITH FIO2 AT 60%. DIGNISHIELD CHECKED FOR PATENCY SECONDARY TO MINIMAL OUTPUT AFTER HAVING BEING CHANGED. GOOD RETURN FROM IRRIGATION. HAVE MEDICATED PT WITH 25 MCG FENTANYL WITH SOME NOTED IMPROVEMENT. WILL CONTINUE TO MONITOR PT.
--- NOTE | 2020-06-28 06:01 | NUR ---
PT HAS HAD A RESTLESS NIGHT. HAS REQUIRED PROPOFOL TO 45 MCG/KG/MIN TO PROVIDE ADEQUATE VENT TOLERANCE. PRIOR TO INCREASE OF PROPOFOL, PT WAS MOVING HER LEGS OFTEN AND MOVING HERSELF DOWN IN BED. WAS NOT REDIRECTABLE. DID CHECK PATENCY OF DIGNISHIELD WHICH PROVED PATENT, LOW SUCTION TO OGT WITH MINIMAL OUTPUT. MEDICATED WITH 25 MCG FENTANYL WITH SLIGHT IMPROVEMENT AT THE TIME. PT HAS HAD SEDATION VACATION EARLIER. HAS HAD DECREASE RESPIRATORY SECRETIONS SUCTIONED PER ETT. VERY JAUNDICED IN APPEARANCE. WILL CONTINUE TO MONITOR PT, AND WILL REPORT OFF TO ONCOMING RN.
--- NOTE | 2020-06-28 07:30 | NUR ---
PT RECEIVED FROM SIA LLANOS. SHELBI,RT IN ROOM WITH PATIENT SUCTIONING. PT'S ETT RETURN IS THIN YELLOWISH SECRETIONS, PT RESTLESS, LEGS ALL OVER THE BED, REPOSITIONED. VENTILATOR 16/380/8/60% PT SEEMS FRUSTRATED, UNCOMFORTABLE. SHE CONTINUES WITH JAUNDICE, EDEMA IN ALL EXTREMITIES AND HER FACE. GANN DRAINING DARK YELLOW/DIGNISHIELD WITH LIQUID GREEN/YELLOW RETURN. NG TUBE TO LIS WITH GREEN/YELLOW RETURN IN TUBING, HYPOACTIVE BOWEL SOUNDS . PICC TO KRZYSZTOF WITH CLINIMIX @ 75ML/HR OCTREOTIDE @25MCG/HR PROPOFOL @ 45 MCG/KG.
--- NOTE | 2020-06-28 09:00 | NUR ---
PT CONTINUES TO BE EXTREMELY RESTLESS/UNSETTLED. MEDICATED WITH 50MCG FENTANYL PER MAR. SEEMS TO HELP HER SETTLE DOWN.
[2020-06-28 10:16] LABS: International Normalized Ratio 1.86; Prothrombin Time Results 19.2 Sec (9.7-11.5)
[2020-06-28 10:17] LABS: Albumin, Blood 2.1 g/dL (3.4-5.0); Albumin/Globulin Ratio 0.8 (0.8-1.8); Bilirubin, Direct 12.7 mg/dL (0.0-0.3); Bilirubin, Indirect 3.3 mg/dL (0.1-0.7); Globulin, Blood 2.7 g/dL (2.2-4.0); Total Protein, Blood 4.8 g/dL (6.4-8.2)
--- NOTE | 2020-06-28 11:30 | NUR ---
PT BECOMING AGITATED AND RESTLESS AGAIN, MEDICATED WITH FENTANYL 25 MCG PER MAR, WITH GOOD RESULTS.
--- NOTE | 2020-06-28 15:13 | NUR ---
JANIS IS QUIETLY RESTING AT THIS TIME.
--- NOTE | 2020-06-28 18:41 | NUR ---
JANIS HAS BEEN RESTLESS AND AGITATED TODAY. SHE IS ON THE VENTILATOR, 16/380/5/40%. SHE HAS TOLERATED THIS WELL. HER PROPOFOL IS AT 40MCG/KG, HER CLINIMIX @ 75ML/HR. THE OCREOTIDE HAS BEEN DC'D. LUNGS REMAIN COARSE T/O, ABDOMEN SOFT, NG TO LIS, DIGNISHIELD WITH IMPROVED OUTPUT, GANN TO GRAVITY WITH GOOD RESPONSE TO LASIX. ALL EXTREMITIES REMAIN EDEMATOUS, RESTRAINTS REMAIN ON FOR SAFETY, SCD'S IN USE DURING THE DAY, WHEN SHE GETS EXTREMELY RESTLESS SHE BEGINS HITTING THE BED, FENTANYL 50MCG HAS BEEN GIVEN THROUGHOUT THE SHIFT PER JUL FOR COMFORT. AWARE AND IN AGREEMENT. WILL REPORT OFF TO NEXT SHIFT.
--- NOTE | 2020-06-28 19:00 | NUR ---
ASSUMED CARE ASSUMED CARE OF PATIENT. REMAINS INTUBATED- AC 16, TV 380, PEEP 5, FIO2 40%. RR 20-22. SEDATED WITH PROPOFOL AT 40MCG/KG/MIN. OPENS EYES AND MOVES ALL EXTREMITIES SPONTANEOUSLY, BUT DOES NOT TRACK WITH EYES OR FOLLOW COMMANDS. BILATERAL SOFT WRIST RESTRAINTS IN PLACE. PERIODS OF AGITATION/RESTLESSNESS. MONITOR SHOWS NSR, RATE 70s. BP STABLE. OF TO LIS WITH SMALL AMOUNT YELLOWISH DRAINAGE. ABD DISTENDED, FIRM. SKIN/SCLERAE JAUNDICED. GANN PATENT AND DRAINING DARK YELLOW URINE. SCDs TO BLEs. CLINIMIX INFUSING PER ORDER. SEE SHIFT ASSESSMENT FOR FULL ASSESSMENT.
[2020-06-29 05:20] LABS: BASOPHILS ABSOLUTE AUTO 0.02 K/mm3 (0.00-0.23); BASOPHILS PERCENT AUTO 0 % (0-2); EOSINOPHILS ABSOLUTE AUTO 0.03 K/mm3 (0.00-0.68); EOSINOPHILS PERCENT AUTO 0 % (0-6); Hematocrit 20.3 % (33.0-51.0); Hemoglobin 6.8 g/dL (11.5-16.0); IMMATURE GRAN ABSOLUTE AUTO 0.09 K/mm3 (0.00-0.10); IMMATURE GRAN PERCENT AUTO 1 % (0-1); LYMPHOCYTES ABSOLUTE AUTO 0.51 K/mm3 (0.84-5.20); LYMPHOCYTES PERCENT AUTO 6 % (21-46); MONOCYTES ABSOLUTE AUTO 0.42 K/mm3 (0.16-1.47); MONOCYTES PERCENT AUTO 5 % (4-13); Mean Corpuscular HGB 32.5 pg (26.0-34.0); Mean Corpuscular HGB Conc 33.5 g/dL (31.5-36.5); Mean Corpuscular Volume 97 fL (80-100); Mean Platelet Volume 10.6 fL (9.1-12.4); NEUTROPHILS ABSOLUTE AUTO 6.89 K/mm3 (1.96-9.15); NEUTROPHILS PERCENT AUTO 87 % (41-73); Platelet Count 147 K/mm3 (150-400); RDW Coefficient Variation 22.6 % (11.7-14.2); RDW Standard Deviation 73.7 fL (35.1-46.3); Red Blood Cell Count 2.09 M/mm3 (3.80-5.20); White Blood Cell Count 7.96 K/mm3 (4.00-11.30)
[2020-06-29 05:42] LABS: Alanine Aminotransfer (ALT/SGP 73 U/L (12-78); Albumin, Blood 2.3 g/dL (3.4-5.0); Albumin/Globulin Ratio 0.7 (0.8-1.8); Alk Phos 60 U/L (50-136); Anion Gap 7 mmol/L (6-16); Aspartate Aminotrans (AST/SGOT 107 U/L (12-37); Bilirubin, Total 15.1 mg/dL (0.1-1.0); Blood Urea Nitrogen 34 mg/dL (8-24); Bun/Creatinine Ratio 52.5 (12.0-20.0); CO2, Blood 21 mmol/L (21-32); Calcium, Blood 8.7 mg/dL (8.5-10.1); Chloride, Blood 111 mmol/L (98-108); Creatinine, Blood 0.65 mg/dL (0.40-1.00); Globulin, Blood 3.1 g/dL (2.2-4.0); Glomerular Filtration Rate >60 (60-); Glucose, Blood 127 mg/dL (70-99); Potassium, Blood 4.2 mmol/L (3.5-5.5); Sodium, Blood 139 mmol/L (136-145); Total Protein, Blood 5.4 g/dL (6.4-8.2)
--- NOTE | 2020-06-29 06:42 | NUR ---
SHIFT SUMMARY NO ACUTE CHANGES DURING NOC. REMAINS INTUBATED. FIO2 NOW 35%. REMAINS SEDATED WITH PROPOFOL BETWEEN 40-55MCG/KG/MIN- NOW AT 40MCG/KG/MIN. CONTINUES TO MOVE ALL EXTREMITIES SPONTANEOUSLY, BUT NOT FOLLOWING COMMANDS. ALSO MEDICATED WITH FENTANYL 50MCG IV X 4 DOSES AND ATIVAN 1MG IV X 2 DOSES FOR VENTILATOR TOLERANCE/SEDATION ADJUNCT. VSS. MONITOR SHOWS SB-SR, RATE 50s-70s. AFEBRILE. OG TO LIS WITH APPROXIMATELY 150CC DRAINAGE. GANN PATENT AND DRAINING TO GRAVITY. CALL FROM DURING SHIFT- UPDATE GIVEN. CLINIMIX CONTINUES AT 75CC/HR PER ORDER. WILL REPORT TO ONCOMING RN WHEN AVAILABLE.
--- NOTE | 2020-06-29 07:30 | NUR ---
PT ON VENTILATOR, RECEIVED FROM SIA WALTON. RESTING AT THIS TIME. PROPOFOL AT 40MCG/KG CPN @75ML/HR GANN DRAINING PERCY URINE, DIGNISHIELD DRAINING TO GRAVITY. LUNGS COARSE T/O, OG TUBE TO LIS WITH YELLOW RETURN. ABDOMEN DISTENDED, BUT SOFT, NON TENDER, OPENS EYES TO VOICE, HITS BED, MAKES CRYING FACE, ENCOURAGED TO REST.
--- NOTE | 2020-06-29 09:00 | NUR ---
PROPOFOL DOWN TO 20MCG/KG/MIN PER . PT TO SPONTANEOUS. OXYGEN AT 35%
--- NOTE | 2020-06-29 10:35 | NUR ---
1027 PT EXTUBATED BY JERRIRT IN ROOM. PT TEARFUL, CONGESTED BUT TOLERATING WELL. OXYGEN VIA HUMIDIFIER @ 3L/NC.
--- NOTE | 2020-06-29 12:00 | NUR ---
JANIS HAS BEEN AGITATED SINCE EXTUBATION, CRYING OUT TO GO HOME. SHE IS ORIENTED TO PERSON, PLACE, SITUATION, CONFUSED ON TIMING OF THINGS, ENCOURAGED.
--- NOTE | 2020-06-29 15:50 | NUR ---
JANIS'S BROTHER HERE FOR A VISIT, SENT BY . JANIS HAS CALLED HER A COUPLE OF TIMES, TEARFUL, CRYING, UPSET. HE HAS EXPRESSED THAT HE HAS A BAD COLD AND CAN'T COME IN, ALSO TAKING CARE OF THEIR BUSINESS. JANIS PULLING AT HER CORDS AND TUBES, WANTING TO LEAVE. ENCOURAGED.
--- NOTE | 2020-06-29 17:23 | NUR ---
JANIS HAS BEEN INTERMITTENLY AGITATED/CRYING/COOPERATIVE ALL DAY. SHE HAS TAKEN OFF HER OXYGEN CANNULA, HER ECG LEADS, THROWING HER LEGS OUT OF THE BED, TAKING OFF HER BLOOD PRESSURE CUFF, SEEING PEOPLE IN THE CORNER, THEN APPROPRIATE. SHE IS RECEIVING A UNIT OF PRBC'S RIGHT NOW. BROTHER AT THE BEDSIDE.
--- NOTE | 2020-06-29 18:51 | NUR ---
JANIS NOW SLEEPS, AFTER THE 0.5MG ATIVAN FOLLOWED BY THE FENTANYL 50MCG.
--- NOTE | 2020-06-29 20:55 | NUR ---
SHIFT ASSESSMENT ASSUMED CARE OF PT @ 1900, REPORT FROM SIA KWAN. PT ALERT AND ORIENTED TO PERSON AND PLACE, NOT SURE OF DATE AND TIME. WHEN AWAKE, PT CRYING, PULLING AT BP CUFF AND ECG LEADS, REQUESTING TO GO HOME. STATES "I AM STRONG ENOUGH TO LEAVE", BUT WHEN ASKED TO LIFT LEGS, PT VERY WEAK AND CANNOT KEEP LEGS ELEVATED OFF OF THE BED. THIS NURSE INFORMED PT OF THE NEED TO WORK WITH PHYSICAL THERAPY AND INFORMED THIS PROCESS TO GO HOME WILL BE GRADUAL. PT CONTINUED TO BE DISTRESSED, PULLING OFF GOWN AND REQUESTING HER CAR KEYS. AFTER PROVIDING PT WITH CELL PHONE AND ASSISTING TO A MORE COMFORTABLE POSITION, PT MEDICATED WITH PRN ATIVAN AND FENTANYL. SKIN JAUNDICED THROUGHOUT. CLINIMIX GTT INFUSING AT PRESCRIBED RATE. WILL CONTINUE TO MONITOR. GANN CATH PATENT, DRAINING DARK URINE. RECTAL TUBE DRAINING BROWN, LOOSE STOOL. SCD'S TO BL EXTREMITIES.
--- NOTE | 2020-06-29 22:02 | NUR ---
UPDATE PT CONTINUED TO BE AGGRAVATED, PULLING AT CORDS, REMOVING ECG LEADS, OXYGEN, AND PULSE OXIMETRY. ATTEMPTING TO GET OUT OF BED, PT NOT REDIRECTABLE. DR SELF CONSULTED, PRECEDEX GTT ORDERED AND INITIATED @ 0.4MCG/KG/HR. PT NOW RESTING, VSS, CALL LIGHT WITHIN REACH. WILL CONTINUE TO MONITOR.
[2020-06-30 03:37] LABS: Mean Corpuscular HGB 32.9 pg (26.0-34.0); Mean Corpuscular HGB Conc 33.3 g/dL (31.5-36.5); Mean Corpuscular Volume 99 fL (80-100); Mean Platelet Volume 10.5 fL (9.1-12.4); Platelet Count 130 K/mm3 (150-400); RDW Coefficient Variation 21.8 % (11.7-14.2); RDW Standard Deviation 72.8 fL (35.1-46.3); Red Blood Cell Count 2.13 M/mm3 (3.80-5.20); White Blood Cell Count 7.61 K/mm3 (4.00-11.30)
--- NOTE | 2020-06-30 06:21 | NUR ---
SHIFT SUMMARY PT REMAINS ON PRECEDEX, SEE FLOW SHEET FOR TITRATION. WHILE PT IS AWAKE SHE IS EMOTIONAL AND ADAMANT ABOUT FINDING HER KEYS AND GOING HOME. PT IS DIFFICULT TO CONSOLE, REQUIRES ADJUNCT DOSING OF ATIVAN AND FENTANYL WHEN IN THIS STATE. NO SIGNIFICANT CHANGES FROM PREVIOUS NOTE. WILL CONTINUE TO MONITOR.
[2020-06-30 06:28] LABS: BASOPHILS ABSOLUTE AUTO 0.01 K/mm3 (0.00-0.23); BASOPHILS PERCENT AUTO 0 % (0-2); EOSINOPHILS ABSOLUTE AUTO 0.09 K/mm3 (0.00-0.68); EOSINOPHILS PERCENT AUTO 1 % (0-6); Hematocrit 22.8 % (33.0-51.0); Hemoglobin 7.8 g/dL (11.5-16.0); IMMATURE GRAN ABSOLUTE AUTO 0.17 K/mm3 (0.00-0.10); IMMATURE GRAN PERCENT AUTO 2 % (0-1); LYMPHOCYTES ABSOLUTE AUTO 0.63 K/mm3 (0.84-5.20); LYMPHOCYTES PERCENT AUTO 9 % (21-46); MONOCYTES ABSOLUTE AUTO 0.34 K/mm3 (0.16-1.47); MONOCYTES PERCENT AUTO 5 % (4-13); Mean Corpuscular HGB 32.6 pg (26.0-34.0); Mean Corpuscular HGB Conc 34.2 g/dL (31.5-36.5); Mean Corpuscular Volume 95 fL (80-100); Mean Platelet Volume 10.2 fL (9.1-12.4); NEUTROPHILS ABSOLUTE AUTO 6.09 K/mm3 (1.96-9.15); NEUTROPHILS PERCENT AUTO 83 % (41-73); Platelet Count 147 K/mm3 (150-400); RDW Coefficient Variation 21.4 % (11.7-14.2); RDW Standard Deviation 68.5 fL (35.1-46.3); Red Blood Cell Count 2.39 M/mm3 (3.80-5.20); White Blood Cell Count 7.33 K/mm3 (4.00-11.30)
[2020-06-30 07:08] LABS: Ferritin, Serum 459 ng/mL (8-252); Iron Serum 106 ug/dL (50-170); Total Iron Binding Capacity 101 ug/dL (250-450)
[2020-06-30 07:11] LABS: Albumin, Blood 2.2 g/dL (3.4-5.0); Anion Gap 8 mmol/L (6-16); Blood Urea Nitrogen 32 mg/dL (8-24); Bun/Creatinine Ratio 54.1 (12.0-20.0); CO2, Blood 22 mmol/L (21-32); Calcium, Blood 8.6 mg/dL (8.5-10.1); Chloride, Blood 111 mmol/L (98-108); Creatinine, Blood 0.59 mg/dL (0.40-1.00); Glomerular Filtration Rate >60 (60-); Glucose, Blood 101 mg/dL (70-99); Phosphorus, Blood 3.1 mg/dL (2.5-4.9); Sodium, Blood 141 mmol/L (136-145)
[2020-06-30 07:12] LABS: Potassium, Blood 3.7 mmol/L (3.5-5.5)
--- NOTE | 2020-06-30 12:18 | NUR ---
REASSESSMENT PT HAS BEEN RESTING IN BED T/O THE MORNING. PT IS VERY DROWSY WHEN AWAKE, MUMBLES AND SPEAKS SOFTLY SO SHE IS DIFFICULT TO UNDERSTAND. TITRATED PRECEDEX DOWN THROUGHOUT THE MORNING, BUT PT REMAINS VERY DROWSY. DR. DAILEY ORDERED BLOOD GAS, WAITING FOR RESULTS. LUNGS WERE CLEAR THIS MORNING, BUT HAVE BECOME COARSE. TRYING TO GET PT TO WAKE UP AND COUGH MORE, BUT ONCE AGAIN, DIFICULT TO AWAKEN. SPO2 REMAINS ABOVE 95% ON THE 4L/NC, BUT RR IS 30 AND PT'S BREATHING APPEARS LABORED. SR, BP STABLE. VOIDING PERCY COLORED URINE. LIQUID STOOL IN RECTAL TUBE. SPOKE WITH PT'S FRIEND HUGO AND PROVIDED UPDATE. CONTINUE TO MONITOR.
[2020-06-30 12:22] LABS: PCO2 Arterial 34.6 mmHg (35-45); PO2 Arterial 102 mmHg (80-100)
--- NOTE | 2020-06-30 18:03 | NUR ---
SHIFT SUMMARY PT WAS ON AND OFF SEDATION TODAY. WHEN PRECEDEX IS TURNED DOWN PT WAKES UP, TRIES TO TALK BUT HAS TO BE REMINDED FREQUENTLY TO SPEAK LOUDER AND CLEAR TO BE UNDERSTOOD. PT FREQUENTLY CRIES WHEN SHE IS AWAKE, WANTING TO GO HOME, OR A SHOWER OR A T-SHIRT. HELPED PT CALL HER AND PT TOLD HIM THAT THE DOCTOR HAD APPROVED HER TO GO HOME FOR THE NIGHT AND COME BACK IN THE MORNING (CLARIFIED WITH THAT THIS WAS NOT TRUE). WHEN PT WAS MOST ALERT ATTEMPTED TO GIVE HER SIPS OF WATER BY TEASPOON AND PT HAD SIGNIFICANT COUGHING RIGHT AWAY. INFORMED DR. DAILEY OF THIS AND ORDER FOR DOBHOFF RECEIVED. DOBHOFF PLACED WITHOUT DIFFICULTY TO THE 70CM EVERTON. DR. DAILEY VERIFIED PLACEMENT ON XRAY. PT'S BREATHING CONTINUES WITH RATE RIGHT AROUND 30, STILL APPEARS A LITTLE LABORED. LUNGS ARE COARSE, BUT DO CLEAR IF PT IS ABLE TO GET A STRONG COUGH OUT. SR, BP STABLE. RECTAL TUBE AND GANN STILL IN PLACE AND DRAINING. PT'S GIVEN MULTIPLE UPDATES THROUGHOUT THE DAY. CONTINUING TO MONITOR.
--- NOTE | 2020-06-30 20:15 | NUR ---
SHIFT ASSESSMENT ASSUMED CARE OF PT @ 1900, REPORT RECV'D FROM SIA SRINIVASAN. PT ON PRECEDEX @ 0.2MCG'S UPON INITIAL ASSESSMENT. PT IN BED ATTEMPTING TO TALK ON HER PHONE, OTHER VOICES OVERHEARD ON THE OTHER LINE, PT HUSBANDS CALLED SHORTLY AFTER AND REQUESTED WE KEEP HER PHONE OUT OF HER REACH AT THIS TIME DUE TO PT CALLING HIS BOSS AND RANDOM OTHER CONTACTS. PT MORE ALERT TODAY, KNOWS WHERE SHE IS AND YEAR BUT STILL BELIEVES DR. MOORE IS SENDING HER HOME IN THE AM. THIS NURSE ATTEMPTED TO EXPLAIN THE SITUATION, BUT PT ARGUMENTATIVE YET MORE REDIRECTABLE TODAY, ABLE TO ASSIST WITH HER OWN ORAL CARE. COUGHING UP THICK YELLOW SPUTUM. RT IN ROOM TEACHING PT HOW TO USE FLUTTER VALVE AND IS. LS COARSE T/O, FINE CRACKLES UPPER LEFT LOBE. ON 4LPM O2 VIA NC c SATS >90%. CLINIMIX INFUSING. RECTAL TUBE AND GANN CATH PATENT, DRAINING TO GRAVITY. WILL CONTINUE TO MONITOR.
--- NOTE | 2020-07-01 05:53 | NUR ---
SHIFT SUMMARY PT REMAINS ON PRECEDEX, SEE FLOWSHEET FOR TITRATION. PT CONTINUES TO HAVE INTERMITTENT BOUTS OF CLARITY FOLLOWED BY EMOTIONAL OUTBURSTS, CRYING OUT TO GO HOME, REQUESTING HER SHOES AND KEYS. DURING CLEAR MOMENTS PT IS CALM AND COOPERATIVE, PERFORMING HER OWN ORAL CARE WITH SUCTION SWAB, USING FLUTTER VALVE WITH COACHING. DURING THE OUTBURSTS, PT IS VERY EMOTIONAL AND SPONTANEOUS. AT 0610 PT PULLED HER DOBHOFF AND WILL NOT ALLOW THIS NURSE TO INSERT NEW ONE IN. I EXPLAINED TO PT THE NECESSITY OF THE DOBHOFF FOR ADMINISTERING MEDICATIONS, AND HOW THIS WILL HELP HER GET WELL, HOWEVER PT CONTINUED TO REFUSE AND STATED "I WILL TALK TO THE DR THIS MORNING". NO CHANGES IN OXYGEN REQUIREMS. GANN CATH REMAINS PATENT, RECTAL TUBE IN PLACE DRAINING TO GRAVITY. WILL CONTINUE TO MONITOR.
--- NOTE | 2020-07-01 07:30 | NUR ---
ASSUMED CARE: PT RESTING IN BED, TALKING TO STAFF. TEARFUL STATES THERE IS SOMETHING WET UNDER HER. NIGHT RN AND DAY RN INSPECTED WITH NO FINDINGS. PT APPEARS VERY JAUNDICE, PRECEDEX GTT AT 0.7 AT THIS TIME. CLINIMIX RUNNING WELL. PT PULLED DOBHOFF AT END OF COMPUTER SECURITY COORDINATOR AND REFUSED REPLACEMENT. WILL EVALUATE FURTHER. GANN AND RECTAL TUBES IN PLACE. NO ACUTE NEEDS OR CONCERNS AT THIS TIME.
[2020-07-01 08:05] LABS: BASOPHILS ABSOLUTE AUTO 0.01 K/mm3 (0.00-0.23); BASOPHILS PERCENT AUTO 0 % (0-2); EOSINOPHILS ABSOLUTE AUTO 0.04 K/mm3 (0.00-0.68); EOSINOPHILS PERCENT AUTO 1 % (0-6); Hematocrit 20.2 % (33.0-51.0); Hemoglobin 6.8 g/dL (11.5-16.0); IMMATURE GRAN ABSOLUTE AUTO 0.11 K/mm3 (0.00-0.10); IMMATURE GRAN PERCENT AUTO 1 % (0-1); LYMPHOCYTES ABSOLUTE AUTO 0.49 K/mm3 (0.84-5.20); LYMPHOCYTES PERCENT AUTO 6 % (21-46); MONOCYTES ABSOLUTE AUTO 0.36 K/mm3 (0.16-1.47); MONOCYTES PERCENT AUTO 5 % (4-13); Mean Corpuscular HGB 33.3 pg (26.0-34.0); Mean Corpuscular HGB Conc 33.7 g/dL (31.5-36.5); Mean Corpuscular Volume 99 fL (80-100); NEUTROPHILS ABSOLUTE AUTO 6.76 K/mm3 (1.96-9.15); NEUTROPHILS PERCENT AUTO 87 % (41-73); Platelet Count 125 K/mm3 (150-400); RDW Coefficient Variation 22.4 % (11.7-14.2); RDW Standard Deviation 75.2 fL (35.1-46.3); Red Blood Cell Count 2.04 M/mm3 (3.80-5.20); White Blood Cell Count 7.77 K/mm3 (4.00-11.30)
--- NOTE | 2020-07-01 08:30 | NUR ---
PT CONTINUES TO STATE SHE FEELS WET AND THAT SHE IS "SITTING IN PEE." RN PLACED HAND UNDER PT'S BOTTOM TO FEEL BEDDING WITH NO WETNESS NOTED. PT STATED "IT SMELLS," RN REORIENTED PT THAT RECTAL TUBE IS IN PLACE. PT ASKED IF IT COULD BE REMOVED AND REMINDED PT THAT RECTAL TUBE AND GANN ARE THERE UNTIL PT IS ABLE TO GET UP TO BSC. PT BECAME TEARFUL AND CRYING WHEN ARGUING WITH STAFF. STATES SHE HAS BEEN FORCED TO LAY IN BED IN HER PEE FOR TWO DAYS AND EVERYONE KEEPS LYING TO HER. ATTMEPTING TO REORIENT ABLE.
--- NOTE | 2020-07-01 09:27 | NUR ---
PT IS VERY EMOTIONAL, TEARFUL. WAS ORIENTED ENOUGHT TO TELL RN PHONE NUMBERS TO DIAL. BELIEVES SHE HAS ONLY BEEN IN HOSPITAL FOR TWO DAYS BUT KNOWS SHE CAME IN ON . REORIENTED THAT SHE WAS EXTUBATED 2 DAYS AGO. PT KEEPS ASKING TO GET UP TO GO TO THE BATHROOM. DR HERNANDES WAS AT BEDSIDE AND ASSISTED PT TO SIT UP TO LISTEN TO HER LUNGS. TOLD PT THAT WE WERE GOING TO SIT HER UP TO SEE HOW STRONG SHE WAS AND MAY BE ABLE TO SIT HER UP. TWO PEOPLE WERE REQUIRED TO SIT HER UP IN BED. WHEN WE LAYED HER BACK DOWN SHE SAID TOLD DR HERNANDES THAT SHE LIED BECAUSE SHE SAID SHE COULD GET UP TO WHICH DR HERNANDES REITERATED THAT WE WERE ASSESSING HOW STRONG SHE IS. DR DAVID CAME TO BEDSIDE AND EVALUATED PT WELL. PT CONTINUES TO REFUSE DOBHOFF, WANTS TO GET OUT OF BED AND SIT UP AND EAT. PLAN IS FOR HER TO WORK WITH PT/OT/ST TODAY. DRS AWARE OF H/H. WILL RECHECK THIS AFTERNOON.
--- NOTE | 2020-07-01 10:00 | NUR ---
PT STATES SHE IS WET. RN AND WALLPAPER CONSULTANT REPOSITIONED AND LINENS REMOVED. WETNESS NOTED TO LINENS THAT WAS NOT THERE WHEN RN LAST CHECKED. PT CONTINUES TO STATE THIS RN HAS IGNORED HER AND LEFT HER IN HER PEE FOR 2 DAYS. WALLPAPER CONSULTANT ATTEMPTED TO REORIENT PT. PT'S THINKING APPEARS CONCRETE AT THIS TIME.
[2020-07-01 10:15] LABS: Anion Gap 10 mmol/L (6-16); Blood Urea Nitrogen 35 mg/dL (8-24); Bun/Creatinine Ratio 58.9 (12.0-20.0); CO2, Blood 21 mmol/L (21-32); Calcium, Blood 8.6 mg/dL (8.5-10.1); Chloride, Blood 102 mmol/L (98-108); Creatinine, Blood 0.59 mg/dL (0.40-1.00); Glomerular Filtration Rate >60 (60-); Glucose, Blood 416 mg/dL (70-99); Magnesium, Blood 2.1 mg/dL (1.6-2.4); Sodium, Blood 133 mmol/L (136-145)
[2020-07-01 10:16] LABS: Potassium, Blood 5.8 mmol/L (3.5-5.5)
--- NOTE | 2020-07-01 11:46 | NUR ---
PT'S CALLED AND STATED THAT PT KEEPS CALLING HIM AND SAYING SHE IS GOING TO SIGN HERSELF OUT TODAY. EXPLAINED TO HIM HOW [facility] POLICY WORKS AND HE VERBALIZED UNDERSTANDING. HE SAID HE THOUGHT SHE WAS CONFUSED AND EXPLAINED THE CONVERSATIONS THIS AM WITH PT REGARDING BEING WET, NOT BEIGN ABLE TO EAT, AND HOW LONG SHE'S BEEN HERE. HE STATES HE WILL BE HERE TO SEE HER DURING VISITING HOURS. CNAS AT BEDSIDE PERFORMING CATH CARE AND LINEN CHANGE AT THIS TIME DUE TO RECTAL TUBE LEAKING.
[2020-07-01 11:48] LABS: International Normalized Ratio 2.19; Prothrombin Time Results 22.4 Sec (9.7-11.5)
[2020-07-01 12:08] LABS: Albumin/Globulin Ratio 0.7 (0.8-1.8); Bilirubin, Direct 12.1 mg/dL (0.0-0.3); Bilirubin, Total 15.1 mg/dL (0.1-1.0); Globulin, Blood 2.9 g/dL (2.2-4.0); Total Protein, Blood 4.9 g/dL (6.4-8.2)
--- NOTE | 2020-07-01 12:11 | NUR ---
PT CALLED OUTPT THERAPY SAYING SHE HAD AN APPOINTMENT. CALL TO THERAPY OFFICE WHO SAID SHE HAS NOT BEEN ASSIGNED AT THIS TIME AND THERAPY WILL PROBABLY SEE HER THIS AFTERNOON.
[2020-07-01 13:31] LABS: Hematocrit 21.8 % (33.0-51.0); Hemoglobin 7.4 g/dL (11.5-16.0)
--- NOTE | 2020-07-01 14:54 | NUR ---
PT'S H/H HAS IMPROVED AND PT CONTINUES TO TALK ABOUT LEAVING [facility]. PT'S WAS AT BEDSIDE AND TOLD HER HE WAS NOT TAKING HER HOME. SHE STATED SHE WAS GOING TO HAVE A FRIEND COME GET HER. DR DAVID AWARE OF SITUATION AND CURRENT STATUS. PT COMPLETED EVAL WITH PHYSICAL THERAPY AND WAS A 1-2 ASSIST WITH TRANSFERS OUT OF BED. SITTING UPRIGHT IN RECLINER AT THIS TIME.
--- NOTE | 2020-07-01 18:35 | NUR ---
SHIFT SUMMARY: PT HAS BEEN SITTING UP IN CHAIR MAJORITY OF THE DAY. WORKED WITH PT/OT/ST. RECTAL TUBE AND GANN HAVE BEEN REMOVED AND PT HAS BEEN AMBULATING WITH ONE ASSIST AND A WALKER AND GAIT BELT. HAS BEEN EMOTIONAL TODAY AND TEARFUL. CONTINUES TO SAY SHE WANTS TO GO HOME AND HAS REQUIRED BEING TALKED DOWN BY THIS RN, HER AND FRIEND. SEEMS IN BETTER SPIRITS NOW THAT SHE IS SITTING UP IN CHAIR BY WINDOW
--- NOTE | 2020-07-02 01:09 | NUR ---
ASSUMED CARE AT 1900 PT UP IN CHAIR WAITING BY THE WINDOW FOR HER FAMILY. PT IS ALERT AND ORIENTED AND OCCATIONALLY MAKES HER NEEDS KNOWN. PT IS CALM/COOPERATIVE WITH CARE AND THANKFUL FOR THE ASSISTANCE. PT TENDS TO REPEAT HERSELF IN HER GOALS OF LEAVING THE HOSPITAL BY WEDNESDAY. AFIBRILE. SOP2 >95% ON RA. HR 95-105. BP STABLE. PT NO COMPLAINTS OF NAUSEA AND TOLERATING THIN LIQUIDS AND PUDDING WELL. PT JAUNDICE ALL OVER, INCLUDING EYES. BLE EDEMA 2-3+. CLINIMIX AND LIPIDS INFUSING VIA PICC TO [id number]. SEE SHIFT ASSESSMENT FOR FULL ASSESSMENT.
[2020-07-02 04:11] LABS: Hematocrit 22.8 % (33.0-51.0); Hemoglobin 7.8 g/dL (11.5-16.0); Mean Corpuscular HGB 32.2 pg (26.0-34.0); Mean Corpuscular HGB Conc 34.2 g/dL (31.5-36.5); Mean Platelet Volume 10.8 fL (9.1-12.4); Platelet Count 189 K/mm3 (150-400); RDW Coefficient Variation 22.6 % (11.7-14.2); RDW Standard Deviation 69.1 fL (35.1-46.3); Red Blood Cell Count 2.42 M/mm3 (3.80-5.20); White Blood Cell Count 12.13 K/mm3 (4.00-11.30)
[2020-07-02 04:16] LABS: Mean Corpuscular Volume 94 fL (80-100)
[2020-07-02 04:56] LABS: Alanine Aminotransfer (ALT/SGP 83 U/L (12-78); Albumin, Blood 2.2 g/dL (3.4-5.0); Albumin/Globulin Ratio 0.8 (0.8-1.8); Alk Phos 65 U/L (50-136); Aspartate Aminotrans (AST/SGOT 92 U/L (12-37); Bilirubin, Total 17.8 mg/dL (0.1-1.0); Blood Urea Nitrogen 29 mg/dL (8-24); Bun/Creatinine Ratio 48.6 (12.0-20.0); CO2, Blood 24 mmol/L (21-32); Calcium, Blood 8.6 mg/dL (8.5-10.1); Chloride, Blood 110 mmol/L (98-108); Globulin, Blood 2.9 g/dL (2.2-4.0); Glomerular Filtration Rate >60 (60-); Glucose, Blood 114 mg/dL (70-99); Total Protein, Blood 5.1 g/dL (6.4-8.2)
[2020-07-02 05:05] LABS: Anion Gap 9 mmol/L (6-16); Potassium, Blood 2.9 mmol/L (3.5-5.5); Sodium, Blood 143 mmol/L (136-145)
--- NOTE | 2020-07-02 06:22 | NUR ---
UPDATE DR VICENTE CALLED AT 0515 REGARDING PT K+ LAB THIS AM OF 2.9. NEW ORDERS PROVIDED FOR 40MEQ OF KCL.
--- NOTE | 2020-07-02 06:24 | NUR ---
END OF SHIFT SUMMARY PT SLEPT OFF AND ON ONCE IN BED AT 0000. PT IS ALERT/ORIENTED AND ABLE TO MAKE HER NEEDS KNOWN. PT HAS BEEN VERY CALM AND COOPERATIVE WITH CARE AND VERY THANKFUL FOR RN HELP. PT STATES SHE HAS THE MOTIVATION TO BE WALKING AND STRONG ENOUGH TO LEAVE THE HOSPITAL BY WEDNESDAY. AFIBRILE. SPO2 >95% ON RA. HR 90-105. SBP 140'S. JAUNDICE NOTED T/O. CLINIMIX AND KCL INFUSING VIA PICC TO [id number]. PT TOLERATING THIN LIQUIDS WELL. WILL REPORT TO AM RN WHEN AVAILABLE.
--- NOTE | 2020-07-02 07:30 | NUR ---
RECEIVED PT FROM SIA REYNA. PT SLEEPING AT THIS TIME, CLINIMIX @ 75ML/HR, NS @ 10ML/HR. LUNGS CONGESTED, ABDOMEN SOFT, PULSES GOOD, 2+ EDEMA LOWER EXTREMITIES.
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
--- NOTE | 2020-07-02 10:30 | NUR ---
PT GETTING UP WITH OT, INCONTINENT OF LARGE AMOUNT OF URINE AND FECES, ASKED IF SHE KNOWS WHEN SHE NEEDS TO GO, SHE STATES IT'S CONTINUOUS.
--- NOTE | 2020-07-02 12:30 | NUR ---
PT UP TO BSC, INCONTINENT OF LARGE AMOUNT OF URINE IN CHAIR. USED COMMODE WITH CHUNKY BITS IN LIQUID STOOL.
--- NOTE | 2020-07-02 14:20 | NUR ---
JANIS HAS BEEN VERBALLY ENCOURAGING HERSELF TODAY, ALTHOUGH SHE GETS INCREDIBLY WORN OUT WITH MIN EXERTION. SHE HAS BEEN IN THE CHAIR FOR THE MAJORITY OF THE DAY, ONCE TO [facility] [place] LOWER EXTREMITIES CONTINUE TO BE 2+ EDEMA WITH TIGHT SKIN. PAINFUL. SHE HAS BEEN INCONTINENT X2, LIQUID STOOL MIXED WITH URINE. NOW AT HER BEDSIDE.
--- NOTE | 2020-07-02 15:11 | NUR ---
PT UP IN THE CHAIR, HERE VISITING. PT STATES SHE WANTS TO WALK, SHE HAS BEEN UNABLE TO STAND ON HER OWN YET TODAY. SHE NEEDS AT MINIMUM ONE PERSON TO HELP WITH GAIT BELT. SEEMS DISCOURAGED, BUT OK. BROUGHT PIC OF THE GIRLS. PT VERY EXHAUSTED.
--- NOTE | 2020-07-02 16:30 | NUR ---
JANIS REALLY WANTED TO WALK, WE PUT ON THE GAIT BELT, STOOD UP OUT OF THE RECLINER, USED THE WALKER AND WALKED AROUND THE NURSES' STATION AND RETURNED TO HER ROOM, UP IN CHAIR IN ROOM FOR DINNER.
--- NOTE | 2020-07-02 18:27 | NUR ---
Spiritual care note: Maura expresses enormous gratitude for her recovery. She stated several times that she "will never touch a bottle again" and has "learned her lesson." She has a neighbor/friend who is very active in AA and plans on attending AA meetings to help sustain sobriety. She tells me that ehr is going to quit drinking as well. They both work in a bar. Maura says they will find a different job as she recognizes that being around ETOH would be too tempting. At times, she was repetative and confused: Telling me several times that she is going home tomorrow. "I'm sorry it came to this" she said repeatedly as well. She appears weak and tired, but allowed me to pray. We had an easy rapport and she thanked me for support/encouragement. I will remain available.
--- NOTE | 2020-07-02 19:10 | NUR ---
ASSUMED CARE RECEIVED REPORT FROM AQUILESRN; PT A&O X3; DENIES CHEST PAIN; VSS; O2 SATS >93 ON RA; UP TO BSC W/ FWW AND GAIT BELT; BLE EDEMS 2+; PT STATES SHE IS PRETTY TIRED FROM DAYS ACTIVITIES; CALL LIGHT IN REACH; BED IN LOWEST POSITION.
--- NOTE | 2020-07-02 20:30 | NUR ---
PT BACK TO BED W/ SIGNIFICANT HELP; PT STATES LEGS HURT AND SHE IS VERY TIRED; CALLED SPOUSE BACK TO GIVE UPDATE REQUESTED; PT CURRENTLY WATCHING TV IN BED; CALL LIGHT IN REACH; BED IN LOWEST POSITION.
--- NOTE | 2020-07-03 01:42 | NUR ---
PT AWAKE AND STATES SHE IS VERY TIRED, BUT UNABLE TO SLEEP; ENCOURAGED PT TO USE BSC SINCE SHE WAS AWAKE, PT REFUSED; OFFERED REPOSITIONING, PT REFUSED; CALL LIGHT IN REACH; BED IN LOWEST POSITION
--- NOTE | 2020-07-03 02:38 | NUR ---
PT WAS FOUND TO BE AT EDGE OF BED DISROBED & SOILED; INCONTINENT OF URINE & STOOL; BEDDING AND GOWN SATURATED AND PT HANDS COVERED W/ STOOL SHE KEPT TOUCHING STOOL; AID ASSISTED THIS RN CLEANING PT AND CHANGING LINENS; GAIT BELT & FWW TO ASSIST PT TO BSC; PT TEARFUL AND APPOLOGETIC; PT BACK TO BED W/ NO ISSUE; PT RE-EDUCATED TO CALL FOR ASSISTANCE; CALL LIGHT IN REACH; BED IN LOWEST POSITION; BED ALARM ON FOR SAFETY.
--- NOTE | 2020-07-03 04:58 | NUR ---
SHIFT SUMMARY PT A&O X 2-3; DENIES CHEST PAIN; VSS; O2 SATS >93 ON RA; PT HAS HAD INCONTINENT URINE MIXED W/ LOOSE WATERY STOOL X2 THIS SHIFT; ATTENDS IN PLACE; PT HAS SLEPT VERY MINIMALLY THIS SHIFT; CLINIMIX GTT @ 75; PT RECEIVED FLAGYL; THIAMINE; LIPIDS; REFER TO EMAR; PT WEIGHT INCREASED TO 98 KG; BLE 2+ EDEMA; DYSPHAGIA PRECAUTIONS OBSERVED; REPOSISTIONING Q2; ORAL CARE PROVIDED; CALL LIGHT IN REACH; BED IN LOWEST POSITION; BED ALARM ON; WILL CONITNUE TO MONITOR CLOSELY UNTIL HAND OFF TO DAY SHIFT RN.
--- NOTE | 2020-07-03 08:30 | NUR ---
INITIAL ASSESSMENT PATIENT ALERT AND ORIENTED TO ALL ORIENTATION QUESTIONS, HOWEVER IS VERY CONFUSED AT TIMES. PATIENT THINKING SHE NEEDED TO GET UP AND HELP DAUGHTERS GET READY FOR SCHOOL THIS AM. SPEECH SLIGHTLY SLURRED. PATIENT WITHDRAWN, FLAT, DEPRESSED. PATIENT STATES "I DON'T KNOW WHY I AM DEPRESSED. I DON'T HAVE ANY REASON TO BE". PATIENT WEAK BUT ABLE TO REMOVE ALL EXTREMITIES. SCLERA JAUNDICED. R EYE RED. PATIENT AFEBRILE. PATIENT DENIES PAIN. PATIENT SATTING 90% AND GREATER ON RA. LUNGS DIMINISHED TO AUSCULTATION. SHALLOW BREATHS NOTED. PATIENT IN ST, HR IN THE LOW 100S. SBP IN THE 140S. PATIENT HAS PITTING EDEMA TO ABD/ LOWER EXTREMITIES. HYPOACTIVE BS NOTED. LAST BM NOTED ON 07/02. PATIENT HAS ATTENDS ON FOR URINARY INCONTINENCE. SKIN JAUNDICED. PERINANAL AREA REDDENED. ABRASION NOTED TO L LEG. SCATTERED BRUISES NOTED. CLINIMIX INFUSING AT 75 MLS/ HOUR. NS TKO. BED LOW, CALL LIGHT IN REACH. WILL CONTINUE TO MONITOR PATIENT FREQUENTLY THROUGHOUT SHIFT.
[2020-07-03 11:16] LABS: Alanine Aminotransfer (ALT/SGP 90 U/L (12-78); Albumin, Blood 2.2 g/dL (3.4-5.0); Albumin/Globulin Ratio 0.7 (0.8-1.8); Alk Phos 71 U/L (50-136); Anion Gap 9 mmol/L (6-16); Aspartate Aminotrans (AST/SGOT 96 U/L (12-37); Bilirubin, Total 18.4 mg/dL (0.1-1.0); Blood Urea Nitrogen 23 mg/dL (8-24); Bun/Creatinine Ratio 43.4 (12.0-20.0); CO2, Blood 24 mmol/L (21-32); Calcium, Blood 8.4 mg/dL (8.5-10.1); Chloride, Blood 109 mmol/L (98-108); Creatinine, Blood 0.53 mg/dL (0.40-1.00); Globulin, Blood 3.2 g/dL (2.2-4.0); Glomerular Filtration Rate >60 (60-); Glucose, Blood 130 mg/dL (70-99); Sodium, Blood 142 mmol/L (136-145); Total Protein, Blood 5.4 g/dL (6.4-8.2)
--- NOTE | 2020-07-03 12:55 | NUR ---
PATIENT AFEBRILE. HR IN THE 90S. SBP IN THE LOW 100S. NO ACUTE CHANGES TO NOTE ON AT THIS TIME. WILL CONTINUE TO MONITOR.
--- NOTE | 2020-07-03 18:47 | NUR ---
SHIFT SUMMARY PATIENT HAD A COUPLE INSTANCES OF INTERMITTENT CONFUSION EARLIER IN DAY. PATIENT HAS BEEN COMPLETELY ALERT AND ORIENTED SINCE. PATIENT REMAINED AFEBRILE. PATIENT HAD NO COMPLAINTS OF PAIN. PATIENT REMAINED SATTING 90% AND GREATER ON RA. PATIENT REMAINED IN SR TO ST, HR 80S TO LOW 100S. SBP LOW 100S TO 140S. PATIENT HAD A FEW LOOSE STOOLS TODAY. PATIENT ATE BETTER AT LUNCH AND DINNER THAN AT BREAKFAST. ATTENDS IN PLACE AND CLEAN/ DRY. PATIENT REMAINED MOSTLY INCONTINENT OF URINE. PATIENT RECEIVING SCHEDULED LASIX. NO CHANGE IN SKIN. CREAM APPLIED TO BUTTOCKS/ ANUS PATIENT COMPLAINED OF SORENESS. CLINIMIX REMAINS AT 75 MLS/ HOUR. PATIENT RECEIVED FLAGYL AND ROCEPHIN. PATIENT ALSO RECEIVING FAT EMULSION AT THIS TIME. PATIENT RECEIVED 40 MEQ KCL FOR POTASSIUM OF 3.0 TODAY. PATIENT WATCHING TV IN CHAIR AT THIS TIME. PATIENT HAS NO COMPLAINTS. CALL LIGHT IN REACH. WILL BE GIVING REPORT TO ONCOMING RANGE AID NURSE SHORTLY.
--- NOTE | 2020-07-04 00:33 | NUR ---
SHIFT ASSESSMENT/ TX NOTE. PT ALERT AND ORIENTED DURING INITIAL ASSESSMENT, SITTING UPRIGHT IN THE BEDSIDE CHAIR EATING DINNER. PT CONTINUES TO BE INCONTINENT OF URINE AND STOOL, ATTENDS CHANGED BEFORE PT TX BACK TO BED c TWO PERSON SB ASSIST. CLINIMIX GTT INFUSING. PT TRANSFERRED TO MEDICAL FLOOR, PICC DRESSING CHANGED PRIOR TO PT TX.
--- NOTE | 2020-07-04 01:20 | NUR ---
Patient arrived from ICU to room 339 at 0010 this morning. No changes in physical assessment from 2019 ICU assessment. Patient is quiet and states she does not want to talk when this RN asks about the history of her illness. Patient has 3 lumen Power Picc in her left upper arm. All lines are infusing. Patient states she is uncomfortable, however does not want any medication for it. She stated she does not want to be repositioned. She just wants to sleep. VSS. Clinimix, lipids and a tko NS are all currently running on three pumps. will continue close monitoring
[2020-07-04 06:35] LABS: Albumin, Blood 2.1 g/dL (3.4-5.0); Anion Gap 8 mmol/L (6-16); Blood Urea Nitrogen 28 mg/dL (8-24); Bun/Creatinine Ratio 49.2 (12.0-20.0); CO2, Blood 24 mmol/L (21-32); Calcium, Blood 8.3 mg/dL (8.5-10.1); Chloride, Blood 108 mmol/L (98-108); Creatinine, Blood 0.57 mg/dL (0.40-1.00); Glomerular Filtration Rate >60 (60-); Glucose, Blood 113 mg/dL (70-99); Phosphorus, Blood 2.6 mg/dL (2.5-4.9); Potassium, Blood 3.6 mmol/L (3.5-5.5); Sodium, Blood 140 mmol/L (136-145)
--- NOTE | 2020-07-04 07:56 | NUR ---
Maura arrived to room 339 from ICU 8 around 0015 this morning. She was somnolent, but alert and oriented to the present. Her spouse Eusebio called shortly after she got to the floor to ask after her. He stated he was exhausted and was going to let a good friend of theirs come visit her today as he needed a break. He explained he was caring for their two kids, as well as working, and just needed a break for a few hours of rest today. I told him he had to take care of himself and ask for help when he needs it. Eusebio said he wants Maura to stay in the hospital and get well so she can come home and rest for a possible liver transplant.
--- NOTE | 2020-07-04 18:46 | NUR ---
PATIENT A/OX4, BUT CONTINUES TO HAVE INTERMITTENT CONFUSION. CONVERSATION OUT OF CONTEXT AT TIMES. SEEMS TO BE MORE WILLING THROUGOUT THE DAY TO GO TO SNF. CLINIMIX AND LIPIDS D/C'D TODAY. PATIENT ATE WELL FOR LUNCH, BUT BECAME NAUSEATED AT DINNER. ZOFRAN GIVEN TO TREAT. MULTIPLE SOFT BROWN BM'S TODAY. GENERALIZED EDEMA WITH LARGE ASCTIES ABDOMEN. SKIN JAUNDICED, SCELRA YELLOW. R EYE VERY RED, BUT PATIENT STATES IT DOESN'T BOTHER HER. 3 LUMEN PICC TO L UPPER ARM WNL AND SL. DENIES ANY PAIN THIS SHIFT. UP WITH FWW AND 1 ASSIST. FALL PRECAUTIONS IN PLACE PER UNIT PROTOCOL. COOPERATIVE WITH CARE.
--- NOTE | 2020-07-05 05:34 | NUR ---
SHIFT SUMMARY- PT. A&O, PLEASANT AND COOPERATIVE WITH CARE. MENTATION IMPROVED LAST NIGHT, ABLE TO HAVE APPROPRIATE CONVERSATION WITH PT. HAD NO COMPLAINTS OF PAIN OR DISCOMFORT T/O THE NIGHT. PT. JAUNDICED WITH ABD DISTENTION/ASCITES, AND GENERALIZED SWELLING. UP IN CHAIR FOR PART OF THE EVENING, AMBULATED BACK TO BED WITH 1 ASSIST WALKER AND GB. TOLERATED WELL. RESTED QUIETLY T/O THE NIGHT, NO APPARENT DISTRESS NOTED. VSS. CALL LIGHT WITHIN REACH AND SIDE RAILS UPX2. WILL CONT TO MONITOR.
--- NOTE | 2020-07-05 17:35 | NUR ---
SHIFT SUMMARY PT AxOx4. PLEASANT AND COOPERATIVE WITH CARE. PATIENT WORKING WITH PT AND OT TODAY. AMBULATED HALLS X3. TOLERATING PHYSICAL ACTIVITY WELL. CONTINENT AND INCONTINENT. USING BSC AND BATHROOM. GOOD APPETITE. PT STILL JAUNDICED TO THE SKIN AND SCLERA. DENIES PAIN. VITALS REVIEWED. CURRENTLY RESTING IN BED WITH CALL LIGHT IN REACH. DENIES ANY NEEDS AT THIS TIME.
--- NOTE | 2020-07-06 06:52 | NUR ---
SHIFT SUMMARY PATIENT ALERT AND ORIENTED. HAD NO COMPLAINTS OF PAIN OR SHORTNESS OF BREATH. SHE DID NO SLEEP WELL OVERNIGHT AND WENT ON SEVERAL WALKS TO SEE IF IT WOULD HELP HER BE TIRED ENOUGH TO SLEEP. PICC LINE PATENT AND FLUSHED. BED IN LOWEST POSITION WITH WHEELS LOCKED. CALL LIGHT WITHIN REACH. REPORT GIVEN TO ONCOMING RN.
[2020-07-06 08:57] LABS: Albumin, Blood 2.4 g/dL (3.4-5.0); Anion Gap 7 mmol/L (6-16); Blood Urea Nitrogen 29 mg/dL (8-24); Bun/Creatinine Ratio 50.4 (12.0-20.0); CO2, Blood 22 mmol/L (21-32); Calcium, Blood 8.8 mg/dL (8.5-10.1); Chloride, Blood 113 mmol/L (98-108); Creatinine, Blood 0.58 mg/dL (0.40-1.00); Glomerular Filtration Rate >60 (60-); Glucose, Blood 91 mg/dL (70-99); Magnesium, Blood 1.7 mg/dL (1.6-2.4); Phosphorus, Blood 2.1 mg/dL (2.5-4.9); Potassium, Blood 4.2 mmol/L (3.5-5.5); Sodium, Blood 142 mmol/L (136-145)
--- NOTE | 2020-07-06 15:03 | NUR ---
SHIFT SUMMARY PT RESTING QUIETLY AT START OF SHIFT. PER REPORT, PT DID NOT SLEEP MUCH LAST NIGHT. PT LATER REPORTED TAKING SEVERAL WALKS IN THE HICKS. PT UP TO BTHRM THIS AM BEFORE BREAKFAST, VERY EMOTIONAL AND TEARFUL. PT NOT WANTING TO SIT IN THE CHAIR FOR MEALS ORDERED BY SPEECH. PT ULTIMATELY REFUSED BREAKFAST. PT CONTINUED TO BE EMOTIONAL AND TEARFUL FOR SEVERAL MORE HOURS, EVERY TIME SHE WAS SPOKEN TO. ADMITTED FOR GIB WITH HX OF ALCOHOLIC LIVER DISEASE. PT IS VERY JAUNDICE. WEAK/DECONDITIONED, UP W/SBA USING FWW TO AMBULATE. PT LATER INSISTED ON EATING LUNCH IN BED, REFUSING TO GET UP TO CHAIR. PT ASSISTED UP IN BED WITH HOB ELEVATED TO MAX. LABS DRAWN FROM [facility]. PT REPORTS BEING CONTINENT OF URINE, BUT WAS INCONTINENT THIS AM BEFORE GOING TO BTHRM AFTER WAKING. SCD'S PLACED EACH TIME PT RETURNS TO BED. DENIES FURTHER NEEDS. CALL LT IN REACH.
--- NOTE | 2020-07-07 04:20 | NUR ---
SHIFT SUMMARY PATIENT ALERT AND ORIENTED. HAD NO COMPLAINTS OF PAIN OR SHORTNESS OF BREATH. DID NOT GET MUCH SLEEP OVERNIGHT. PICC LINE PATENT AND FLUSHED. BED IN LOWEST POSITION WITH WHEELS LOCKED AND ALARM ON. CALL LIGHT WITHIN REACH. REPORT GIVEN TO ONCOMING RN.
[2020-07-07 05:49] LABS: Hematocrit 21.6 % (33.0-51.0); Hemoglobin 7.5 g/dL (11.5-16.0); Mean Corpuscular HGB 33.6 pg (26.0-34.0); Mean Corpuscular HGB Conc 34.7 g/dL (31.5-36.5); Mean Corpuscular Volume 97 fL (80-100); Mean Platelet Volume 11.4 fL (9.1-12.4); Platelet Count 183 K/mm3 (150-400); RDW Coefficient Variation 25.4 % (11.7-14.2); RDW Standard Deviation 81.9 fL (35.1-46.3); Red Blood Cell Count 2.23 M/mm3 (3.80-5.20)
[2020-07-07 06:17] LABS: Alanine Aminotransfer (ALT/SGP 104 U/L (12-78); Albumin, Blood 2.2 g/dL (3.4-5.0); Albumin/Globulin Ratio 0.7 (0.8-1.8); Alk Phos 81 U/L (50-136); Anion Gap 8 mmol/L (6-16); Aspartate Aminotrans (AST/SGOT 93 U/L (12-37); Bilirubin, Indirect 4.1 mg/dL (0.1-0.7); Bilirubin, Total 18.1 mg/dL (0.1-1.0); Blood Urea Nitrogen 26 mg/dL (8-24); Bun/Creatinine Ratio 43.8 (12.0-20.0); CO2, Blood 22 mmol/L (21-32); Calcium, Blood 8.4 mg/dL (8.5-10.1); Chloride, Blood 112 mmol/L (98-108); Creatinine, Blood 0.59 mg/dL (0.40-1.00); Glomerular Filtration Rate >60 (60-); Glucose, Blood 93 mg/dL (70-99); Sodium, Blood 142 mmol/L (136-145); Total Protein, Blood 5.2 g/dL (6.4-8.2)
[2020-07-07 17:53] LABS: International Normalized Ratio 2.15
--- NOTE | 2020-07-07 18:54 | NUR ---
TRANSFER FROM [facility] FLOOR PT ARRIVED FROM MEDICAL FLOOR AT APPROXIMATELY 1820 VIA CART. PT ARRIVED WITH [facility] RN WHO GAVE 1800 MEDS, WITH THE EXCEPTION OF ROSALIND IT HAD NOT BEEN RECEIVED FROM PHARMACY YET. PT WAS AWAKE AND ORIENTED UPON ARRIVAL. PT IS JAUNDICED AND ON 2L O2. VS STABLE OTHERWISE. TELE IN PLACE AND CONFIRMED WITH CLINICAL TEAM LEAD, SR HR 97. PT ABD DISTENDED, MASS FELT ON THE RIGHT UPPER QUADRANT, POSSIBLE THE LIVER. PT HAD A SEIZURE REPORTED LASTING 2 MINUTES ON MEDICAL FLOOR, PRIOR TO ARRIVING TO PCU. PT HAS A PICC LINE IN THE LEFT UPPER ARM. PT IS REPORTED NEEDING A PARACENTISIS ONCE THE INR HAS DECREASED SLIGHTLY. PT IS RESTING IN BED AT THIS TIME
[2020-07-07 18:55] LABS: Hematocrit 18.1 % (33.0-51.0)
[2020-07-07 19:13] LABS: Anion Gap 9 mmol/L (6-16); Blood Urea Nitrogen 17 mg/dL (8-24); Bun/Creatinine Ratio 38.7 (12.0-20.0); CO2, Blood 16 mmol/L (21-32); Calcium, Blood 6.5 mg/dL (8.5-10.1); Chloride, Blood 122 mmol/L (98-108); Creatinine, Blood 0.44 mg/dL (0.40-1.00); Glomerular Filtration Rate >60 (60-); Glucose, Blood 111 mg/dL (70-99); Magnesium, Blood 1.3 mg/dL (1.6-2.4); Potassium, Blood 3.3 mmol/L (3.5-5.5); Prolactin 24.8 ng/mL; Sodium, Blood 147 mmol/L (136-145)
--- NOTE | 2020-07-07 21:13 | NUR ---
MD CALL CALLED DR. STRONG (SALES SUPPORT ADVISOR GI) PER ORDER TO RE-CONSULT GI. NOTIFIED OF PT CHANGES AND REASON FOR CONSULT AND DR. STRONG REQUESTED THAT I CALL DR. BLACK SINCE THIS HAS BEEN HIS PT. REACHED DR. BLACK ON CELL AND NOTIFIED OF REASON FOR FRUIT DRYER AND LAB RESULTS, INCLUDING PLAN OF TRANSFUSION TONIGHT OF [address] HEAD/ABD. NO FURTHER ORDERS, DR. BLACK WILL PLAN TO SEE THE PT IN THE AM.
--- NOTE | 2020-07-08 04:14 | NUR ---
RETAIL SALES TEAMMATE SUMMARY PT HAS REMAINED AXO X4 BUT WAS LETHARGIC AT START OF SHIFT. PT WAS TAKEN FOR HEAD/ABDOMEN CT DUE TO HEADACHE AND ABDOMEN PAIN FOLLOWING THE SEIZURE SHE HAD ON MEDICAL FLOOR. THE PT HAS REMAINED HEMODYNAMICALLY STABLE THOUGH DUE TO HGB OF 6 AND HX OF GI BLEED THE PROVIDER WAS CONTACTED AND AN ORDER FOR 2 UNITS PRBC'S WAS OBTAINED. PT WAS GIVEN PAIN AND NAUSEA MEDICATION AFTER RETURNING FROM CT AND SLEPT FOR MOST OF THE SHIFT. O2 SATS REMAIN >93% ON 2L NC. THIS AM THE PT IS MORE AWAKE AND REPORTS FEELING BETTER, 2ND UNIT OF BLOOD IS STILL TRANSFUSING. 40MG LASIX GIVEN AND PT URINE OUTPUT HAS BEEN GOOD. WCTM UNTILL REPORT GIVEN TO DAYSHIFT RN.
[2020-07-08 07:49] LABS: Hematocrit 22.1 % (33.0-51.0); Hemoglobin 7.6 g/dL (11.5-16.0)
[2020-07-08 08:13] LABS: Alanine Aminotransfer (ALT/SGP 87 U/L (12-78); Albumin, Blood 1.9 g/dL (3.4-5.0); Albumin/Globulin Ratio 0.7 (0.8-1.8); Alk Phos 73 U/L (50-136); Anion Gap 7 mmol/L (6-16); Aspartate Aminotrans (AST/SGOT 68 U/L (12-37); Blood Urea Nitrogen 24 mg/dL (8-24); Bun/Creatinine Ratio 38.9 (12.0-20.0); CO2, Blood 23 mmol/L (21-32); Calcium, Blood 7.9 mg/dL (8.5-10.1); Chloride, Blood 112 mmol/L (98-108); Creatinine, Blood 0.62 mg/dL (0.40-1.00); Globulin, Blood 2.6 g/dL (2.2-4.0); Glomerular Filtration Rate >60 (60-); Glucose, Blood 127 mg/dL (70-99); Sodium, Blood 142 mmol/L (136-145); Total Protein, Blood 4.5 g/dL (6.4-8.2)
--- NOTE | 2020-07-08 09:05 | NUR ---
UPDATE; LARGE BLOODY BM IN BEDPAN. NOTIFIED COMPUTER SYSTEMS SECURITY ADMINISTRATOR. GI CONTACTED BY BLANCA. ORDERS PLACED FOR OCTREOTIDE AND REGLAN.
--- NOTE | 2020-07-08 11:50 | NUR ---
07/08/20 1150 Shanel Cowart PATIENT SOMULENT PREPROCEDURE. SLEEPING UNLESS ARROUSED. MAC CASE WITH DR. ROUSE, SEE ANETHESIA RECORD FOR CARE.
[2020-07-08 14:48] LABS: Hematocrit 25.7 % (33.0-51.0); Hemoglobin 8.6 g/dL (11.5-16.0)
--- NOTE | 2020-07-08 16:08 | NUR ---
PT ADMITTED TO ICU FROM OR AT ~1300. PT WAS TRANSFERED TO OR DURING EGD FOR INTUBATION. PT ARRIVED INTUBATED, RT IN ROOM W VENT. DR Cervantes IN UNIT AND GAVE FULL UPDATE ON PT. DR MCFADDEN CONSULTED AND AT BEDSIDE SHORTLY AFTER ADMISSION TO ICU. VENT: 14/300/70%/5. LUNGS VERY COARSE/WET T/O W THICK, BLOODY, ETT SECRETIONS. SPUTUM SENT. PROPOFOL STARTED FOR SEDATION, INITIALLY PROPOFOL AT 15MCG D/T SOME HYPOTENSION W MAP >65. ON ADMIT ONE UNIT PBRC'S STARTED. H&H REPEATED AFTER TRANSFUSION, H&H INCREASED FROM 7.6 TO 8.6, PT TOLERATED TRANSFUSION WELL W/O ANY ADVERSE REACTIONS. ONE UNIT FFP ORDERED. PT DID WAKE UP AND WAS ABLE TO FOLLOW SIMPLE COMMANDS, VERY ANXIOUS, RESTLESS, AND TEARFUL; PT MEDICATED W FENTANYL AND ATIVAN. BP STABLE NOW, LEVOPHED IS AVAILABLE IF MAP <65. SANDOSTATIN AND PROTONIX RESTARTED IN ICU. PT HAS PICC TO [id number]. POWERGLIDE STARTED TO EDUARDO. GANN TEMP PROBE PLACED. PT INCONTINENT OF LIQUID YELLOW STOOL; FLEXISEAL PLACED. PT GIVEN PARTIAL BEDBATH. PT'S UPDATED OVER PHONE BY BAKERY AND DELI SALES MANAGER.
--- NOTE | 2020-07-08 16:58 | NUR ---
DR BLACK IN TO CHECK ON PT, UPDATE GIVEN. REGLAN GIVEN PER DR TO HELP PUSH OLD BLOOD THROUGH. PT TO RECEIVE ONE UNIT OF FFP.
--- NOTE | 2020-07-08 19:30 | NUR ---
ASSUMED CARE RECEIVED REPORT FROM SIA SOMMER. PT ON HER RIGHT SIDE, SEDATED AND INTUBATED WITH 7.0 ETT, 22 AT TEETH. VENT SETTINGS: AC 14/300/5/40%. CURRENT GTTPs: OCTREOTIDE 50 MCG/HR, PROTONIX 10 ML/HR, PROPOFOL 30 MCG/KG/MIN, AND NS TKO. RECTAL TUBE IN PLACE WITH NO OUTPUT. GANN PATENT DRAINING MINIMAL, DARK URINE. PT IS IN SINUS RHYTHM, RATE 70s; SBP ADEQUATE 90-LOW 100s, BUT DBP LOW 39-40s, AND MAP RANGING IN THE 54-60s. SPO2 96-98%, RR 18, WITH PEAK PRESSURES 19-20. AFEBRILE. BED LOW AND LOCKED.
--- NOTE | 2020-07-09 03:55 | NUR ---
UPDATE PT WOKE UP - STARTED PULLING ON RESTRAINTS, AND WAS FAIRLY CLOSE TO HER REACHING ETT. PROPOFOL WAS TURNED UP TO 50 MCG/KG/MIN AND 1 MG OF ATIVAN WAS GIVEN. WILL CONTINUE TO MONITOR, PT IS CURRENTLY SEDATED.
[2020-07-09 06:02] LABS: BASOPHILS ABSOLUTE AUTO 0.02 K/mm3 (0.00-0.23); BASOPHILS PERCENT AUTO 0 % (0-2); EOSINOPHILS ABSOLUTE AUTO 0.01 K/mm3 (0.00-0.68); EOSINOPHILS PERCENT AUTO 0 % (0-6); Hematocrit 25.6 % (33.0-51.0); Hemoglobin 8.8 g/dL (11.5-16.0); IMMATURE GRAN ABSOLUTE AUTO 0.47 K/mm3 (0.00-0.10); IMMATURE GRAN PERCENT AUTO 2 % (0-1); LYMPHOCYTES ABSOLUTE AUTO 0.94 K/mm3 (0.84-5.20); LYMPHOCYTES PERCENT AUTO 5 % (21-46); MONOCYTES ABSOLUTE AUTO 1.03 K/mm3 (0.16-1.47); MONOCYTES PERCENT AUTO 5 % (4-13); Mean Corpuscular HGB 31.8 pg (26.0-34.0); Mean Corpuscular HGB Conc 34.4 g/dL (31.5-36.5); Mean Platelet Volume 11.1 fL (9.1-12.4); NEUTROPHILS ABSOLUTE AUTO 18.09 K/mm3 (1.96-9.15); NEUTROPHILS PERCENT AUTO 88 % (41-73); Platelet Count 214 K/mm3 (150-400); RDW Coefficient Variation 25.7 % (11.7-14.2); RDW Standard Deviation 79.8 fL (35.1-46.3); Red Blood Cell Count 2.77 M/mm3 (3.80-5.20); White Blood Cell Count 20.56 K/mm3 (4.00-11.30)
[2020-07-09 06:04] LABS: Mean Corpuscular Volume 92 fL (80-100)
[2020-07-09 06:17] LABS: International Normalized Ratio 1.92; Prothrombin Time Results 19.8 Sec (9.7-11.5)
[2020-07-09 06:22] LABS: Alanine Aminotransfer (ALT/SGP 93 U/L (12-78); Albumin/Globulin Ratio 0.7 (0.8-1.8); Alk Phos 75 U/L (50-136); Anion Gap 10 mmol/L (6-16); Aspartate Aminotrans (AST/SGOT 92 U/L (12-37); Bilirubin, Total 16.3 mg/dL (0.1-1.0); Blood Urea Nitrogen 33 mg/dL (8-24); Bun/Creatinine Ratio 42.3 (12.0-20.0); CO2, Blood 21 mmol/L (21-32); Calcium, Blood 8.4 mg/dL (8.5-10.1); Chloride, Blood 111 mmol/L (98-108); Creatinine, Blood 0.78 mg/dL (0.40-1.00); Globulin, Blood 2.9 g/dL (2.2-4.0); Glomerular Filtration Rate >60 (60-); Glucose, Blood 121 mg/dL (70-99); Potassium, Blood 4.5 mmol/L (3.5-5.5); Sodium, Blood 142 mmol/L (136-145); Total Protein, Blood 4.9 g/dL (6.4-8.2)
--- NOTE | 2020-07-09 07:26 | NUR ---
END OF SHIFT/SBT/SEDATION VACATION PROPOFOL WAS TURNED DOWN TO 10 MCG/KG/MIN EARLY THIS AM, AROUND 0530 AND THE PT WAS PLACED ON SPONTANEOUS PRESSURE SUPPORT. PT HAD WOKEN UP, WAS FOLLOWING COMMANDS, AND ATTEMPTING TO COMMUNICATE WITH STAFF. SHE DID WELL DURING WEAN WITH SOME COACHING, SHE WOULD START TO INCREASE HER RR, OR SHE WOULD START TO GET A LITTLE SLEEPY. PROPOFOL WAS OFF AT THIS POINT, BUT AFTER PT STARTED TO HAVE INCREASED ANXIETY AND WAS PULLING ON RESTRAINTS MORE AND SUCH - PROPOFOL WAS TURNED ON TO 10 MCG/KG/MIN AROUND 30-45 MINS AFTER PT STARTED SPONTANEOUS MODE. PT BEGAN RESTING, WITH A CPOT OF 0-1, BUT CONTINUED TO VENTILATE ADEQUATELY (SEE RT's NOTE). CURRENT GTTPs PROPOFOL 10 MCG/KG/MIN, OCTREOTIDE 25 ML/HR, PROTONIX 10 ML/HR, LEVOPHED IS ON STANDBY (EVER SINCE PROPOFOL WAS TURNED DOWN), AND NS TKO. EDEMA HAS SEEMED TO IMPROVE IN HER UPPER EXTREMITIES. BED LOW AND LOCKED. REPORTED OF TO SIA SOMMER.
--- NOTE | 2020-07-09 11:05 | NUR ---
CARE ASSUMED OF PT AT 0700. PT SEDATED ON PROPOFOL AT 10MCG THIS AM FOR MECH VENT. PT ON SPONT BREATHING TRIAL W PRESSURE SUPPORT OF 10, FIO2 AT 30%. PT AWAKENS TO VOICE AND ABLE TO FOLLOW COMMANDS THIS AM. PROTONIX AND SANDOSTATIN GTT INFUSING. DR MCFADDEN IN THIS AM AT 0900. PT EXTUBATED AT [address] MCFADDEN. PT PLACED ON 2L O2 VIA N/C. SATS >95%. PT CALM AND RESTING IN BED. DR BLACK CALLED TO GIVE UPDATE; AWAITING RETURN CALL. PT'S UPDATED VIA PHONE W PT'S PERMISSION. NO S/S OF ACTIVE BLEED, PT STABLE AT THIS TIME.
--- NOTE | 2020-07-09 11:57 | NUR ---
DR BLACK GIVEN FULL UPDATE. TO CONTINUE SANDOSTATIN AND PROTONIX GTT, OKAY FOR CLEAR LIQUIDS. PT HAS SIGNIFICANT WEEPING EDEMA TO LEFT ABD AREA. RECTAL TUBE DC'D. SMALL AMT OF LIQUID DARK MAROON OUTPUT.
--- NOTE | 2020-07-09 14:32 | NUR ---
DR BLACK IN TO SEE PT. PT TO BE TRANSFERED TO [facility] FOR POTENTIAL LIVER TRANSPLANT. PT GIVEN SIPS OF WATER; TOLERATED WELL.
--- NOTE | 2020-07-09 18:18 | NUR ---
PT STARTING TO PASS OLD BLOOD; MODERATE AMTS OF DARK, MAROON, JELLY STOOL. PT TOLERATED CLEAR LIQUID TRAY. PT RESTING IN BED WATCHING TV, SLIGHTLY ANXIOUS ABOUT TRANSFER. PT'S WAS IN TO VISIT PT EARLIER.
--- NOTE | 2020-07-09 18:33 | NUR ---
Spiritual care note: Provided prayer and theraputic listening to pt. She expresses great love for her two dtrs and became tearful when talking about how much she misses them. She is hopeful for successful transplant and tells me she is grateful for the opportunity. She appears weak and a bit sleepy. I will remain available.
--- NOTE | 2020-07-09 19:50 | NUR ---
ASSUMED CARE RECEIVED REPORT FROM SIA SOMMER. PT IS SITTING UP IN BED - AWAKE, ALERT AND ORIENTED TO SELF, PLACE, SITUATION, AND YEAR. SHE IS MILDLY ANXIOUS R/T WAITING FOR A TRANSFER WITH NO TIME ESTIMATION OF WHEN THAT MIGHT HAPPEN. PT IS IN SINUS RHYTHM WITH A CONTROLLED RATE, AND STABLE BP (MAP > 65). PT IS ON ROOM AIR WITH SPO2 96%. AFEBRILE. RR WNL. SHE IS JAUNDICED AND EDEMATOUS T/O HER BODY. C/O OF ABDOMINAL CRAMPING. GANN IS PATENT AND DRAINING ORANGE URINE. BED LOW AND LOCKED. CALL LIGHT WITHIN REACH.
--- NOTE | 2020-07-09 22:15 | NUR ---
UPDATE PT HAS INCREASING ANXIETY ABOUT THE TRANSFER TO [facility] THAT HASN'T HAPPENED YET. SHE HAS BEEN ASKING THE SAME QUESTIONS REPEATEDLY, AND APPEARS RESTLESS. SHE STATES THAT IT IS STRESSING HER OUT, BECAUSE SHE DOESN'T KNOW WHEN IT WILL BE. SHE IS HAVING DISCOMFORT IN HER ABDOMEN INVOLVING SOME CRAMPING AND ACHING, SHE IS ON REGLAN TO HELP PROMOTE THE MOTILITY IN HER GUT. SHE HAS BEEN EDUCATED ON THE COBRA TRANFER PROCESS AND WHY SHE IS HAVING THE CRAMPING IN HER ABDOMEN. A SMALL DOSE OF ATIVAN WAS GIVEN PO TO HELP PT DEAL WITH STRESSORS, AND HELP HER SLEEP
--- NOTE | 2020-07-10 07:57 | NUR ---
TRANSFER PT LEFT ICU AT ~0045 WITH [facility] TO TRANSFER UP TO [facility]. THIS RN GAVE REPORT TO SIA STEEL AT ~1208. PT HAS STABLE VITALS, MAP > 65. THIS RN ATTEMPTED TO CONTACT , WITH NO LUCK. PT WAS ATTEMPTING TO CALL BUT COULD NOT GET AHOLD OF HIM.
== END 2020-07-10 00:45 | disposition short-term general hospital (02) | DRG 368 ==
LOC: ER 12:32 → ICUE 16:20 → PCU 16:20 → ERHOLD 16:20 → ICUE 18:08 → MEDS 07-03 23:54 → PCU 07-07 18:25 → ICUW 07-08 12:48
PROVIDERS: Internal Medicine; Internal Medicine Critical Care Medicine; Internal Medicine Pulmonary Disease; Nurse Practitioner Acute Care; Physician Assistant; Student in an Organized Health Care Education/Training Program; ADMIT Internal Medicine
PROC: 0DB48ZX Excision of Esophagogastric Junction, Via Natural or Artificial Opening Endoscopic, Diagnostic (ICD-10-PCS; 2020-06-17)
PROC: 06L38CZ Occlusion of Esophageal Vein with Extraluminal Device, Via Natural or Artificial Opening Endoscopic (ICD-10-PCS; 2020-06-19)
PROC: 05HY33Z Insertion of Infusion Device into Upper Vein, Percutaneous Approach (ICD-10-PCS; 2020-06-19)
PROC: 5A1955Z Respiratory Ventilation, Greater than 96 Consecutive Hours (ICD-10-PCS; principal; 2020-06-19 21:30)
PROC: 0DJ08ZZ Inspection of Upper Intestinal Tract, Via Natural or Artificial Opening Endoscopic (ICD-10-PCS; 2020-06-21)
PROC: 0W9G3ZZ Drainage of Peritoneal Cavity, Percutaneous Approach (ICD-10-PCS; 2020-06-25)
PROC: 06L38CZ Occlusion of Esophageal Vein with Extraluminal Device, Via Natural or Artificial Opening Endoscopic (ICD-10-PCS; 2020-07-08)
DX: K22.6 Gastro-esophageal laceration-hemorrhage syndrome (principal); R57.8 Other shock; N17.0 Acute kidney failure with tubular necrosis; G93.41 Metabolic encephalopathy; J96.00 Acute respiratory failure, unspecified whether with hypoxia or hypercapnia; I85.11 Secondary esophageal varices with bleeding; D62 Acute posthemorrhagic anemia; E87.1 Hypo-osmolality and hyponatremia; R18.8 Other ascites; E87.2 Acidosis; K56.7 Ileus, unspecified; D68.4 Acquired coagulation factor deficiency; K70.31 Alcoholic cirrhosis of liver with ascites; K92.0 Hematemesis; K70.30 Alcoholic cirrhosis of liver without ascites; Z98.890 Other specified postprocedural states; Z88.8 Allergy status to other drugs, medicaments and biological substances; E87.6 Hypokalemia; E83.42 Hypomagnesemia; Z20.822 Contact with and (suspected) exposure to COVID-19; Z98.51 Tubal ligation status; F32.9 Major depressive disorder, single episode, unspecified; F43.10 Post-traumatic stress disorder, unspecified; Z79.899 Other long term (current) drug therapy; D69.59 Other secondary thrombocytopenia; K75.81 Nonalcoholic steatohepatitis (NASH); K74.60 Unspecified cirrhosis of liver; K70.40 Alcoholic hepatic failure without coma; K70.10 Alcoholic hepatitis without ascites; K20.90 Esophagitis, unspecified without bleeding; R56.9 Unspecified convulsions; K21.00 Gastro-esophageal reflux disease with esophagitis, without bleeding
CPT/HCPCS: 0241U; 31500; 31720; 36011; 36245; 36415; 36430; 36556; 36569; 36600; 47000; 49083; 51702; 70450; 71045; 74018; 74176; 74183; 75726; 75887; 76700; 76705; 76770; 76937; 77002; 80048; 80053; 80069; 80074; 80076; 81001; 81025; 82042; 82085; 82103; 82140; 82248; 82272; 82330; 82390; 82550; 82607; 82728; 82746; 82803; 82945; 83010; 83516; 83520; 83540; 83550; 83605; 83615; 83690; 83735; 83880; 84100; 84132; 84146; 84157; 84478; 85014; 85018; 85025; 85027; 85049; 85379; 85384; 85610; 85730; 86038; 86256; 86850; 86900; 86901; 86923; 87040; 87070; 87077; 87086; 87106; 87186; 87205; 87497; 87517; 87522; 87529; 87798; 88307; 88313; 89051; 92523; 92526; 92610; 93005; 93010; 94002; 94003; 94667; 94760; 96361; 96374; 96375; 96376; 97110; 97116; 97162; 97166; 97530; 97535; 99285-25; A9270; A9581; C1751; C1760; C1769; C1887; C1894; C9113; G0480; J0132; J0171; J0330; J0610; J0696; J1430; J1644; J1940; J1953; J2001; J2060; J2250; J2354; J2370; J2405; J2543; J2704; J2765; J2920; J3010; J3411; J3430; J3475; J3480; J7030; J7040; J7050; J7060; J7070; J7120; P9012; P9016; P9035; P9041; P9046; P9059; Q9967

== ENCOUNTER 2020-07-23 04:21 | Inpatient (IN) | payer OTHER ==
[~2020-07-23] VITALS: Ht 162.6 cm; Wt 95.7 kg
[~2020-07-23 04:21] MED LIST changes: +OMEP20ER PO
[2020-07-23] MEDS ORDERED: Atarax10 MG PO (04:36)
[2020-07-23 04:47] LABS: BASOPHILS ABSOLUTE AUTO 0.05 K/mm3 (0.00-0.23); BASOPHILS PERCENT AUTO 0 % (0-2); EOSINOPHILS ABSOLUTE AUTO 0.56 K/mm3 (0.00-0.68); EOSINOPHILS PERCENT AUTO 3 % (0-6); Mean Platelet Volume 11.9 fL (9.1-12.4); NRBC ABSOLUTE 0.03 K/mm3 (0.00-0.02); NRBC Auto 0.1 /100 WBC (0.0-0.2); Platelet Count 283 K/mm3 (150-400); White Blood Cell Count 21.55 K/mm3 (4.00-11.30)
[2020-07-23 05:02] LABS: IMMATURE GRAN ABSOLUTE AUTO 0.57 K/mm3 (0.00-0.10); IMMATURE GRAN PERCENT AUTO 3 % (0-1); LYMPHOCYTES ABSOLUTE AUTO 3.63 K/mm3 (0.84-5.20); LYMPHOCYTES PERCENT AUTO 17 % (21-46); MONOCYTES ABSOLUTE AUTO 1.54 K/mm3 (0.16-1.47); MONOCYTES PERCENT AUTO 7 % (4-13); Mean Corpuscular HGB 34.5 pg (26.0-34.0); Mean Corpuscular HGB Conc 35.4 g/dL (31.5-36.5); Mean Corpuscular Volume 97 fL (80-100); NEUTROPHILS PERCENT AUTO 71 % (41-73); Red Blood Cell Count 1.48 M/mm3 (3.80-5.20)
[2020-07-23 05:03] LABS: Hematocrit 14.4 % (33.0-51.0); Hemoglobin 5.1 g/dL (11.5-16.0)
[2020-07-23 05:09] LABS: International Normalized Ratio 2.28; Prothrombin Time Results 23.3 Sec (9.7-11.5)
[2020-07-23 05:28] LABS: Alanine Aminotransfer (ALT/SGP 33 U/L (12-78); Albumin, Blood 1.5 g/dL (3.4-5.0); Albumin/Globulin Ratio 0.5 (0.8-1.8); Alk Phos 85 U/L (50-136); Anion Gap 12 mmol/L (6-16); Aspartate Aminotrans (AST/SGOT 48 U/L (12-37); Bilirubin, Total 21.5 mg/dL (0.1-1.0); Blood Urea Nitrogen 50 mg/dL (8-24); Bun/Creatinine Ratio 17.7 (12.0-20.0); CO2, Blood 18 mmol/L (21-32); Calcium, Blood 7.6 mg/dL (8.5-10.1); Chloride, Blood 100 mmol/L (98-108); Creatinine, Blood 2.83 mg/dL (0.40-1.00); Ethanol (Alcohol), Blood, Med <3 mg/dL; Globulin, Blood 2.8 g/dL (2.2-4.0); Glomerular Filtration Rate 21 (60-); Glucose, Blood 115 mg/dL (70-99); Potassium, Blood 3.4 mmol/L (3.5-5.5); Sodium, Blood 130 mmol/L (136-145); Total Protein, Blood 4.3 g/dL (6.4-8.2)
[2020-07-23] MEDS ORDERED: MULVITA PO (06:24)
[2020-07-23 06:36] LABS: Influenza A, PCR NEGATIVE (NEGATIVE); Influenza B, PCR NEGATIVE (NEGATIVE); Resp Syncytial Virus, PCR NEGATIVE (NEGATIVE); SARS-Cov-2 (COVID-19) PCR, MMC NEGATIVE (NEGATIVE)
--- NOTE | 2020-07-23 07:13 | NUR ---
PT ARRIVES TO ICU 11 VIA GURNEY FROM ER AT 0600 THIS AM. SHE IS ALERT AND ORIENTED ON ARRIVAL TO UNIT AND STATES THAT SHE BEGAN VOMITING BLOOD AT 0400 THIS AM, SHE DOES STATE THAT SHE "SPIT UP" A SMALL AMOUNT OF BLOOD YESTERDAY. SHE C/O PAIN TO RIGHT UPPER QUADRANT THAT IS SHARP IN NATURE AND BEGAN AT 0400 THIS AM JUST PRIOR TO VOMITING, DR STRONG ARRIVES TO UNIT JUST PRIOR TO PATIENT. PRESSURES ARE NOTED HYPOTENSIVE, CLARIFIED WITH C D REACTOR OPERATOR THAT NO BOLUS WAS GIVEN IN ER ER MD DID NOT WANT BOLUS INFUSED, DISCUSSED WITH DR STRONG AND ORDERS FOR 2 MORE UNITS PRBCS TO TRANSFUSE WELL NS AT 200 ML/HR. LUNGS CLEAR WITH DIM BASES BILAT, SATS MAINTAINING ON ROOM AIR, RESP SHALLOW RATE 20S. SKIN IS MARKEDLY JAUNDICED, EDEMA IS NOTED TO LOWER EXTREMITIES AND TRUNK, ARMS ARE WITHOUT EDEMA, ABD DISTENDED, HYPOACTIVE BOWEL TONES. LEVOPHED WAS STARTED PER HOSPITALIST AT 2 MCG/MIN AND TITRATED FOR MAP LESS THAN 65, RATE IS 6 MCG/MIN AT TIME OF REPORT.
--- NOTE | 2020-07-23 07:15 | NUR ---
Received repprt from Purnima STOVALL. Patient awake and alert and is able to communicate her needs. She is on RA and sats 99%.She is receiving [address] Esteban. Patient has Levophed infusing at 8mcg/min and increased to 10 mcg/min for MAP<60. She has bilateral AC IV's 18ga LAC infusing Levophed, The RAC 16ga infusing Octreotide that i have placed on stadby to start 2 PRBC at same time. Abdomen large and distended and pain to palp. She is nauseated and getting meds per MAR.
--- NOTE | 2020-07-23 08:30 | NUR ---
Increased Levophed to 15, Started PICC line in KRZYSZTOF and transferred Levophed to PICC. Dr Gandhi consulted and we are going to intubate prior to scope. called and notified. Blood rate increased to 250 ml/hr.
--- NOTE | 2020-07-23 08:58 | NUR ---
DR STRONG UPDATED UPDATED ON MASS TRANSFUSION, BLOOD PRESSURE, PRESSOR REQUIREMENTS. PLANS TO FINISH PROCEDURE AND COME TO UNIT.
--- NOTE | 2020-07-23 08:59 | NUR ---
UPDATED SPOUSE UPDATED SPOUSE ON EVENTS OF MORNING. NOW QUESTIONS.
[2020-07-23 09:02] LABS: Hematocrit 22.5 % (33.0-51.0); Hemoglobin 7.9 g/dL (11.5-16.0); Mean Corpuscular HGB 31.1 pg (26.0-34.0); Mean Corpuscular HGB Conc 35.1 g/dL (31.5-36.5); Mean Platelet Volume 11.6 fL (9.1-12.4); NRBC ABSOLUTE 0.04 K/mm3 (0.00-0.02); NRBC Auto 0.2 /100 WBC (0.0-0.2); Platelet Count 247 K/mm3 (150-400); RDW Standard Deviation 59.1 fL (35.1-46.3); Red Blood Cell Count 2.54 M/mm3 (3.80-5.20); White Blood Cell Count 26.28 K/mm3 (4.00-11.30)
[2020-07-23 09:04] LABS: Mean Corpuscular Volume 89 fL (80-100)
[2020-07-23 09:19] LABS: International Normalized Ratio 2.43; Prothrombin Time Results 24.7 Sec (9.7-11.5)
[2020-07-23 09:27] LABS: Source, Urine Catheter
[2020-07-23 09:29] LABS: BAND PERCENT MAN 9 % (0-8); BASOPHILS PERCENT MAN 0 % (0-2); EOSINOPHILS ABSOLUTE MAN 0.26 K/mm3 (0.00-0.68); EOSINOPHILS PERCENT MAN 1 % (0-6); LYMPHOCYTES ABSOLUTE MAN 4.73 K/mm3 (0.84-5.20); LYMPHOCYTES PERCENT MAN 18 % (21-46); MONOCYTES ABSOLUTE MAN 1.57 K/mm3 (0.16-1.47); MONOCYTES PERCENT MAN 6 % (4-13); MYELOCYTE ABSOLUTE MAN 0.78 K/mm3 (0.00-0.00); MYELOCYTE PERCENT MAN 3 % (0-0); NEUTROPHILS ABSOLUTE MAN 18.92 K/mm3 (1.96-9.15); SEG NEUTROPHILS PERCENT MAN 63 % (41-73); TOTAL CELLS COUNTED 100
[2020-07-23 09:58] LABS: Base Excess Venous -11.6 mmol/L; PCO2 Venous 29.8 mmHg (38-42); PO2 Venous 46.8 mmHg (38-42)
--- NOTE | 2020-07-23 10:00 | NUR ---
Patient intubated with 8.0 ET with etomidate 20 mg and then another 10 mg with 20 mg Rocironium. Tube 24 cm at teeth and vent settingsAC 14, TV 350, FiO2 40% and PEEP 5 with sats >95%, Started on Propofol at 30 mcg/kg/min and shortly increased to 50 mcg/kg/min and 2 doses Fentanyl 50 mcg. Adjusted PICC line 3 cm after Patient had run Vtach and corrected after. Scope team arriveing with equipment. We have added Vasopressin and systolics 100-120.
[2020-07-23 10:02] LABS: Appearance, Urine Hazy (Clear); Blood, Urine 1+ (Neg); Color, Urine Amber (P-Yellow); Glucose Qualitative, Urine Neg (Neg); Ketones, Urine Neg (Neg); Leukocyte Esterase, Urine 2+ (Neg); Nitrite, Urine Pos (Neg); Protein, Urine 2+ (Neg); Specific Gravity, Urine 1.015 (1.003-1.022); Urobilinogen, Urine 2+ (Normal)
--- NOTE | 2020-07-23 10:15 | NUR ---
PT PREOPED IN ICU. History, Chart, Medications and Allergies reviewed before start of procedure. Lungs clear T/O to Auscultation. TIRE TESTER STATES NPO STATUS.
[2020-07-23 10:17] LABS: Bilirubin, Urine 3+ (Neg)
--- NOTE | 2020-07-23 10:21 | NUR ---
DR. STRONG OBTAINED CONSENT VIA PHONE FROM PT'S , SIA HORTON WITNESSED.
[2020-07-23 10:22] LABS: Squamous Epithelial Cells Many /hpf (Few)
[2020-07-23 10:23] LABS: Bacteria Mod /hpf; Transitional Epithelial Cells Few /hpf (0-Rare)
[2020-07-23 10:24] LABS: WBC Cast 0-2 /lpf (0)
--- NOTE | 2020-07-23 10:32 | NUR ---
07/23/20 1032 SOL GALEAS History, Chart, Medications and Allergies reviewed before start of procedure. 3-LEAD EKG REVIEWED WITH PHYSICIAN PRIOR TO START OF PROCEDURE. PT INTUBATED. MONITOR INTACT WITH CONTINUOUS PULSE OXIMETRY AND INTERMITTENT BP.
--- NOTE | 2020-07-23 11:30 | NUR ---
5th and 6th unit PRBC and mass infused and 1st FFP and 1st Platlets infused. Scope team placeing [place] tube and set at 30 mmHg and depth at 40 with 2 lbs of traction. VSS with set gtt's. Dr Esteban had us call to talk with and he is on his way in.
[2020-07-23 12:29] LABS: Hematocrit 16.3 % (33.0-51.0)
[2020-07-23 12:32] LABS: Hemoglobin 5.8 g/dL (11.5-16.0)
[2020-07-23 12:35] LABS: International Normalized Ratio 2.22; Prothrombin Time Results 22.7 Sec (9.7-11.5)
[2020-07-23 12:43] LABS: Calcium, Blood 7.9 mg/dL (8.5-10.1); Creatinine, Blood 2.61 mg/dL (0.40-1.00); Potassium, Blood 3.9 mmol/L (3.5-5.5)
--- NOTE | 2020-07-23 13:30 | NUR ---
Patient resting on sedation, no vent setting changes. Octreotide restarted at 25ml/hr, Vasopressin 0.04 units/min, levophed 20 mcg/min, Propofol at 50 mcg/kg/min and transfused units 7&8 PRBC. [place] tube remains at 30 mmHg and between 35 and 40 on tube fernandes. Applied suctions and minimal blood 5cc.
[2020-07-23 14:53] LABS: Hematocrit 24.5 % (33.0-51.0); Hemoglobin 8.8 g/dL (11.5-16.0)
--- NOTE | 2020-07-23 16:32 | NUR ---
Patient had large BM of clotted blood, gave quick bath and changed linen and performed oral care. Vent settings AC 14, TV 350, FiO2 35%, PEEP 5.0, [place] to at [address] Esteban to let him know of the change and he stated it was OK and is at 30-35 mmHg and remains at 2 lb of traction. Cortis placed earlier in right groin c/d/i and has been flushed post rapid infusion, cleaned and new cap after bath with dressing change. Patient continues with 3+ edema LE and juadice in color. PICC line infuaing Levophed at 25 mcg/min, Vasopressin at 0.04 units min, Propofol at 50 mcg/kg/min, Octreotid at 25 ml/hr and Protonix at 10ml/hr. Dr soares stated no more infusions and monitor H&H at 1999. gave report to Ellen STOVALL.
--- NOTE | 2020-07-23 17:23 | NUR ---
ASSUMED CARE.... ASSUMED CARE OF PT AT 1630, PT IS INTUBATED AND SEDATED, VENT SETTINGS ARE AC: 14/350/5/30% PT'S O2 SATS>90%. PT IS ON 50MCG/KG OF PROPOFOL. PT HAS PICC LINE IN THE KRZYSZTOF AND A CORDIS TO THE RIGHT GROIN. PT HAS LEVOPHED RUNNING AT 25MCG/MIN, VASOPRESSIN RUNNING AT 0.04U/MIN KEEPING MAPS >65. PROTONIX RUNNING PER ORDERS, SANDOSTATIN RUNNING PER ORDERS. [place] TUBE IN PLACE, HANGING WITH 2LB WT PER ORDERS. [place] TUBE IS 35 AT THE TEETH. PRESSURE IN ESOPHAGEAL SECTION OF THE [place] TUBE IS 30-35 mmHG WHICH IS THE GOAL PER DR. STRONG. THE GASTRIC BALOON PRESSURE WAS MEASURED AT 85mmGH, DR. STRONG CALLED AND NOTIFIED OF THE MEASUREMENTS, PER DR. STRONG THESE ARE ACCEPTABLE NUMBERS, THE ESOPHAGEAL PRESSURE IS TO BE MAINTAINED AT 30-35 AND NO LOWER. GANN IS PATENT AND DRAINING CLEAR DARK YELLOW URINE TO GRAVITY. WILL CONTINUE TO MONITOR.
--- NOTE | 2020-07-23 18:56 | NUR ---
PT UPDATE.... THIS RN WAS IN THE ROOM DOING LAST ASSESSMENT. THE TONE ARTIST APPRENTICE NOTED THAT THE PT HAD HAD A LARGE LOOSE BLACK/RED BM WITH SMALL TO MED CLOTS. THIS WAS CLEANED UP WITH 4 STAFF PRESENT TO HELP TURN AND 1 TO MONITOR THE [place] TUBE. ONCE THIS WAS CLEANED UP THE PRESSURE IN THE [place] TUBE WAS CHECKED IN THE GASTRIC BALOON AND THE ESOPHEGEAL BALOON, THE GASTRIC BALOON PRESSURE WAS 82, THE ESOPHEGEAL BALOON PRESSURE WAS AT 28-26mmHG, THIS WAS INCREASED TO 36mmHG PER DR. STRONG'S ORDERS TO KEEP IT ABOVE 30mmGH. WILL CONTINUE TO MONITOR UNTIL REPORT IS GIVEN.
--- NOTE | 2020-07-23 19:00 | NUR ---
ASSUMED CARE OF PT, BEDSIDE REPORT RECEIVED FROM BOTH ABDIRASHID RN AND TALI RN, DR STRONG IS AT BEDSIDE REVIEWING PLAN OF CARE FOR THIS SHIFT WITH CORPORATE TAX MANAGER LITO WELL THIS RN. PT IS NOTED SEDATED WITH PROPOFOL AT 45 MCG/KG/MIN, OTHER GTTS NOTED ARE LEVOPHED AT 25 MCG/MIN, SANDOSTATIN AT 25 ML/HR, PROTONIX AT 10 ML/HR, NS AT 20 ML/HR, AND VASOPRESSIN AT 0.04 UNITS/MIN. VENT SETTINGS ARE NOTED AC 14, TV 350, FIO2 30% AND PEEP 5.0, SATS ARE MAINTAINING UPPER 90S, CURRENT RATE MID 20S, TIDAL VOLUMES ARE BETWEEN 350 AND 400 AT THIS TIME. SINUS RHYTHM NOTED ON MONITOR, RATE 90S, PRESSURES ARE SOFT, MAP MAINTAINING, OFFGOING RN REPORTS RECENT TITRATION OF PROPOFOL FOR HYPOTENSION, REVIEWED PLAN TO MAINTAIN STRICT CONTROL OF BP WITH DR STRONG. [place] TUBE IS NOTED IN PLACE 35 AT LIP, WITH 2 LB WEIGHT APPLIED FOR TRACTION, PRESSURE IN ESOPHAGEAL BALLOON IS 30-34, PRESSURE IN GASTRIC BALLOON IS 82, SUCTION BRIEFLY APPLIED TO ASPIRATE PORTS AND THEY ARE NONPRODUCTIVE AT THIS TIME, WILL CONT SPOT CHECKS PER DR STRONG. ABD IS DISTENDED, HYPOACTIVE BOWEL TONES ARE NOTED, SOFT TO LIGHT PALPATION. TEMP PROBE GANN IN PLACE, MINIMAL URINE OUTPUT AT THIS TIME, WILL MONITOR. PICC LINE IN PLACE TO LEFT UPPER ARM, DRESSING CDI, SITE WNL. CORDIS TO RIGHT GROIN, DRESSING CDI, SITE WNL. WILL PLAN TO CLOSELY MONITOR [place] TUBE POSITION, PLAN FOR AT LEAST 4 STAFF PRESENT AT BEDSIDE FOR TURNS WITH 1 STAFF MEMBER DEDCIATED TO MONITORING TUBE POSITION THROUGHOUT REPOSITIONING, CHECK PRESSURES BEFORE AND AFTER TURNS. AT THIS TIME, DR STRONG'S PLAN IS TO DECREASE ESOPHAGEAL BALLOON PRESSURE BY 5 AT 2300 AND RECHECK H&H AT 0100, IF STABLE, THEN DECREASE ESOPHAGEAL BALLOON PRESSURE BY 5 AGAIN AT 0300 AND RECHECK H&H AT 0500, IF ANY DROP IN H&H OR SIGNS OF BLEEDING ARE NOTED, REINFLATE TO 30-35 AND MAINTAIN FOR THE REST OF THIS SHIFT.
[2020-07-23 20:23] LABS: Hematocrit 25.7 % (33.0-51.0); Hemoglobin 9.5 g/dL (11.5-16.0)
[2020-07-23 21:07] LABS: International Normalized Ratio 2.22; Prothrombin Time Results 22.7 Sec (9.7-11.5)
--- NOTE | 2020-07-23 22:30 | NUR ---
SPOKE WITH DR STRONG REGARDING 2000 H&H RESULTS AND TIME OF LAST TRANSFUSION, PLAN OF CARE IS NOW TO WAIT TO DECREASE PRESSURE IN ESOPHAGEAL BALLOON BY 5 UNTIL 0100, RECHECK H&H AT 0300, IF H&H DECREASES THEN REINFLATE ESOPHAGEAL BALLOON TO 30-35 AND MAINTAIN FOR THE REST OF THIS SHIFT, IF HGB IS BETWEEN 6 AND 7 WILL PLAN TO TRANSFUSE 1 UNIT PRBCS, IF LESS THAN 6, THEN TRANSFUSE 2 UNITS PRBCS.
--- NOTE | 2020-07-24 01:32 | NUR ---
[place] TUBE PRESSURE IN ESOPHAGEAL BALLOON DECREASED PER ORDERS TO 26-30 AT THIS TIME. WILL MONITOR
[2020-07-24 03:33] LABS: BASOPHILS ABSOLUTE AUTO 0.17 K/mm3 (0.00-0.23); BASOPHILS PERCENT AUTO 1 % (0-2); Hematocrit 24.8 % (33.0-51.0); Hemoglobin 9.2 g/dL (11.5-16.0); LYMPHOCYTES ABSOLUTE AUTO 5.35 K/mm3 (0.84-5.20); LYMPHOCYTES PERCENT AUTO 19 % (21-46); MONOCYTES ABSOLUTE AUTO 2.65 K/mm3 (0.16-1.47); MONOCYTES PERCENT AUTO 10 % (4-13); Mean Corpuscular HGB 30.8 pg (26.0-34.0); Mean Corpuscular HGB Conc 37.1 g/dL (31.5-36.5); Mean Platelet Volume 11.3 fL (9.1-12.4); NRBC ABSOLUTE 0.03 K/mm3 (0.00-0.02); NRBC Auto 0.1 /100 WBC (0.0-0.2); Platelet Count 180 K/mm3 (150-400); RDW Standard Deviation 48.1 fL (35.1-46.3); Red Blood Cell Count 2.99 M/mm3 (3.80-5.20); White Blood Cell Count 27.85 K/mm3 (4.00-11.30)
[2020-07-24 03:38] LABS: EOSINOPHILS ABSOLUTE AUTO 0.74 K/mm3 (0.00-0.68); EOSINOPHILS PERCENT AUTO 3 % (0-6); IMMATURE GRAN ABSOLUTE AUTO 1.58 K/mm3 (0.00-0.10); IMMATURE GRAN PERCENT AUTO 6 % (0-1); Mean Corpuscular Volume 83 fL (80-100); NEUTROPHILS ABSOLUTE AUTO 17.36 K/mm3 (1.96-9.15); NEUTROPHILS PERCENT AUTO 62 % (41-73)
[2020-07-24 03:53] LABS: BAND PERCENT MAN 9 % (0-8); BASOPHILS ABSOLUTE MAN 0.27 K/mm3 (0.00-0.23); BASOPHILS PERCENT MAN 1 % (0-2); EOSINOPHILS ABSOLUTE MAN 0.83 K/mm3 (0.00-0.68); EOSINOPHILS PERCENT MAN 3 % (0-6); LYMPHOCYTES ABSOLUTE MAN 3.62 K/mm3 (0.84-5.20); LYMPHOCYTES PERCENT MAN 13 % (21-46); METAMYELOCYTE ABSOLUTE MAN 0.83 K/mm3 (0.00-0.00); METAMYELOCYTE PERCENT MAN 3 % (0-0); MONOCYTES ABSOLUTE MAN 2.22 K/mm3 (0.16-1.47); MONOCYTES PERCENT MAN 8 % (4-13); MYELOCYTE ABSOLUTE MAN 0.55 K/mm3 (0.00-0.00); MYELOCYTE PERCENT MAN 2 % (0-0); NEUTROPHILS ABSOLUTE MAN 19.49 K/mm3 (1.96-9.15); SEG NEUTROPHILS PERCENT MAN 61 % (41-73); TOTAL CELLS COUNTED 100
[2020-07-24 04:04] LABS: Albumin, Blood 1.4 g/dL (3.4-5.0); Albumin/Globulin Ratio 0.7 (0.8-1.8); Bilirubin, Total 18.9 mg/dL (0.1-1.0); Calcium, Blood 7.8 mg/dL (8.5-10.1); Creatinine, Blood 3.05 mg/dL (0.40-1.00); Globulin, Blood 2.1 g/dL (2.2-4.0); Potassium, Blood 3.7 mmol/L (3.5-5.5); Total Protein, Blood 3.5 g/dL (6.4-8.2)
[2020-07-24 04:11] LABS: International Normalized Ratio 2.12; Prothrombin Time Results 21.7 Sec (9.7-11.5)
--- NOTE | 2020-07-24 06:41 | NUR ---
PT REMAINS SEDATED AND INTUBATED THROUGHOUT SHIFT, NO CHANGES TO VENTILATOR SETTINGS, RESP RATE HAS INCREASED TO HIGH 20S OF THIS TIME HOWEVER SEDATION HAS BEEN TITRATED DOWN THROUGHOUT SHIFT IN AN ATTEMPT TO BE ABLE TO DECREASE PRESSOR REQUIREMENTS BUT THIS WAS UNSUCCESSFUL. PTS LEVOPHED REQUIREMENTS HAVE INCREASED TO 26 MCG/MIN FROM INITIAL RATE OF 25 MCG/MIN, DISCUSSED PT'S URINE OUTPUT WELL CONTINUED HYPOTENSION WITH SEDATION TITRATION, JONI-SYNEPHRINE STARTED INFUSING AND FLUID BOLUS OF 1 LITER WAS ADMINISTERED, PRESSURES ARE IMPROVED BUT HAVE NOT YET BEEN ABLE TO DECREASE LEVOPHED. PT DOES GRIMACE WITH NOXIOUS STIMULI AND COUGHS WITH REPOSITIONING OTHERWISE PT IS NOTED TO REST QUIETLY. [place] TUBE REMAINS IN PLACE MEASUREMENT OF 35 AT LIP, EFFORTS MADE FREQUENTLY TO MINIMIZE PRESSURE AND CHANGE POSITION OF WHERE THE [place] TUBE CONTACTS UPPER LIP DUE TO CONCERN FOR PRESSURE RELATED INJURY, TUBE IS NOTED WITH EACH ATTEMPT TO RETURN TO INITIAL POSITION, ON OCCASION UPPER LIP IS NOTED PINCHED BETWEEN [place] TUBE AND ETT SECUREMENT DEVICE. PRESSURE ESOPHAGEAL BALLON WAS DECREASED FROM 30-35 DOWN TO 26-[address] STRONG, PRESSURES HAVE BEEN MONITORED PRIOR TO AND AFTER EACH POSITION CHANGE WELL SPOT CHECKS BETWEEN POSITION CHANGES. ESOPHAGEAL AND GASTRIC ASPIRATION PORTS ARE BOTH NONPRODUCTIVE WHEN LOW SUCTION IS APPLIED TO ASSESS FOR BLEEDING. DARK MAROON/BLACK TARRY LOOSE MED BM X 2 THIS SHIFT, LAST JUST PRIOR TO MIDNOC ASSESSMENT. 4 STAFF PRESENT AT EACH POSITION CHANGE WITH 1 PERSON ASSIGNED TO MANAGEMENT OF [place] TUBE THROUGHOUT POSITION CHANGE. TEMP PROBE GANN PRODUCTIVE OF 40 ML TOTAL URINE THIS SHIFT. WILL CONT TO MONITOR AND REPORT OFF TO DAY SHIFT.
--- NOTE | 2020-07-24 10:47 | NUR ---
CASE CONFERNECE WITH IDT MEETING AND PT'S RN, ELAINA PRIOR TO MY VISIT TO ROOM. Pt is ventilated and [place] tube in place. RR 32-36 while I am at bedside. Pt has pressors to support BP and medication for sedation and comfort being used. Pt appears comfortable. She is unresponsive to voice or touch. She is deeply jaundiced. Per Dr, Hgb is stable. Concern voiced for removal of Minn tube today and oliguria. After update from pt's RN, phone call made to pt's for support and to give him an update. He had called in earlier this am and RN had not had a chance to return call with update. I gave Eusebio clinical update and asked if he had a good understanding of pt's prognosis and worsening condition. He stated, "yes, Dr Esteban told me they would do all they could but that this is probably it" Code status addressed with Eusebio and he is agreeable to DNR at this time. Update given to both pt's Drs and RN. VO for DNR entered. RN to call when details known about removal of MN tube, per his request. Jones was given permisison & encouraged to come in & visit when poss. RN to alert screeners to allow him in. Jones was reassured that we would cont to do all we could to restore Maura's health. He verbalizes a much more realistic understanding of Maura's prognosis than he did while she was here on her previous admission. Pal Care to cont to follow for support.
--- NOTE | 2020-07-24 11:29 | NUR ---
AM NOTE... ASSUMED CARE OF PT AT 0700, PT IS INTUBATED AND SEDATED ON PROPOFOL AT 25MCG. PT IS ON LEVOPHED AT 26MCG/MIN, VASOPRESSIN, AND JONI AT 20MCG/MIN WITH MAPS >60. PT'S VENT SETTINGS AT THE START OF THIS SHIFT WERE AC:14/350/5/35% WITH O2 SATS >90%, RR IN THE 20'S TO LOW 30'S. ET TUBE IS 8.0 AND 22 TO THE TEETH. L/S COARSE T/O DIM ON THE UPPER RIGHT SIDE AND DIM IN BILAT BASES. BT PRESENT AND VERY HYPOACTIVE, ABD HAS MILD DISTENTION AND IS MORE FIRM TO PALP THAT IT WAS YESTERDAY. PT HAS 3+ PITTING EDEMA TO THE TOPS OF HER FEET, 2+ TO HER BLE. PT'S SKIN AND SCLERA ARE VERY JAUNDICED. PICC LINE IN THE KRZYSZTOF IS PATENT. [place] TUBE IS PRESENT AND AT 35 AT HER MOUTH. THE [place] TUBE IS HELD TO 1KG OF TRACTION. THE LIP THAT THE TUBE IS SET AGAINST HAS A SMALL RED AREA, THE PRESSURE WAS MOVED AWAY FROM THIS AREA BY THIS RN. THE ESOPHOGEAL BALOON PRESSURE WAS 26-32, THE GASTRIC BALOON PRESSURE WAS 88. ORAL SUCTION WAS NOTED TO HAVE A SMALL AMOUNT OF DARK RED BLOOD MIXED WITH CLEAR THIN ORAL SECRETIONS. DR. STRONG CALLED AND UPDATED ON AM ASSESSMENT FINDINGS. AT APROX 1030 PT'S RR INCREASED TO THE HIGH 30'S MID 40'S AND HER O2 SATS STARTED TO DROP DOWN TO 88-90%. RT CALLED, PT'S FIO2 WAS INCREASED FROM 35% TO 40% AND DR. DAILEY NOTIFIED, NEW ORDER FOR FENTANYL WAS OBTAINED AND THIS WAS GIVEN. THIS IMPROVED HER RR DOWN TO THE LOW 30'S. PT'S HAD A CARE CONFRENCE WITH PALLIATIVE CARE RN BRIANNA, PER THE PT'S THE PT IS NOW A DNR. PURPLE DNR WRIST BAND IS IN PLACE TO THE LEFT WRIST. WILL CONTINUE TO MONITOR.
[2020-07-24 12:14] LABS: Hematocrit 23.7 % (33.0-51.0); Hemoglobin 8.8 g/dL (11.5-16.0); Mean Corpuscular HGB 31.1 pg (26.0-34.0); Mean Corpuscular HGB Conc 37.1 g/dL (31.5-36.5); Mean Corpuscular Volume 84 fL (80-100); Mean Platelet Volume 12.1 fL (9.1-12.4); NRBC ABSOLUTE 0.03 K/mm3 (0.00-0.02); NRBC Auto 0.1 /100 WBC (0.0-0.2); Platelet Count 180 K/mm3 (150-400); RDW Coefficient Variation 17.5 % (11.7-14.2); RDW Standard Deviation 50.3 fL (35.1-46.3); Red Blood Cell Count 2.83 M/mm3 (3.80-5.20); White Blood Cell Count 28.06 K/mm3 (4.00-11.30)
[2020-07-24 13:03] LABS: BAND PERCENT MAN 7 % (0-8); BASOPHILS PERCENT MAN 0 % (0-2); EOSINOPHILS ABSOLUTE MAN 0.56 K/mm3 (0.00-0.68); EOSINOPHILS PERCENT MAN 2 % (0-6); LYMPHOCYTES ABSOLUTE MAN 4.77 K/mm3 (0.84-5.20); LYMPHOCYTES PERCENT MAN 17 % (21-46); METAMYELOCYTE ABSOLUTE MAN 0.28 K/mm3 (0.00-0.00); METAMYELOCYTE PERCENT MAN 1 % (0-0); MONOCYTES ABSOLUTE MAN 1.12 K/mm3 (0.16-1.47); MONOCYTES PERCENT MAN 4 % (4-13); MYELOCYTE ABSOLUTE MAN 0.28 K/mm3 (0.00-0.00); MYELOCYTE PERCENT MAN 1 % (0-0); NEUTROPHILS ABSOLUTE MAN 21.04 K/mm3 (1.96-9.15); SEG NEUTROPHILS PERCENT MAN 68 % (41-73); TOTAL CELLS COUNTED 100
--- NOTE | 2020-07-24 17:36 | NUR ---
Spiritual care note: I met with spouse, Eusebio, at bedside. He told me about Maura's rough childhood and her estrangement from her mother. Eusebio repeats that he does not understand why "she is this bad. She doesn't drink that much." He verbalizes understanding that "she probably won't get better. I've been told this may be the end for her." He does not know what to tell their 2 young dtrs. I made some recommendations that were well recieved. Pt and family non-christianity, but Eusebio responded well to emotional affirmation, theraputic listening, and gentle senior counsel commercial. He was clearly and understandably upset. He told me he believes she is suffering. "If there is no hope, she would'nt want all this." I will remain available.
--- NOTE | 2020-07-24 18:21 | NUR ---
SHIFT SUMMARY... PT CONTINUES TO BE INTUBATED AND SEDATED WITH THE [place] TUBE IN PLACE AT 35. AT 1400 THE PRESSURE OF THE ESOPHOGEAL BALOON WAS DECREASED FROM 30 TO 25mmHG. DURING ORAL CARE SHORTLY AFTER THIS PRESSURE DECREASE THERE WAS A SMALL AMOUNT OF BLOOD WITH SOME SMALL CLOTS THAT WAS SUCTIONED FROM THE BACK OF THE PT'S MOUTH. PT'S VENT SETTINGS REMAIN THE SAME AT 14/350/5/30%. PT CONTINUES TO BE ON PROPOFOL RUNNING AT 30MCG, LEVOPHED DOUBLE STRENGHT IS RUNNING AT 24MCG/MIN, VASOPRESSIN RUNNING AT 0.04UNITS AND JONI RUNNING AT 20MCG/MIN, PT'S MAPS HAVE BEEN >60 T/O THIS SHIFT. PT HAS NOT HAD A BM THIS SHIFT. GANN IS PATENT AND DRAINED 90MLS OF DARK PERCY URINE TO GRAVITY. PT'S AT THE BEDSIDE WAS GIVEN AN UPDATE AND PLAN OF CARE FOR THE DAY. WILL CONTINUE TO MONITOR UNTIL REPORT IS GIVEN TO ONCOMING RN
[2020-07-24 19:40] LABS: Hematocrit 20.1 % (33.0-51.0); Mean Corpuscular Volume 85 fL (80-100); Mean Platelet Volume 11.9 fL (9.1-12.4); NRBC ABSOLUTE 0.03 K/mm3 (0.00-0.02); NRBC Auto 0.1 /100 WBC (0.0-0.2); Platelet Count 126 K/mm3 (150-400); RDW Coefficient Variation 17.3 % (11.7-14.2); RDW Standard Deviation 49.8 fL (35.1-46.3); Red Blood Cell Count 2.38 M/mm3 (3.80-5.20); White Blood Cell Count 21.99 K/mm3 (4.00-11.30)
--- NOTE | 2020-07-24 20:00 | NUR ---
ASSUMED CARE OF PT AT 1915. REPORT RECEIVED AT BEDSIDE. PT PRESENTS IN BED. INTUBATED. [place] TUBE TO [address] STRONG COMES TO ROOM. ASPIRATE FROM GASTRIC PORTION OF TUBE WITH TISH BLOOD RETURN. H/H DRAWN, AND SENT TO LAB. WILL CALL DR STRONG WITH RESULTS. WILL REVIEW CHART AND PLAN OF CARE FOR THIS PT.
[2020-07-24 20:14] LABS: Hemoglobin 7.6 g/dL (11.5-16.0); Mean Corpuscular HGB 31.9 pg (26.0-34.0); Mean Corpuscular HGB Conc 37.8 g/dL (31.5-36.5)
[2020-07-24 20:16] LABS: BAND PERCENT MAN 21 % (0-8); BASOPHILS PERCENT MAN 0 % (0-2); EOSINOPHILS ABSOLUTE MAN 1.31 K/mm3 (0.00-0.68); EOSINOPHILS PERCENT MAN 6 % (0-6); LYMPHOCYTES ABSOLUTE MAN 3.07 K/mm3 (0.84-5.20); LYMPHOCYTES PERCENT MAN 14 % (21-46); MONOCYTES ABSOLUTE MAN 1.53 K/mm3 (0.16-1.47); MONOCYTES PERCENT MAN 7 % (4-13); MYELOCYTE ABSOLUTE MAN 0.43 K/mm3 (0.00-0.00); MYELOCYTE PERCENT MAN 2 % (0-0); NEUTROPHILS ABSOLUTE MAN 15.61 K/mm3 (1.96-9.15); SEG NEUTROPHILS PERCENT MAN 50 % (41-73); TOTAL CELLS COUNTED 100
--- NOTE | 2020-07-24 23:00 | NUR ---
DR STRONG BACK TO PT'S ROOM SECONDARY TO DEFLATION OF [place] TUBE. TUBE REMOVED BY DR TSRONG ON NEW TUBE REPLACED. VERIFIED POSITIONING BY XRAY. ESOPHAGEAL PRESSURES SET TO 30-[address] STRONG'S REQUEST. WILL DO AT LEAST Q 4 HOUR PRESSURE CHECKS AND ALSO PRN. PT CONTINUES ON LEVOPHED AND VASOPRESSIN DRIPS FOR PRESSURE SUPPORT. PT IN PROCESS OF A UNIT OF PRBC'S. NO S/S TRANSFUSION REACTIONS. WILL CONTINUE TO MONITOR PT.
--- NOTE | 2020-07-25 02:22 | NUR ---
PRESSURES PER [place] TUBE REMAIN STABLE. 2 POUND TRACTION REMAINS. VENT CONTINUES AT AC 14, Tv 350, PEEP 5, FIO2 35 PERCENT. MAINTAINS > 90 PERCENT SATURATION. HAS COMPLEETED PRBC'S. NO S/S ADVERSE REACTIONS TO NOTE. HAVE BEEN ABLE TO TITRATE DOWN LEVOPHED TO 15 MCG'S/MIN. WILL MONITOR AND MAINTAIN MAP > 65.
[2020-07-25 04:14] LABS: Hematocrit 21.7 % (33.0-51.0); Hemoglobin 8.1 g/dL (11.5-16.0); Mean Corpuscular HGB 31.3 pg (26.0-34.0); Mean Corpuscular HGB Conc 37.3 g/dL (31.5-36.5); Mean Corpuscular Volume 84 fL (80-100); Mean Platelet Volume 11.5 fL (9.1-12.4); NRBC ABSOLUTE 0.06 K/mm3 (0.00-0.02); NRBC Auto 0.3 /100 WBC (0.0-0.2); Platelet Count 95 K/mm3 (150-400); RDW Coefficient Variation 16.4 % (11.7-14.2); RDW Standard Deviation 47.1 fL (35.1-46.3); Red Blood Cell Count 2.59 M/mm3 (3.80-5.20); White Blood Cell Count 19.13 K/mm3 (4.00-11.30)
[2020-07-25 04:32] LABS: BAND PERCENT MAN 19 % (0-8); BASOPHILS ABSOLUTE MAN 0.19 K/mm3 (0.00-0.23); BASOPHILS PERCENT MAN 1 % (0-2); EOSINOPHILS ABSOLUTE MAN 0.19 K/mm3 (0.00-0.68); EOSINOPHILS PERCENT MAN 1 % (0-6); LYMPHOCYTES PERCENT MAN 11 % (21-46); METAMYELOCYTE ABSOLUTE MAN 0.19 K/mm3 (0.00-0.00); METAMYELOCYTE PERCENT MAN 1 % (0-0); MONOCYTES ABSOLUTE MAN 0.38 K/mm3 (0.16-1.47); MONOCYTES PERCENT MAN 2 % (4-13); MYELOCYTE ABSOLUTE MAN 0.19 K/mm3 (0.00-0.00); MYELOCYTE PERCENT MAN 1 % (0-0); NEUTROPHILS ABSOLUTE MAN 15.87 K/mm3 (1.96-9.15); SEG NEUTROPHILS PERCENT MAN 64 % (41-73); TOTAL CELLS COUNTED 100
[2020-07-25 04:35] LABS: Albumin, Blood 1.3 g/dL (3.4-5.0); Albumin/Globulin Ratio 0.6 (0.8-1.8); Bilirubin, Total 15.8 mg/dL (0.1-1.0); Bun/Creatinine Ratio 20.1 (12.0-20.0); Calcium, Blood 7.5 mg/dL (8.5-10.1); Creatinine, Blood 3.23 mg/dL (0.40-1.00); Globulin, Blood 2.3 g/dL (2.2-4.0); Potassium, Blood 3.9 mmol/L (3.5-5.5); Total Protein, Blood 3.6 g/dL (6.4-8.2)
--- NOTE | 2020-07-25 06:51 | NUR ---
[place] TUBE UNFORTUNATELY BEGAN TO MIGRATE OUT. CALL MADE TO DR STRONG WHO ORDERS TO DEFLATE TUBE AND REMOVE. THIS IS DONE. OGT PLACED IMMEDIATELY AFTER [place] TUBE REMOVED. DR STRONG GAVE OK FOR OGT TO BE PLACED. RETURN OF BLOOD FROM OGT IN MODERATE AMOUNT. WILL REPORT OFF TO ONCOMING RN.
[2020-07-25 08:04] LABS: Hematocrit 20.5 % (33.0-51.0); Hemoglobin 7.6 g/dL (11.5-16.0)
--- NOTE | 2020-07-25 08:21 | NUR ---
ASSESSMENT- PT SEDATED WITH PROPOFOL AT 35 MCG/KG/MIN. NO RESPONSE TO VERBAL OR PAINFUL STIMULUS. DECREASING PROPOFOL. PERRL. SCLERAL EDEMA. REPOSITIONED TO SIDE. ORALLY INTUBATED, TUBE SECURE. SUCTIONED THIN SURESH SECRETIONS. LUNGS CLEAR. APICAL REGULAR, NSR. SBP STABLE WITH LEVOPHED AT 15 MCG/MIHAELA. VASOPRESSIN AT 0.04 UNITS/MIN. DECREASED LEVOPHED TO 13 MCG/MIN. LEFT ARM PICC DI. NS TKO, PROTONIX GTT INFUSING, SANDOSTATIN AT 50 MCG/HR. ABDOMEN LARGE, SOFT. NO BOWEL SOUNDS HEARD. OGT TO LIS, ADVANCED BY DRE STOVALL AND VERIFIED BY XRAY. UO VIA GANN ADEQUATE, URINE ICTERIC. SCDS ON. ANASARCA, FEET WITH 4+EDEMA. BILATERAL WRIST RESTRAINTS FOR SAFETY, EXTUBATION RISK.
--- NOTE | 2020-07-25 09:59 | NUR ---
Pal Care visit - Pt's [place] tube has been d/c'd and propofol decreased at present. Pt appears to be working harder with respiration. Also noted increased edema of hands, feet, around neck and face compared to yesterday. Pt drooling our side of mouth. Pt given additional blood since I saw her yesterday and hgb down to 7 again, cont bleeding suspected per RN. Case conferenced with pt's RN. had just called in for update and RN requests that I call him also, which I will do now. Pt does not demonstrate nonverbal indicators of pain or distress outside of increased work of respiration on vent. Pt is nonresponsive to voice or touch.
--- NOTE | 2020-07-25 10:13 | NUR ---
T/C to Eusebio for support. He is struggling with "what to do now" and wanted to know how long Maura would last "on her own" with current tx. We discussed options of cont tx or withdrawl of life support. I asked if he had a sense of what Maura would want if she was able to view the realities of her current situation clearly. He stataed, "I know she would not want to be miserable". When he asked again how long she could live like this I told him I had no idea of time or events in future, but currently she is being fully supported by ventilator, pressors, fluids, transfusions. Educated that patient is not functioning, "on her own" at this time. We reviewed her lack of kidney and liver function, inability to maintain respiration or BP. We spoke at length abaout their children. Eusebio believes they have no idea why mom is not home. He states she had nearly a week home with them prior to her hospital readmission and that "she couldn't do much", but she was here. I encouraged him to begin the conversation with them about how gravely ill their mom is. I discussed that they may have some understanding from their own observations during their week with her, about their mom's illness. Daughters are 7 and 8. I asked if he had any family support with grandparents or other family/friends who could assist him. Eusebio was unsure. I will reach out to our Set Up Technician for anticipatory bereavement support also. I reviewed the update Eusebio received from Maura's nurse as he understands it. He verbalized his feelings, which I encouraged about "how much this sucks". I instructed that until we had direction from him otherwise, drs would continue her current plan of care and update him of any changes. I invited him to call us at any time with questions or thoughts. We discussed benefit vs burden of current tx for Maura and he again reiterated that she would not want to be left in misery. I shared my assessment that pt is not in pain or distress that we can observe at this time and she is being medicated and supported for s/s management also. Eusebio verbalized understanding.
--- NOTE | 2020-07-25 10:23 | NUR ---
RETURN CALL TO PT'S , UPDATED, QUESTIONS ANSWERED. PALLIATIVE CARE RN UPDATED-WILL ALSO CALL. TOLERATING VENT. PROPOFOL WEANED TO OFF, NO RESPONSE. REPOSITIONED, MEDIUM MAROON/BLACK STOOL. PERICARE DONE. LARGE HEMORRHOID INTACT.
--- NOTE | 2020-07-25 10:35 | NUR ---
PT REACHING FOR ETT, COUGHING, TEARFUL. PROPOFOL RESTARTED.
--- NOTE | 2020-07-25 14:06 | NUR ---
VSS WITH LEVOPHED AT 7 MCG/MIN AND VASOPRESSIN AT 0.04 UNITS/MIN. TOLERATING VENT. REPOSITIONED. NO FURTHER STOOL, SMALL AMOUNT BLOODY DRAINAGE FROM OGT.
[2020-07-25 14:26] LABS: Hemoglobin 6.5 g/dL (11.5-16.0)
[2020-07-25 14:32] LABS: Hematocrit 17.8 % (33.0-51.0)
--- NOTE | 2020-07-25 15:43 | NUR ---
BLOOD SLIP AVAILABLE FOR PLATELETS. CALL TO DR DAILEY TO CLARIFY AND SHE STATED PLATELETS ARE NOT NEEDED AT THIS TIME AND TO ONLY INFUSE PRBCS. PRIMARY NURSE AND LAB AWARE
--- NOTE | 2020-07-25 15:46 | NUR ---
HEMOGLOBIN 6.5, VSS. UPDATE TO DR. DAILEY, ORDERS FOR ONE UNIT PC TRANSFUSION. OGT INTACT, IRRIGATED WITH AIR 50 CC BLOODY DRAINAGE. NSR. BP STAABLE WITH LEVOPHED AT 7 ANT VASOPRESSIN AT 0.04 UNITS/MIN. BLOOD TRANSFUSION STARTED. HERE-UPDATED.
--- NOTE | 2020-07-25 16:30 | NUR ---
BLOOD INFUSING WITHOUT S/S REACTION. VS UNCHANGED. ORAL CARE-OOZING FROM MOUTH. REPOSTIONED.
--- NOTE | 2020-07-25 18:30 | NUR ---
BLOOD INFUSED WITHOUT S/S REACTION. DR. STRONG HERE-REVIEWED PLAN OF CARE. PLANS TO REPLACE [place]-UNAVAILABLE IN HOUSE NOW-WILL ORDER. RECHECK H/H. NO NUTRITION FOR NOW D/T PLANS TO REPLACE TUBE. DESHAUN POON FOR LOW TEMP. RIGHT FEMORAL CORDIS INTACT, NS TKO TO SITE AND SANDOSTATIN TO SITE, DRSG CHANGED. PROTONIX GTT CONTINUES, LEVOPHED AT 7 MCG/MIN AND VASOPRESSIN FOR BP SUPPORT. NSR 80'S. UO ADEQUATE.
[2020-07-25 19:53] LABS: Hematocrit 19.6 % (33.0-51.0); Hemoglobin 7.4 g/dL (11.5-16.0)
--- NOTE | 2020-07-25 21:43 | NUR ---
ASSUMED CARE OF PT AT 1915. REPORT RECEIVED. PT PRESENTS IN BED. INTUBATED WITH VENT SETTINGS: AC 14, Tv 350, FIO2 35%, PEEP 5. PT MAINTAINS SATURATIONS > 90 PERCENT. LEVOPHED AT 7 MCG/MIN DECREASED TO 5 MCG'S/MIN. PROPOFOL AT 25 MCG'S AND INCREASED TO 30 MCG'S/KG/MIN THIS TO IMPROVE VENT TOLERANCE. HAVE MEDICATED PT WITH 50 MCG'S FENTANYL TO IMPROVE VENT TOLERANCE, AND NOTED GRIMACING. THIS AFFECTIVE. PT'S CALLS TO CHECK ON PT THIS EVENING. UPDATE GIVEN. WILL REVIEW CHART AND PLAN OF CARE FOR THIS PT.
--- NOTE | 2020-07-25 23:00 | NUR ---
PT'S CALLS FOR UPDATE ON HOW SHE IS DOING. THIS PROVIDED. ALLOWED HUGO TO ASK QUESTIONS. HE VERBALIZES FRUSTRATION ABOUT PT'S STATUS. VERBALIZES THAT PALLIATIVE CARE HAS BEEN HELPFUL FOR HIM. HE STATES HE WILL CALL BACK IN THE MORNING.
--- NOTE | 2020-07-26 02:00 | NUR ---
FULL BEDBATH DONE. PT HAS BEEN INCONTINENT TO LARGE BLACK LOOSE STOOL. PT TOLERATES BATH WELL. HAVE BEEN ABLE TO TITRATE LEVOPHED DOWN MORE. PT HAS BEEN MAINTAINING MAP >65. VENT SETTINGS REMAIN UNCHANGED. MAINTAINS SATURATIONS > 90.
[2020-07-26 04:11] LABS: Hematocrit 18.8 % (33.0-51.0); Hemoglobin 6.9 g/dL (11.5-16.0); Mean Corpuscular HGB 31.5 pg (26.0-34.0); Mean Corpuscular HGB Conc 36.7 g/dL (31.5-36.5); Mean Corpuscular Volume 86 fL (80-100); Mean Platelet Volume 10.9 fL (9.1-12.4); Platelet Count 53 K/mm3 (150-400); RDW Coefficient Variation 16.5 % (11.7-14.2); Red Blood Cell Count 2.19 M/mm3 (3.80-5.20); White Blood Cell Count 9.88 K/mm3 (4.00-11.30)
[2020-07-26 04:28] LABS: Albumin, Blood 1.2 g/dL (3.4-5.0); Albumin/Globulin Ratio 0.5 (0.8-1.8); Bilirubin, Total 13.3 mg/dL (0.1-1.0); Calcium, Blood 6.7 mg/dL (8.5-10.1); Creatinine, Blood 3.29 mg/dL (0.40-1.00); Globulin, Blood 2.3 g/dL (2.2-4.0); Potassium, Blood 3.7 mmol/L (3.5-5.5); Total Protein, Blood 3.5 g/dL (6.4-8.2)
[2020-07-26 04:37] LABS: BAND PERCENT MAN 12 % (0-8); BASOPHILS PERCENT MAN 0 % (0-2); EOSINOPHILS PERCENT MAN 0 % (0-6); LYMPHOCYTES ABSOLUTE MAN 0.69 K/mm3 (0.84-5.20); LYMPHOCYTES PERCENT MAN 7 % (21-46); MONOCYTES ABSOLUTE MAN 0.09 K/mm3 (0.16-1.47); MONOCYTES PERCENT MAN 1 % (4-13); MYELOCYTE ABSOLUTE MAN 0.19 K/mm3 (0.00-0.00); MYELOCYTE PERCENT MAN 2 % (0-0); NEUTROPHILS ABSOLUTE MAN 8.89 K/mm3 (1.96-9.15); SEG NEUTROPHILS PERCENT MAN 78 % (41-73); TOTAL CELLS COUNTED 100
--- NOTE | 2020-07-26 05:42 | NUR ---
HAVE BEEN ABLE TO TITRATE DOWN TO 2 MCG'S/MIN. VASOPRESSIN IS CURRENTLY OFF. AM LABS REVEAL HGB 6.9. VERBAL ORDER GIVEN BY DR STRONG IN EVENING TO TRANSFUSE IF HGB IS LESS THAN 7.0. PT IN PROCESS OF TRANSFUSION. NO S/S TRANSFUSION REACTIONS TO NOTE. NO TISH BLEEDING TO NOTE. PT DOES HAVE LARGE INCONTINENT BLACK COLORED STOOL. DR STRONG HAD CALLED AT APPROX [phone] THIS MORNING AND INQUIRED ABOUT PT. UPDATE WAS GIVEN. PT HAS TOLERATED Q 2 HOUR TURNS IN BED. WILL CONTINUE TO MONITOR PT, AND WILL REPORT OFF TO ONCOMING RN.
[2020-07-26 07:48] LABS: Hematocrit 19.4 % (33.0-51.0); Hemoglobin 7.2 g/dL (11.5-16.0)
--- NOTE | 2020-07-26 08:00 | NUR ---
PT REMAINS INTUBATED, SEDATED, AND RESTRAINED. PT GRIMACING TO PAINFUL STIMULI WITH PROPOFOL @ 30 MCG/KG/MIN. MED WITH FENTANYL 50 MCG IVP X 1 PAIN/SEDATION ADJUNCT. ECG SHOWS SR TO ST. MAP TRENDING LESS THAN 60- HAVE TITRATED LEVOPHED FROM 2 TO 8 TO MAINTAIN MAP>60-65. BRIGHT RED BLOOD OOZING FROM NOSE AND MOUTH. OGT WITH DARK, RED, BLODDY DRAINAGE. PT INCONTINENT OF LARGE, BLACK, TARRY STOOL. RECTAL TUBE PLACED. H&H SENT POST TRANSFUSION. ETT TO VENT: AC 14, RR 20'S. TV 350, PEEP 5, FIO2 35%. LUNGS DIMINISHED IN THE BASES-SATS>90% ETT SUCTION PRODUCTIVE OF MODERATE AMOUNT OF THICK, YELLOW SECRETIONS. GENERALIZED, PITTING EDEMA NOTED-ESPECIALLY FROM TORSO DOWN TO TOES. SKIN AND SCLERA JAUNDICED-SCLERAL EDEMA NOTED. GANN WITH SCANT AMOUNT OF DARK, PERCY URINE TO UROMETER.
--- NOTE | 2020-07-26 11:15 | NUR ---
SBP 70'S. PT BLEEDING (BRIGHT RED BLOOD) FROM NOSE, MOUTH, ETT, RIGHT FEMORAL CORDIS SITE, OGT, RECTAL TUBE, GANN, AND VAGINA. LEVOPHED TITRATED UP TO 15 MCG TO KEEP MAP 60-65. DR. STRONG AND DR. BARTON NOTIFIED. STAT COAGS AND CBC DRAWN AND SENT TO LAB.
--- NOTE | 2020-07-26 11:30 | NUR ---
PT CONTINUES TO OOZE BRIGHT RED BLOOD FROM NOSE, MOUTH, ETT, OGT, RECTAL TUBE, GANN, AND VAGINA. LEVPHED @ 20 MCG/MIN TO KEEP MAP 60-65. DR. BARTON CONTACTED PT SPOUSE TO UPDATE REGARDING PROGNOSIS. PLAN TO MAKE COMFORT CARE PER HER SPOUSE REQUEST. EULALIA YOUSSEF AWARE. PASTORAL CARE, JONNY AT THE BEDSIDE WELL.
--- NOTE | 2020-07-26 11:39 | NUR ---
Called to ICU pt indecline increased bleeding from mouth nose eyes and iv sites and hernandez. pt vitals declining. Team confrence with intesivist to review options of care. charge nurse notifed Dr. Esteban. Doctor wagner at bedside. Dr Wagner had carful conversation with patients on prognosis and suffering and straight forward presntition of eminent . He discused wtih comeing in to ee her and making a decion and withdrawing care. Pt expressed to doctor wagner great grief and not wanting to participate in process and being with his children. Chaplidenisse Akbar spoke with him and we will proceed with extubation. RT at bedside and chaplian with prayer. Comfort orders placed. Maura will be treated with utmost respect on her journey.
--- NOTE | 2020-07-26 11:56 | NUR ---
PT EXTUBATED, IVF, DRIPS, AND PRESSORS DISCONTINUED. MED WITH ATIVAN AND MORPHINE-SEE EMAR.
--- NOTE | 2020-07-26 12:10 | NUR ---
PT GRIMACING, NAREN-LEMUS RESPIRATIONS NOTED. MED WITH MORPHINE 4 MG IVP FOR AIR HUNGER/PAIN.
--- NOTE | 2020-07-26 13:18 | NUR ---
Patient's spouse, Jones is on the phone with Dr. Wagner hearing that there is nothing more that can be done with his . He hands me the phone and I talk with Jones. Jones tells me that he has good support from his mother and many friends. He tells me how he is prepared for this but it is still difficult. I provide grief support on the phone to which Jones responds favorably. He agrees that I should go and say a prayer for patient just prior to extubation. I then go and do just that and provide prayer. I continue to remain available to Jones and the family.
--- NOTE | 2020-07-26 15:45 | NUR ---
PT CONTINUES WITH NAREN-LEMUS RESPIRATIONS. AIR HUNGER IMPROVES WITH ROXANOL. REPORTS PHONED TO [facility] IN PREP TO TRANSFER PT TO ROOM 356.
--- NOTE | 2020-07-26 17:12 | NUR ---
SUMMARY PT TRANSFERRED UP FROM ICU, PT OBTUNDED AND UNRESPONSIVE, NAREN LEMUS BREATHING, WILL MEDICATE FOR COMFORT AND MONITOR
--- NOTE | 2020-07-26 18:01 | NUR ---
WHILE ROUNDING, FOUND PT TO NOT BE BREATHING, AND PULSELESS, 173, NOTIFIED THE NURSING VISION MIXER AND AIRCRAFT INSPECTION RECORD CLERK
--- NOTE | 2020-07-26 18:34 | NUR ---
Pt assited staff with finale discharge.
--- NOTE | 2020-07-26 18:42 | NUR ---
PALLIATIVE CARE RN NOTIFIED SPOUSE AND HOSPITALIST, COAL MINE INSPECTOR CALLED THE MORTUARY, WAITING FOR PT TO BE PICKED UP CURRENTLY
== END 2020-07-26 17:35 | DRG 326 ==
LOC: ER 04:21 → ICUW 05:49 → MEDS 07-26 16:18
PROVIDERS: Emergency Medicine; Internal Medicine; Internal Medicine Gastroenterology; Internal Medicine Pulmonary Disease; ADMIT Internal Medicine
PROC: 0D968ZZ Drainage of Stomach, Via Natural or Artificial Opening Endoscopic (ICD-10-PCS; 2020-07-23)
PROC: 30233L1 Transfusion of Nonautologous Fresh Plasma into Peripheral Vein, Percutaneous Approach (ICD-10-PCS; 2020-07-23)
PROC: 30233R1 Transfusion of Nonautologous Platelets into Peripheral Vein, Percutaneous Approach (ICD-10-PCS; 2020-07-23)
PROC: 30233K1 Transfusion of Nonautologous Frozen Plasma into Peripheral Vein, Percutaneous Approach (ICD-10-PCS; 2020-07-23)
PROC: 02HV33Z Insertion of Infusion Device into Superior Vena Cava, Percutaneous Approach (ICD-10-PCS; 2020-07-23)
PROC: 3E043XZ Introduction of Vasopressor into Central Vein, Percutaneous Approach (ICD-10-PCS; 2020-07-23)
PROC: 06HM33Z Insertion of Infusion Device into Right Femoral Vein, Percutaneous Approach (ICD-10-PCS; 2020-07-23)
PROC: 0D758ZZ Dilation of Esophagus, Via Natural or Artificial Opening Endoscopic (ICD-10-PCS; 2020-07-23)
PROC: 0W3P8ZZ Control Bleeding in Gastrointestinal Tract, Via Natural or Artificial Opening Endoscopic (ICD-10-PCS; 2020-07-23)
PROC: 30233N1 Transfusion of Nonautologous Red Blood Cells into Peripheral Vein, Percutaneous Approach (ICD-10-PCS; principal; 2020-07-23 10:00)
PROC: 0D958ZZ Drainage of Esophagus, Via Natural or Artificial Opening Endoscopic (ICD-10-PCS; 2020-07-23 10:00)
PROC: 0BH18EZ Insertion of Endotracheal Airway into Trachea, Via Natural or Artificial Opening Endoscopic (ICD-10-PCS; 2020-07-24)
PROC: 5A1945Z Respiratory Ventilation, 24-96 Consecutive Hours (ICD-10-PCS; 2020-07-24)
DX: K91.89 Other postprocedural complications and disorders of digestive system (principal); K22.11 Ulcer of esophagus with bleeding; N17.0 Acute kidney failure with tubular necrosis; K72.00 Acute and subacute hepatic failure without coma; J96.90 Respiratory failure, unspecified, unspecified whether with hypoxia or hypercapnia; J18.9 Pneumonia, unspecified organism; A41.9 Sepsis, unspecified organism; R65.21 Severe sepsis with septic shock; Z66 Do not resuscitate; Z51.5 Encounter for palliative care; K76.6 Portal hypertension; I31.3 Pericardial effusion (noninflammatory); J90 Pleural effusion, not elsewhere classified; E87.2 Acidosis; E44.0 Moderate protein-calorie malnutrition; D62 Acute posthemorrhagic anemia; E87.1 Hypo-osmolality and hyponatremia; I42.9 Cardiomyopathy, unspecified; K56.7 Ileus, unspecified; Z20.822 Contact with and (suspected) exposure to COVID-19; F43.10 Post-traumatic stress disorder, unspecified; K75.81 Nonalcoholic steatohepatitis (NASH); F32.9 Major depressive disorder, single episode, unspecified; R57.8 Other shock; K70.11 Alcoholic hepatitis with ascites; E66.3 Overweight; D69.59 Other secondary thrombocytopenia; K70.31 Alcoholic cirrhosis of liver with ascites; K31.89 Other diseases of stomach and duodenum; Z90.89 Acquired absence of other organs; Z98.890 Other specified postprocedural states; Z88.8 Allergy status to other drugs, medicaments and biological substances; Z86.19 Personal history of other infectious and parasitic diseases; Z87.891 Personal history of nicotine dependence; Z79.899 Other long term (current) drug therapy; Z98.51 Tubal ligation status; Z68.31 Body mass index [BMI] 31.0-31.9, adult; Y83.8 Other surgical procedures as the cause of abnormal reaction of the patient, or of later complication, without mention of misadventure at the time of the procedure
CPT/HCPCS: 0241U; 31500; 36415; 36430; 36556; 36569; 51703; 71045; 76700; 80048; 80053; 81001; 82140; 82310; 82330; 82803; 83605; 83690; 83735; 85014; 85018; 85025; 85027; 85384; 85610; 85730; 86850; 86900; 86901; 86923; 87040; 87086; 93005; 93010; 94002; 94003; 96365-59; 96368; 96375-59; 99285-25; A9270; C1751; C1894; C9113; G0480; J0171; J0610; J0696; J0744; J1430; J2060; J2250; J2270; J2354; J2370; J2405; J2550; J2704; J2765; J3010; J3430; J3475; J7030; J7040; J7050; J7060; P9016; P9035; P9059